=== PATIENT | male | born 1965 | race Caucasian/White ===

== ENCOUNTER 2019-12-25 00:19 | Outpatient (CLI) | payer OTHER, SELFPAY ==
[2019-12-25 19:01] LABS: SARS-CoV-2 RNA PCR Negative
== END 2019-12-25 00:20 | disposition home or self-care (01) ==
LOC: ANHCOVIDDT 00:19
PROVIDERS: PCP Family Medicine; Visit Provider Internal Medicine Gastroenterology
DX: Z01.812 Encounter for preprocedural laboratory examination (principal); Z11.59 Encounter for screening for other viral diseases
CPT/HCPCS: 87635; C9803; U0003

== ENCOUNTER 2019-12-27 03:19 | Day surgery (SDC) | payer OTHER, SELFPAY ==
[2019-12-19 14:50] VITALS: BMI 26.7
--- NOTE | 2019-12-27 06:25 | WPDANESEPPF ---
Anes - Initial Pre Proc Eval Procedure: Operation Date: 12/27/19 07:30 Proposed Procedures p Screening Colonoscopy - Sarwat Chandra MD Date/Time: 12/27/19 06:25 Surgeon: Sarwat Chandra MD Pre Op Diagnosis: neoplasm screening, hx of polyps Patient Data Age: 54 Gender: M Height: 5 ft 11 in Weight: 87 kg Allergies Allergy/AdvReac Type Severity Reaction Status Date / Time No Known Allergies Allergy Unknown Verified 12/19/19 14:54 Home Medications Medication Instructions Recorded Confirmed Type eszopiclone 2 mg tablet 2 mg PO QPM #90 tablet 10/02/19 12/19/19 Rx Patient hx anesthesia problems: none Family hx anesthesia problems: none PMFSH Past Medical History Medical History (Updated 12/27/19 @ 06:25 by Tobi Bryan MD) JESSIKA (obstructive sleep apnea) Overweight Pre-diabetes Family History Family History Other Diabetes mellitus Family history of arthritis Hypertension Social History Social History Smoking status: Former smoker Smoking end date: 06/12/03 Alcohol intake: current Gender identity (if verbalized by the patient): Male Anes - Eval Final PreProcedure Day of Procedure 12/27/19 06:25 Patient weight: overweight Heart: regular rate and rhythm Lungs: clear to auscultation Airway: Mallampati scale class II Neurological: alert and oriented Last oral intake: >/= 8 hours ASA classification: II Emergent: no Anesthetic plan: proceed Anesthesia type and monitoring: general GIVS and standard monitoring Informed Consent: The patient's anesthetic plan and its attendant risks and benefits were discussed with the patient/family/POA. Questions were solicited and answers provided to the satisfaction of the patient/family/POA.
[2019-12-27] MEDS: LACTATED RINGERS 1,000 ML 150 ML IV CONT (06:48)
[2019-12-27 06:50] VITALS: BP 133/88; PULSE 73; RESP 16; TEMP 36.6; O2SAT 100; BMI 26.2
--- NOTE | 2019-12-27 06:59 | P.HP_ITS ---
History of Present Illness History of Present Illness Consent: Risks, benefits, and alternatives have been discussed and questions answered. Patient agrees to proceed with procedure. Chief complaint: neoplasm screening, hx of polyps Narrative: Sarwat Casillas is a 54 year old male Here for screening colonoscopy. He did have polyps removed 5 years ago. [facility] Past Medical History Medical History JESSIKA (obstructive sleep apnea) Overweight Pre-diabetes Family History Family History Other Diabetes mellitus Family history of arthritis Hypertension Social History Social History Smoking status: Former smoker Smoking end date: 06/12/03 Alcohol intake: current Gender identity (if verbalized by the patient): Male Meds Home Medications and Allergies Home Medications Medication Instructions Recorded Confirmed Type eszopiclone 2 mg tablet 2 mg PO QPM #90 tablet 10/02/19 12/27/19 Rx Allergies Allergy/AdvReac Type Severity Reaction Status Date / Time No Known Allergies Allergy Unknown Verified 12/27/19 06:36 Vital Signs Vital Signs - 24 hr 12/27/19 06:50 Temperature 36.6 C Pulse Rate 73 Respiratory Rate 16 Blood Pressure 133/88 Pulse Oximetry 100 Exam Resp: Auscultation: clear to auscultation bilaterally Cardio: Rate: regular rate Rhythm: regular rhythm GI: GI Palp: Yes Soft to palpation and No Tenderness to palpation present (GI) Assessment and Plan Assessment and plan (1) Colon cancer screening: Code(s): Z12.11 - Encounter for screening for malignant neoplasm of colon Status: Acute Assessment and Plan: Colonoscopy with possible biopsy or polypectomy or cautery or injection of substances.
[2019-12-27 07:47] VITALS: BP 95/63; PULSE 67; RESP 17; O2SAT 96
[2019-12-27 07:57] VITALS: BP 100/65; PULSE 67; RESP 16; O2SAT 97
[2019-12-27 08:07] VITALS: BP 120/77; PULSE 60; RESP 15; O2SAT 99
--- NOTE | 2020-06-16 17:49 | PM.IMHP ---
H&P: HPI History of Present Illness Date/Time: 06/16/20 17:49 Chief Complaint: Myocardial infarction Narrative: Sarwat Casillas is a 54 year old male who has a history of having diabetes type 2 and hyperlipidemia. The patient's last A1c was around 7.0. The patient is intolerant to most p.o. medications for diabetes and takes medication once a week. He does follow with dermatology nurse. The patient states that he takes rybelus and that seems to work well for him. He takes it about once a week. The patient tried metformin but it gave him diarrhea. He tried the pride and he had insomnia as well as Januvia that gave him insomnia and forgets a was very expensive. He also tried Tradjenta which was also too expensive. He tried metformin but it gave him diarrhea. The patient tried to take every type of statin but he stated he had severe leg cramps and pains and was not able to take it. The patient stopped taking Zetia because he felt that it may have increased his A1c. Patient stated that he believes he started having chest pain around the 10 of June and had no previous cardiac events. The patient currently does not have any chest pain however he did follow-up with his primary care office today who did an EKG. Inferior infarct problem bleed a recent with posterior extensions. Moderate ST depression. Abnormal EKG. The patient was seen by Dr. Barrera today and Dr. Barrera recommended that the patient go to the emergency room however the patient did not want to go to the emergency room and therefore we decided the best decision was for the patient to become a direct admission. The patient was agreeable to becoming a direct admission is observation on date of service a 06/16/2020. Review of Systems Review of Systems: All systems reviewed & are unremarkable except as noted in HPI and below Constitutional: Constitutional: Reports as per HPI and Reports no additional constitutional complaints Eyes: Eyes: Reports as per HPI and Reports no additional eye complaints ENT: Reports system reviewed and no additional complaints, except as documented and Reports Normal hearing present Cardiovascular: Cardiovascular: Reports no additional cardiovascular complaints Respiratory: Respiratory: Reports no additional respiratory complaints and Reports no additional respiratory complaints Gastrointestinal: Gastrointestinal: Reports as per HPI and Reports no additional gastrointestinal complaints Musculoskeletal: Musculoskeletal: Reports no additional musculoskeletal complaints Integumentary/Breasts: Skin/Breast: Reports system reviewed and no additional complaints, except as docu and Reports as per HPI Neurologic: Reports system reviewed and no additional complaints, except as documented, Reports as per HPI and Reports Normal hearing present Psychiatric: Psychiatric: Reports no additional psychiatric complaints and Reports as per HPI Endocrine: Endocrine: Reports no additional endocrine complaints Hematologic/Lymphatic: Hematologic/Lymphatic: Reports no additional hematologic/lymphatic complaints Allergic/Immunologic: Allergic/Immunologic: Reports no additional allergic/immunologic complaints PMFSH Past Medical History Medical History (Updated 06/16/20 @ 18:11 by Gabriela Roper NP) JESSIKA (obstructive sleep apnea) Uses a dental apparatus. Overweight Pre-diabetes Type 2 diabetes mellitus without complications Last A1c 7.0. Surgical History Surgical History (Updated 06/16/20 @ 18:01 by Gabriela Roper NP) No history of previous surgery Family History Family History (Updated 06/16/20 @ 18:07 by Gabriela Roper NP) Mother Hypertension Diabetes mellitus Hyperlipidemia Sibling Cerebrovascular accident Sibling Hyperlipidemia Other Family history of arthritis Social History Social History (Updated 06/16/20 @ 18:09 by Gabriela Roper NP) Social History: And she is the durable power associate attorney for healthcare. The patien
== END 2019-12-27 08:16 | disposition home or self-care (01) ==
PROVIDERS: PCP Family Medicine; Visit Provider Internal Medicine Gastroenterology
PROC: 0DJD8ZZ Inspection of Lower Intestinal Tract, Via Natural or Artificial Opening Endoscopic (ICD-10-PCS; CPT 45378; principal; 2019-12-27 07:30)
DX: Z12.11 Encounter for screening for malignant neoplasm of colon (principal); K64.8 Other hemorrhoids; K57.30 Diverticulosis of large intestine without perforation or abscess without bleeding; G47.33 Obstructive sleep apnea (adult) (pediatric); R73.03 Prediabetes; Z87.891 Personal history of nicotine dependence
CPT/HCPCS: 45378; 87635; C9803; J2704; J7120; U0003

== ENCOUNTER 2020-06-16 16:58 | Inpatient (IN) | payer OTHER, SELFPAY ==
--- NOTE | ~2020-06-16 | XR_ITS ---
EXAMINATION: XR chest 2V EXAM DATE: 06/16/2020 19:06 INDICATION: Possible myocardial infarction last week, patient having cardiac catheterization. TECHNIQUE: Frontal and lateral projections of the chest obtained and reviewed. Comparison is made to prior examination from 03/30/2017. FINDINGS: The lungs are clear. There are no pleural effusions. The cardiomediastinal silhouette is within normal limits. There is no pneumothorax suspected. The bones and soft tissues are unremarkab le. IMPRESSION: No acute cardiopulmonary findings. Reviewed, dictated and finalized at location A. SUPERINTENDENT
[2020-06-16 17:15] VITALS: BMI 27.6
--- NOTE | 2020-06-16 17:21 | ECG_ITS ---
Measurements Intervals [place] Rate: 59 P: 44 HI: 162 QRS: -17 QRSD: 92 T: 31 QT: 421 QTc: 419 Interpretive Statements SINUS BRADYCARDIA EARLY PRECORDIAL R/S TRANSITION INFERIOR INFARCT, AGE INDETERMINATE BASELINE ARTIFACT- II, III, AVF ABNORMAL ECG Electronically Signed On 06-16-2020 18:10:45 FINGERNAIL TECHNICIAN by Thiago Ramirez D.O.
[2020-06-16 17:36] VITALS: BP 134/95; PULSE 66; RESP 18; TEMP 36.6; O2SAT 98
[2020-06-16 17:57] LABS: Hematocrit 42.9 % (42.0-52.0); Hemoglobin 15.1 g/dL (14.0-18.0); Mean Corpuscular HGB Conc 35.2 g/dl (32-36); Mean Corpuscular Hemoglobin 31.6 pg (26-34); Mean Corpuscular Volume 89.7 fl (80-100); Mean Platelet Volume 10.3 fl (7.4-10.4); Platelet Count Result 218 k/mm3 (150-375); Red Blood Count 4.78 M/mm3 (4.6-6.20); Red Cell Distribution Width 11.8 % (11.5-14.5); White Blood Count 5.3 K/mm3 (4.5-10.0)
[2020-06-16 18:07] LABS: Prothrombin Time 13.9 Seconds (11.1-14.7)
[2020-06-16 18:14] LABS: Anion Gap 8 mmol/L (8-16); Blood Urea Nitrogen 20 mg/dL (9-20); Calcium 9.2 mg/dL (8.4-10.2); Carbon Dioxide 24 mmol/L (22-30); Chloride 109 mmol/L (98-107); Estimated CRCL calculation 96 ml/min; Estimated Glomerular Filt Rate > 60; Glucose 141 mg/dL (75-110); Sodium 141 mmol/L (137-145)
--- NOTE | 2020-06-16 18:26 | PM.IMHP ---
H&P: HPI History of Present Illness Date/Time: 06/16/20 18:26 Chief Complaint: It too far off the myocardial infarction Narrative: Sarwat Casillas is a 54 year old male who has a history of having diabetes type 2 and hyperlipidemia. The patient's last A1c was around 7.0. The patient is intolerant to most p.o. medications for diabetes and takes medication once a week. He does follow with carrier loader. The patient states that he takes rybelus and that seems to work well for him. He takes it about once a week. The patient tried metformin but it gave him diarrhea. He tried the pride and he had insomnia as well as Januvia that gave him insomnia and forgets a was very expensive. He also tried Tradjenta which was also too expensive. He tried metformin but it gave him diarrhea. The patient tried to take every type of statin but he stated he had severe leg cramps and pains and was not able to take it. The patient stopped taking Zetia because he felt that it may have increased his A1c. Patient stated that he believes he started having chest pain around the 10 of June and had no previous cardiac events. The patient currently does not have any chest pain however he did follow-up with his primary care office today who did an EKG. Inferior infarct problem bleed a recent with posterior extensions. Moderate ST depression. Abnormal EKG. The patient was seen by Dr. Barrera today and Dr. Barrera recommended that the patient go to the emergency room however the patient did not want to go to the emergency room and therefore we decided the best decision was for the patient to become a direct admission. The patient was agreeable to becoming a direct admission is observation on date of service a 06/16/2020. Review of Systems Review of Systems: All systems reviewed & are unremarkable except as noted in HPI and below Constitutional: Constitutional: Reports as per HPI and Reports no additional constitutional complaints Eyes: Eyes: Reports as per HPI and Reports no additional eye complaints ENT: Reports system reviewed and no additional complaints, except as documented and Reports Normal hearing present Cardiovascular: Cardiovascular: Reports no additional cardiovascular complaints Respiratory: Respiratory: Reports no additional respiratory complaints and Reports no additional respiratory complaints Gastrointestinal: Gastrointestinal: Reports as per HPI and Reports no additional gastrointestinal complaints Musculoskeletal: Musculoskeletal: Reports no additional musculoskeletal complaints Integumentary/Breasts: Skin/Breast: Reports system reviewed and no additional complaints, except as docu and Reports as per HPI Neurologic: Reports system reviewed and no additional complaints, except as documented, Reports as per HPI and Reports Normal hearing present Psychiatric: Psychiatric: Reports no additional psychiatric complaints and Reports as per HPI Endocrine: Endocrine: Reports no additional endocrine complaints Hematologic/Lymphatic: Hematologic/Lymphatic: Reports no additional hematologic/lymphatic complaints Allergic/Immunologic: Allergic/Immunologic: Reports no additional allergic/immunologic complaints [facility] Past Medical History Medical History (Updated 06/16/20 @ 18:11 by Gabriela Roper NP) JESSIKA (obstructive sleep apnea) Uses a dental apparatus. Overweight Pre-diabetes Type 2 diabetes mellitus without complications Last A1c 7.0. Surgical History Surgical History (Updated 06/16/20 @ 18:01 by Gabriela Roper NP) No history of previous surgery Family History Family History (Updated 06/16/20 @ 18:07 by Gabriela Roper NP) Mother Hypertension Diabetes mellitus Hyperlipidemia Sibling Cerebrovascular accident Sibling Hyperlipidemia Other Family history of arthritis Social History Social History (Updated 06/16/20 @ 18:09 by Gabriela Roper NP) Social History: And she is the durable power assistant district attorney for heal
[2020-06-16 18:31] VITALS: BP 143/95; PULSE 67; PULSE 71; RESP 15; TEMP 36.6; O2SAT 98
[2020-06-16] MEDS: ROSUVASTATIN 10 MG TABLET PO (18:43)
[2020-06-16] MEDS: ENOXAPARIN 100 MG/ML SYRINGE 90 MG SUB-Q (18:43)
[2020-06-16 19:02] LABS: Magnesium 2.3 mg/dL (1.6-2.3)
[2020-06-16 19:04] LABS: Hemoglobin A1C 6.4 % (<5.7)
--- NOTE | 2020-06-16 19:08 | ADMGEN ---
This patient, Sarwat Casillas, was admitted to [facility]. Patient/family oriented to hospital policies and general routines including ID bracelet, bed and alarms, visiting hours, pain management, procedures, bathroom and other care routines, personal items, smoking policy, room service/diet, and visiting hours. Information on how to activate the Rapid Response Team has been discussed. Patient/Family are encouraged to report perceived risks to care and to ask questions if they do not understand what they are told or what they should do.
[2020-06-16 19:11] LABS: Lactic Acid Reflex 1.6 mmol/L (0.7-2.1)
[2020-06-16 19:52] VITALS: BP 128/86; PULSE 72; RESP 20; TEMP 36.5; O2SAT 97
[2020-06-16 20:00] VITALS: PULSE 80
[2020-06-16 21:01] LABS: Add Urine Microscopic? YES; Appearance Urine Clear (Clear); Bilirubin Urine Negative (Negative); Blood Urine Negative (Negative); Calcium Oxalate Crystals Urine Present /hpf; Color Urine Yellow (Yellow); Glucose Urine UA 2+ mg/dL (Negative); Ketones Urine Negative (Negative); Leukocyte Esterase Ur Negative LEU/UL (Negative); Mucus Urine Rare /lpf; Nitrate Urine Negative (Negative); Protein Urine Negative (Negative); RBC Urine 0-2 /hpf (0-2); Specific Grav Ur 1.028 (1.001-1.035); WBC Urine 0-3 /hpf
[2020-06-16 22:00] VITALS: PULSE 63
[2020-06-16 23:31] VITALS: BP 131/82; PULSE 77; RESP 14; TEMP 36.7; O2SAT 98
[2020-06-16] MEDS: MELATONIN 3 MG TABLET PO (23:32)
[2020-06-16] MEDS: LORazepam (*CRX) 0.5 MG TABLET PO (23:32)
[2020-06-16 23:37] LABS: Glucose Point of Care 123 (65-105)
[2020-06-17] VITALS (29 sets, daily range): BP systolic 113–151; BP diastolic 79–105; PULSE 60–88; RESP 11–20; TEMP 36.4–36.8; O2SAT 94–99
--- NOTE | 2020-06-17 | ECHO_ITS ---
Patient Info Name: Sarwat Casillas Age: 54 years : 1965 Gender: Male Ht: 71 in Wt: 198 lbs BSA: 2.14 m2 HR: 73 bpm BP: 129 / 79 mmHg Heart Rhythm: Sinus Rhythm Technical Quality: Good Exam Date: 06/17/2020 8:20 AM Exam Location: [facility] Patient Status: Inpatient Admit Date: 06/16/2020 Staff Ordering Physician: Luis Fernando Barrera MD Agricultural Appraiser: Josue Estrada, DONITA, RT Attending Provider: Tana Morales PA-C Referring Physician: Bruce BEST; Exam Type: CA echo doppler color flow Study Info Indications R07.89 - Other chest pain Complete two-dimensional, color flow and Doppler transthoracic echocardiogram is performed. Strain analysis performed. Summary 1. Complete two-dimensional, color flow and Doppler transthoracic echocardiogram is performed. 2. Left ventricular chamber dimension is normal. 3. Left ventricular systolic function is mildly reduced, estimated at 50-55%. 4. There is mildly increased left ventricular wall thickness. 5. The left ventricular diastolic function is grade I diastolic dysfunction. 6. Global longitudinal strain is abnormal at -14 %. 7. The basal inferior wall is akinetic. 8. The mid inferior wall, and mid inferolateral wall are hypokinetic. 9. Right ventricular chamber dimension is mildly enlarged. 10. Right ventricular systolic function is reduced. 11. There is mild to moderate mitral valve regurgitation. 12. There is mild tricuspid valve regurgitation. Left Ventricle Left ventricular chamber dimension is normal. Left ventricular systolic function is mildly reduced, estimated at 50-55%. There is mildly increased left ventricular wall thickness. The left ventricular diastolic function is grade I diastolic dysfunction. Global longitudinal strain is abnormal at -14 %. The basal inferior wall is akinetic. The mid inferior wall, and mid inferolateral wall are hypokinetic. All other pierre appear normal. Right Ventricle Right ventricular chamber dimension is mildly enlarged. Right ventricular systolic function is reduced. Left Atria Left atrial chamber dimension is normal. Right Atria Right atrial chamber dimension is normal. Atrial Septum Intact interatrial septum visualized by color flow imaging. Aortic Valve The aortic valve is trileaflet. There is no aortic valve sclerosis. There is no aortic valve stenosis. There is trace aortic valve regurgitation. Pulmonic Valve The pulmonic valve is normal. There is no pulmonic valve stenosis. There is trace pulmonic regurgitation. Mitral Valve The mitral valve has normal leaflets. There is no mitral valve stenosis. There is mild to moderate mitral valve regurgitation. Tricuspid Valve The tricuspid valve leaflets are normal. There is no significant tricuspid valve stenosis. There is mild tricuspid valve regurgitation. No pulmonary hypertension, estimated pulmonary arterial systolic pressure is 25 mmHg. Pericardium/Pleural The pericardium appears normal. There is no pericardial effusion. Inferior Vena Cava Normal inferior vena cava with >50% collapse upon inspiration consistent with normal right atrial pressure, 5 mmHg. Aorta The aortic root size at the sinus of Valsalva is normal. The prox ascending aorta size is normal. Left Ventricular Outflow Tract Name Value Normal
[2020-06-17 06:26] LABS: Magnesium 2.2 mg/dL (1.6-2.3)
[2020-06-17 06:38] LABS: Glucose Point of Care 158 (65-105)
[2020-06-17 06:42] LABS: Troponin I 0.941 ng/mL (0.000-0.034)
--- NOTE | 2020-06-17 10:47 | WPDMODSED ---
Moderate Sedation Note-Pt Data Patient Data Diagnosis: recent myocardial infarction Present Complaint: no complaints Procedure to be performed/Plan: left heart catheterization Allergies Allergy/AdvReac Type Severity Reaction Status Date / Time No Known Allergies Allergy Unknown Verified 06/16/20 14:11 Home Medications Medication Instructions Recorded Confirmed Type semaglutide 3 mg tablet 3 mg PO WEEKLY #1 tablet 01/24/20 06/16/20 Rx eszopiclone 2 mg tablet 2 mg PO QPM #90 tablet 04/14/20 06/16/20 Rx Current Medications: Active Medications Aspirin (Aspirin 325 Mg Tablet) 325 mg PO DAILY@0800 [facility] Last Admin: 06/16/20 19:03 Dose: Not Given Documented by: Dextrose (Dextrose 50% 25 Gm/50 Ml Syringe) 12.5 gm IV PUSH PRN PRN; Protocol PRN Reason: Hypoglycemia Enoxaparin Sodium (Enoxaparin 100 Mg/Ml Syringe) 90 mg SUB-Q Q24H [facility] Last Admin: 06/16/20 18:43 Dose: 90 mg Documented by: Glucagon (Glucagon For Inj 1 Mg Vial) 1 mg IM PRN PRN; Protocol PRN Reason: Hypoglycemia Glucose (Glucose Oral Gel 15 Gm Of Glucse In 37.5 Gm Tube) 15 gm PO PRN PRN; Protocol PRN Reason: Hypoglycemia Dextrose (Dextrose 5% 1,000 Ml) 1,000 mls @ 100 mls/hr IVPB PRN PRN; Protocol PRN Reason: Hypoglycemia Insulin Aspart (Insulin Aspart (*Bkc) 100 Units/Ml) 2 - 5 units SUB-Q Q6HR AZALEA; Protocol Last Admin: 06/17/20 06:59 Dose: Not Given Documented by: Non-Formulary Medication (Eszopiclone [Lunesta]) 2 mg PO QPM [facility] Stop: 07/17/20 18:01 Rosuvastatin Calcium (Rosuvastatin 10 Mg Tablet) 10 mg PO QPM [facility] Last Admin: 06/16/20 18:43 Dose: 10 mg Documented by: Sedation/Anesthesia: No previous sedation/anesthesia problems (including family history). FOR[facility]LY [facility], [facility] Past Medical History Medical History (Updated 06/16/20 @ 18:11 by Gabriela Roper NP) JESSIKA (obstructive sleep apnea) Uses a dental apparatus. Overweight Pre-diabetes Type 2 diabetes mellitus without complications Last A1c 7.0. Surgical History Surgical History (Updated 06/16/20 @ 18:01 by Gabriela Roper NP) No history of previous surgery Family History Family History (Updated 06/16/20 @ 18:07 by Gabriela Roper NP) Mother Hypertension Diabetes mellitus Hyperlipidemia Sibling Cerebrovascular accident Sibling Hyperlipidemia Other Family history of arthritis Social History Social History (Updated 06/16/20 @ 18:09 by Gabriela Ropre NP) Social History: And she is the durable power ip technology transactions attorney for healthcare. The patient is a full code. The patient has 1 son who is 26 and lives with him. The patient works on a [employer] for [employer] and these papers. The patient is a former smoker. He quit about 16 and half years ago. Drinks maybe 2 standard drinks per week. No marijuana or illicit drugs. Smoking status: Former smoker Tobacco type: cigarettes Second hand tobacco smoke exposure: Yes Smoking end date: 06/12/03 Alcohol intake: current Drinks per week: 1 Substance use: never Substance use type: does not use Living arrangements: with family Gender identity (if verbalized by the patient): Male Spiritual care concerns: No Mod Sed Physical Exam Physical Exam Pre Procedural Exam: Normal: Appearance, Neck, Throat, Airway, Lungs, Heart Size, Heart Rate, Heart Rhythm, Neuro Exam and Extremities Hours since solid foods: 12 Hours since liquid intake: 12 Internal Medicine - PN: Obj Da Vital Signs Vital Signs: Vital Signs - 24 hr 06/16/20 17:36 06/16/20 18:31 06/16/20 19:52 Temperature 36.6 C 36.6 C 36.5 C Pulse Rate 66 67 72 Respiratory Rate 18 15 20 Blood Pressure 134/95 H 143/95 H 128/86 Pulse Oximetry 98 98 97 06/16/20 20:00 06/16/20 22:00 06/16/20 23:31 Temperature 36.7 C Pulse Rate 80 63 77 Respiratory Rate 14 Blood Pressure 131/82 Pulse Oximetry 98 06/17/20 00:00 06/17/20 01:59 06/17/20 04:00 Temperature 36.4 C Pulse Rate 64 60 76 Respiratory Rate 11 L Blood Press
--- NOTE | 2020-06-17 12:02 | ECG_ITS ---
Measurements Intervals [place] Rate: 63 P: 58 [place]: 157 QRS: -7 QRSD: 90 T: 7 QT: 435 QTc: 449 Interpretive Statements SINUS RHYTHM EARLY PRECORDIAL R/S TRANSITION INFERIOR INFARCT, PROBABLY RECENT ABNORMAL ECG Electronically Signed On 06-17-2020 13:59:50 IRISH MOSS GATHERER by Thiago Ramirez D.O.
--- NOTE | 2020-06-17 12:08 | WPDCARDPROC ---
Cardiac Cath Procedure Note Date of procedure:: 06/17/20 Performing physician:: Greg Beavers MD Indication:: inferior wall myocardial infarction Brief clinical history:: this is a 54-year-old man with type 2 diabetes who experienced ischemic chest pain of significance about 5-6 days ago. Electrocardiogram suggested inferior wall infarction has occurred. Troponin levels are elevated but on the decline. Procedure Procedure performed:: Left heart catheterization with left ventriculography and coronary angiography PCI(RAMON) to distal right coronary artery Sedation/Medication given:: fentanyl 50 mg Versed 2 mg case start time 11:02 a.m. case end time 11:59 a.m. sedation provided by Kym Bender RN , trained observer Access site:: right femoral artery Estimated blood loss:: 20-30 cc Procedure note:: patient was brought to the cardiac catheterization lab in the postabsorptive state. The right femoral triangle was prepared and draped in the usual fashion. Anesthesia was provided with 1% lidocaine infiltrated locally. Using the modified Seldinger technique the femoral artery was punctured and a 5 Malian vascular sheath was placed. Left heart catheterization was then carried out using a 5 Malian angled pigtail catheter to measure left-sided hemodynamics and to inject LV g in the LUIS projection. After this the left coronary artery was injected using a standard FL4 catheter in the right coronary was injected using a standard JR4 catheter. The cine angiograms were then reviewed and PCI of the distal right coronary artery was recommended and carried out as detailed below. Prior to PCI 5 Malian sheath was upsized over a guidewire for 6 Malian device and the patient was systemically anticoagulated using a bolus and infusion of Angiomax any received Brilinta 180 mg p.o.. Following this PCI of the right coronary artery was carried out as detailed below. 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 Findings:: Hemodynamics: Central aortic pressure is 118/74 left ventricle 118/5 end-diastolic 11 there is no systolic gradient on pullback across the aortic valve. Left ventricle: The LV is of normal size the inferior wall is akinetic at the base hypodynamic in the apical segment the anterolateral segments contract well. The global ejection fraction is in the vicinity of 50-55%. Left main coronary artery is nicely patent the left anterior descending is a medium caliber artery extending down to around the apex there are minimal luminal irregularities in the LAD but no functionally significant disease. The circumflex is medium caliber giving rise to the marginal branches the circumflex also has modest luminal irregularities but no flow-limiting disease is identified. There is collateral filling the distal circumflex to the RPDA / RPL. Right coronary artery is large in caliber and dominant to the posterior circulation it is mild plaquing and luminal irregularity in the 2nd portion in the 3rd portion prior to the bifurcation is 100% occluded. Intervention: The right coronary ostium was engaged using a 6 Malian JR4 guiding catheter with side holes. A 0.014 BMW wire was advanced to the blue bean but would not penetrate the occluded portion of the vessel. Following this a 0.014 automatic pilot mechanic 150 wire was used to probe the occlusion in successfully advanced into the distal RCA. Following this the occluded segment was pre-dilated using a 2.5 x 20 mm emerge PTCA balloon restoring flow into the distal RCA. The wire was in the RPL branch. I then advanced the BMW wire back into the artery and positioned into the RPDA. Balloon inflations were made in the origin of the RPDA in the distal right coronary using the same PTCA balloon. There was high-grade stenosis at the origin of the RPL branch wh
--- NOTE | 2020-06-17 15:38 | PM.IMPN ---
Progress Note: A&P Assessment and Plan (1) Myocardial infarction: Qualifiers: Involved coronary artery: right coronary artery Myocardial infarction type: unspecified Qualified Code(s): I21.11 - ST elevation (STEMI) myocardial infarction involving right coronary artery Code(s): I21.9 - Acute myocardial infarction, unspecified Status: Acute Assessment and Plan: Patient had an episode of chest tightness on 06/10/2020, at which time he was evaluated in urgent care. It was recommended that he seek emergency care, however he went home at that time. He then followed up with his PCP several days later who referred him to cardiology. Based on these findings it was recommended that he be admitted to the hospital. He has been asymptomatic for several days now. He received therapeutic Lovenox. He underwent cardiac catheterization this afternoon and had stent placed in the distal right coronary artery, which was 100% occluded. He remains asymptomatic. Troponins elevated upon presentation with downward trend. Appreciate cardiology input He has been started on Brilinta and will begin aspirin tomorrow morning. He has also been started on metoprolol tartrate and rosuvastatin. Monitor symptoms closely (2) Type 2 diabetes mellitus without complications: Code(s): E11.9 - Type 2 diabetes mellitus without complications Status: Chronic Assessment and Plan: A1c 6.4 (06/16/2020). Blood sugars reasonably well controlled today. Continue Accu-Cheks q6 hours, SSI, hypoglycemic protocol (3) HLD (hyperlipidemia): Code(s): E78.5 - Hyperlipidemia, unspecified Status: Chronic Assessment and Plan: He has a history of hyperlipidemia but reports that he has had difficulty with tolerating statins in the past due to leg cramps. He was also recently on Zetia but stopped taking this as he thought it was negatively affecting his blood sugars. He has been started on 10 mg received a statin daily. I educated him about the importance of this medication and being to a provider prior to discontinuing this medication. Hopefully he will be able to tolerate this medicine. (4) JESSIKA (obstructive sleep apnea): Code(s): G47.33 - Obstructive sleep apnea (adult) (pediatric) Status: Chronic Assessment and Plan: The patient uses an oral apparatus that may be continued if he has this device with him. (5) Hemorrhoid: Code(s): K64.9 - Unspecified hemorrhoids Status: Acute Assessment and Plan: Patient reports a long history of hemorrhoids that often bleed. He had been taking aspirin several years ago and had even more issues with prolonged bleeding from his hemorrhoids. He is a bit concerned about this happening again while he takes anti-platelet medications. At this time, patient has no signs or symptoms of active bleeding and H&H is stable. Discussed at length the importance of anti-platelet medications to prevent stent occlusion. Also discussed at length hemorrhoid management. Will begin daily stool softener and recommend high-fiber diet. Should he continue to have issues, we discussed that there are multiple other treatment options that can be considered Subjective Date/time seen: 06/17/20 15:38 Interval history: Date of service: 06/17/2020 Sarwat Casillas is a 54-year-old male with a history of type 2 diabetes mellitus and obstructive sleep apnea who is seen in follow-up for inferior AK. He is doing well at this time. He had just returned from cardiac catheterization tolerated the procedure well. He has no pain at this time. Denies any issues with pain in his groin at the catheterization insertion site. He has absolutely no chest pain and in fact has not had any for several days. He denies arm pain, jaw pain, nausea, vomiting, or anxiety. He denies any concerns for heartburn. He does indicate concern for taking anti-platelet medications as in t
[2020-06-17] MEDS: SODIUM CHLORIDE 0.9% IV 1,000 ML 125 ML IV CONT (17:06)
[2020-06-17 17:10] LABS: Glucose Point of Care 101 (65-105)
[2020-06-17] MEDS: ROSUVASTATIN 10 MG TABLET PO (19:28)
--- NOTE | 2020-06-17 19:30 | PC.NURSE ---
Report received from Gerald Diop RN. Pt. resting comfortably this time with no complaints of pain. R groin site noted to be clean, dry, and intact with no evidence of bleeding or hematoma. Vital signs stable at this time. Will continue to monitor pt.
[2020-06-17 21:08] LABS: Glucose Point of Care 185 (65-105)
[2020-06-17] MEDS: TICAGRELOR 90 MG TABLET PO (21:22)
[2020-06-17] MEDS: METOPROLOL TARTRATE 25 MG TABLET PO (21:22)
[2020-06-17] MEDS: DOCUSATE SODIUM 100 MG CAPSULE PO (22:30)
[2020-06-17] MEDS: LORazepam (*CRX) 0.5 MG TABLET PO (23:34)
[2020-06-17] MEDS: MELATONIN 3 MG TABLET PO (23:34)
[2020-06-18] VITALS (7 sets, daily range): BP systolic 120–133; BP diastolic 83–97; PULSE 62–75; RESP 15–20; TEMP 36.1–37.1; O2SAT 96–99
--- NOTE | 2020-06-18 05:11 | ECG_ITS ---
Measurements Intervals [place] Rate: 74 P: 29 DE: 155 QRS: -24 QRSD: 94 T: -11 QT: 403 QTc: 447 Interpretive Statements SINUS RHYTHM EARLY PRECORDIAL R/S TRANSITION INFERIOR INFARCT, PROBABLY RECENT BASELINE ARTIFACT- I, II, III, AVR, AVL, AVF, V1-V2 ABNORMAL ECG Electronically Signed On 06-18-2020 9:37:47 CANDY FEEDER by Thiago Ramirez D.O.
[2020-06-18 05:42] LABS: Hematocrit 43.1 % (42.0-52.0); Hemoglobin 15.4 g/dL (14.0-18.0); Mean Corpuscular HGB Conc 35.7 g/dl (32-36); Mean Corpuscular Hemoglobin 31.3 pg (26-34); Mean Corpuscular Volume 87.6 fl (80-100); Mean Platelet Volume 10.3 fl (7.4-10.4); Platelet Count Result 242 k/mm3 (150-375); Red Blood Count 4.92 M/mm3 (4.6-6.20); Red Cell Distribution Width 11.7 % (11.5-14.5); White Blood Count 8.1 K/mm3 (4.5-10.0)
[2020-06-18 05:50] LABS: Anion Gap 8 mmol/L (8-16); Blood Urea Nitrogen 17 mg/dL (9-20); Calcium 8.7 mg/dL (8.4-10.2); Carbon Dioxide 23 mmol/L (22-30); Chloride 107 mmol/L (98-107); Estimated CRCL calculation 78 ml/min; Estimated Glomerular Filt Rate > 60; Glucose 141 mg/dL (75-110); Potassium 3.9 mmol/L (3.4-5.0); Sodium 138 mmol/L (137-145)
[2020-06-18 07:39] LABS: Glucose Point of Care 156 (65-105)
--- NOTE | 2020-06-18 08:20 | PC.NURSE ---
DR. VARGAS HERE TO SEE PT. CONDITION UPDATE GIVEN.
--- NOTE | 2020-06-18 08:29 | PM.PNCARD ---
Progress Note: A&P Assessment and Plan (1) Myocardial infarction: Qualifiers: Myocardial infarction type: unspecified Involved coronary artery: right coronary artery Qualified Code(s): I21.11 - ST elevation (STEMI) myocardial infarction involving right coronary artery Code(s): I21.9 - Acute myocardial infarction, unspecified Status: Acute Assessment and Plan: Continue aspirin 81 mg daily for life. Continue Brilinta 90 mg p.o. b.i.d. for 1 year. Continue beta-kendell and statin. Counseled patient regarding importance of complying with aspirin and Brilinta. Informed patient avoid heavy lifting for 3 days. Patient can return back to work after 2 weeks from now. Stable to be discharged home from cardiac standpoint (2) HLD (hyperlipidemia): Code(s): E78.5 - Hyperlipidemia, unspecified Status: Chronic Assessment and Plan: Continue statin. Subjective Date/time seen: Date of service 06/18/20 08:29 Feels well today. Denies chest pain or shortness of breath. No swelling of the right groin. Review of Systems Constitutional: Constitutional: Denies chills, Denies fever(s) and Denies poor appetite Eyes: Eyes: Denies eye discharge, Denies loss of vision, Denies eye pain and Denies photophobia ENT: Denies dizziness, Denies epistaxis, Denies nasal congestion and Denies sore throat Cardiovascular: Cardiovascular: Denies chest pain, Denies syncope, Denies pedal edema, Denies leg edema, Denies palpitations, Denies dyspnea, Denies dyspnea on exertion and Denies orthopnea Respiratory: Respiratory: Denies cough, Denies dyspnea, Denies dyspnea on exertion and Denies wheezing Gastrointestinal: Gastrointestinal: Denies abdominal pain, Denies diarrhea, Denies nausea and Denies vomiting Genitourinary: Genitourinary: Denies hematuria, Denies genital lesions and Denies dysuria Musculoskeletal: Musculoskeletal: Denies arthralgias, Denies joint swelling and Denies numbness Integumentary/Breasts: Skin/Breast: Denies pruritus and Denies rash Neurologic: Denies dizziness, Denies syncope, Denies loss of vision and Denies numbness Psychiatric: Psychiatric: Denies anxiety and Denies depression Endocrine: Endocrine: Denies cold intolerance, Denies heat intolerance and Denies palpitations Hematologic/Lymphatic: Hematologic/Lymphatic: Denies easy bleeding and Denies easy bruising Allergic/Immunologic: Allergic/Immunologic: Denies urticaria and Denies wheezing Exam Const: General: cooperative, comfortable, no acute distress, alert and awake Nutritional Appearance: well nourished Orientation/consciousness: patient oriented x3 HENMT: Head: normal to inspection, normocephalic and atraumatic Ears: hearing grossly normal bilaterally General nose exam: Normal external nose present, Normal nares present and no nasal discharge noted Face and sinus: normal facial exam and no erythema Mouth: No drooling and No restricted motion Throat: uvula midline Eyes: General: appearance normal, both eyes and all related structures Alignment and Position: position normal Conjunctivae: conjunctivae normal Sclera: sclerae normal Direct Ophthalmoscopy: No photophobia Neck: Neck: normal visual inspection and no JVD Thyroid: thyroid normal Carotids: no bruits Lymphatic: lymphedema not noted Chest: Chest palpation & inspection: normal inspection of the chest and no tenderness Resp: Effort & Inspection: normal respiratory effort and no nasal flaring Auscultation: clear to auscultation bilaterally, no crackles, no rales and no wheezes Cardio: Jugular venous distension: no JVD Rate: regular rate Rhythm: regular rhythm Heart sounds: S1 normal heart sound present, S2 normal heart sound present, no gallops, no murmurs and no rubs GI: Inspection: non-distended GI Palp: No abdominal tenderness and No Soft to palpation Auscultation: normal bowel sounds Rectal Exam: deferred : General: No no CVA tenderness Back/Spine/Pel
[2020-06-18] MEDS: ASPIRIN 81 MG CHEWABLE TABLET PO (09:31)
[2020-06-18] MEDS: DOCUSATE SODIUM 100 MG CAPSULE PO (09:32)
[2020-06-18] MEDS: METOPROLOL TARTRATE 25 MG TABLET PO (09:32)
[2020-06-18] MEDS: TICAGRELOR 90 MG TABLET PO (09:33)
--- NOTE | 2020-06-18 10:20 | PC.NURSE ---
WISAM Mckinney PA HERE TO SEE PT. CONDITION UPDATE GIVEN. NOTIFIED OF DR. VARGAS'S DISCHARGE INSTRUCTIONS TO INCLUDE.
--- NOTE | 2020-06-18 10:45 | PM.DS ---
DS: Admitting Diagnosis Admitting Diagnosis Admitting Diagnosis: Myocardial Infarction DS: Discharge Diagnosis Discharge Diagnosis (1) Myocardial infarction: Qualifiers: Involved coronary artery: right coronary artery Myocardial infarction type: unspecified Qualified Code(s): I21.11 - ST elevation (STEMI) myocardial infarction involving right coronary artery Code(s): I21.9 - Acute myocardial infarction, unspecified Status: Acute Assessment and Plan: Patient had an episode of chest tightness on 06/10/2020, at which time he was evaluated in urgent care. It was recommended that he seek emergency care, however he went home at that time, signing out AMA. He then followed up with his PCP several days later who referred him to cardiology. Based on these findings it was recommended that he be admitted to the hospital. He had been asymptomatic for several days following initial event. He received therapeutic Lovenox. Troponins elevated upon presentation with downward trend. He underwent cardiac catheterization on 06/17/20 and had stent placed in the distal right coronary artery, which was 100% occluded. He tolerated the procedure well and remained asymptomatic. He was seen in consultation by cardiology. He will begin Brilinta 90 mg b.i.d. for 1 year, 81 mg aspirin daily for life, metoprolol tartrate 25 mg b.i.d., 10 mg rosuvastatin daily, and nitro as needed. He will follow-up with cardiology in 1 week as an outpatient. He will then begin cardiac rehab in approximately 2 weeks. He will remain off work for 2 weeks as well and a note was provided. (2) Type 2 diabetes mellitus without complications: Code(s): E11.9 - Type 2 diabetes mellitus without complications Status: Chronic Assessment and Plan: A1c 6.4 (06/16/2020). Blood sugars were well controlled. He will continue his oral hypoglycemic agents (3) HLD (hyperlipidemia): Code(s): E78.5 - Hyperlipidemia, unspecified Status: Chronic Assessment and Plan: He has a history of hyperlipidemia but reports that he has had difficulty with tolerating statins in the past due to leg cramps. He was also recently on Zetia but stopped taking this as he thought it was negatively affecting his blood sugars.He has been started on 10 mg rosuvastatin daily. I educated him about the importance of this medication and speaking to a provider prior to discontinuing this medication if he has difficulty with tolerability. Hopefully he will be able to tolerate this medicine with no issues. (4) JESSIKA (obstructive sleep apnea): Code(s): G47.33 - Obstructive sleep apnea (adult) (pediatric) Status: Chronic Assessment and Plan: The patient uses an oral apparatus that will be continued at home. (5) Hemorrhoid: Code(s): K64.9 - Unspecified hemorrhoids Status: Acute Assessment and Plan: Patient reports a long history of hemorrhoids that often bleed. He had been taking aspirin several years ago and had issues with prolonged bleeding from his hemorrhoids, therefore he stopped this medication. He is a bit concerned about this happening again while on anti-platelet therapy. He had no signs or symptoms of active bleeding and H&H remained stable. Discussed at length the importance of anti-platelet medications to prevent stent occlusion. Also discussed at length hemorrhoid management. Will begin daily stool softener and recommend high-fiber diet. Should he continue to have issues, we discussed that there are multiple other treatment options that can be considered and he can follow-up with his PCP. DS: Summary Hospital Course Reason for hospitalization: Myocardial infarction Hospital Course: Date of admission: 06/16/2020 Date of discharge: 06/18/2020 Sarwat Casillas is a 54-year-old male with a history of type 2 diabetes mellitus and obstructive sleep apnea who was directly admitted to [facility] on
--- NOTE | 2020-06-18 12:35 | PC.NURSE ---
REVIEWED DISCHARGE INSTRUCTIONS W/ PT. ALL QUESTIONS ANSWERED. VOICED UNDERSTANDING OF ALL. [facility] AND [facility]SO S[facility] W/ PT AT DISCHARGE.
[2020-06-18] MEDS: ROSUVASTATIN 10 MG TABLET PO (12:40)
--- NOTE | 2020-06-18 12:40 | PC.NURSE ---
DISCHARGED HOME, OUT VIA WC W/ ALL PERSONAL BELONGINGS AND DISCHARGE PACKET TO 'S WAITING CAR. NO CHANGE IN R. GROIN STATUS. STEADY GAIT. VOICES NO C/O. NO DISTRESS NOTED.
== END 2020-06-18 12:40 | disposition home or self-care (01) | DRG 247 ==
PROVIDERS: Family Medicine; Internal Medicine Cardiovascular Disease; Nurse Practitioner; Physician Assistant; Specialist; Admitting Provider Internal Medicine; PCP Family Medicine; Visit Provider Internal Medicine
PROC: 4A023N7 Measurement of Cardiac Sampling and Pressure, Left Heart, Percutaneous Approach (ICD-10-PCS; CPT 93452; principal; 2020-06-17 10:00)
PROC: 027034Z Dilation of Coronary Artery, One Artery with Drug-eluting Intraluminal Device, Percutaneous Approach (ICD-10-PCS; 2020-06-17 10:00)
DX: I21.11 ST elevation (STEMI) myocardial infarction involving right coronary artery (principal); E11.9 Type 2 diabetes mellitus without complications; E78.5 Hyperlipidemia, unspecified; G47.33 Obstructive sleep apnea (adult) (pediatric); K64.9 Unspecified hemorrhoids; G47.00 Insomnia, unspecified; Z87.891 Personal history of nicotine dependence
CPT/HCPCS: 36415; 71046; 80048; 81001; 83036; 83605; 83735; 84443; 84484; 85027; 85610; 93005; 93306; 93458; 96372; A9270; C1725; C1769; C1874; C1887; C1894; C9600; G0378; J0461; J0583; J1644; J1650; J2250; J2405; J3010; J7030; J7040

== ENCOUNTER 2020-07-14 11:42 | Outpatient (CLI) | payer OTHER, SELFPAY ==
--- NOTE | ~2020-07-14 | XR_ITS ---
XR wrist RT 2V DATE: 07/14/2020 12:07 INDICATION: Right wrist pain, lateral bruising TECHNIQUE: AP and lateral views COMPARISON: None FINDINGS: No fracture or dislocation, periosteal reaction or bone destruction, erosive change or jozef drocalcinosis or significant joint space narrowing is detected. IMPRESSION: Negative Reviewed, dictated and finalized at location A. 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
== END 2020-07-14 11:43 | disposition home or self-care (01) ==
PROVIDERS: PCP Family Medicine; Visit Provider Family Medicine
DX: M25.531 Pain in right wrist (principal)
CPT/HCPCS: 73100

== ENCOUNTER 2020-09-09 18:00 | Outpatient (RCR) | payer OTHER, SELFPAY ==
[2020-07-24 15:44] VITALS: PULSE 77
[2020-08-03 18:57] LABS: Glucose Point of Care 101 (65-105)
[2020-08-03 18:57] LABS: Glucose Point of Care 131 (65-105)
[2020-08-06 07:13] LABS: Glucose Point of Care 140 (65-105)
[2020-08-06 07:13] LABS: Glucose Point of Care 153 (65-105)
--- NOTE | 2020-08-19 18:13 | PCCPR ---
Addendum entered by Kaylene Langley RN 09/03/20 18:48: Continued absence Spoke with Irvin states out of town again with his job. States he never knows when or where he will be. He would like for us to check back in a week. Original Note: Irvin called and left a message saying that he will be absent today, tomorrow and next week.
--- NOTE | 2020-09-21 18:27 | PCCPR ---
DISCHARGING- Called Irvin as he has been absent (no call/no show) since 09/09/20. Only attending 8 sessions since 07/24/20. He does have a busy work schedule and travels often but many times does not call. Spoke with Irvin who states due to work he is not going to be returning. Early exit letter sent to .
== END 2020-09-21 18:26 | disposition home or self-care (01) ==
LOC: ANHCPREHAB 18:00
PROVIDERS: Family Provider Family Medicine; PCP Family Medicine; Visit Provider Internal Medicine Cardiovascular Disease
DX: Z95.5 Presence of coronary angioplasty implant and graft (principal); I25.2 Old myocardial infarction
CPT/HCPCS: 82948; 93798

== ENCOUNTER 2021-02-15 00:28 | Observation (INO) | payer OTHER, SELFPAY ==
[2021-02-15] VITALS (13 sets, daily range): BP systolic 109–171; BP diastolic 75–104; PULSE 58–81; RESP 12–20; TEMP 36–36.8; O2SAT 95–100; BMI 28.1
--- NOTE | ~2021-02-15 | XR_ITS ---
EXAMINATION: XR retrograde pyelo w/stent LT DATE: 02/15/2021 10:54 INDICATION: Left ureteral stone. TECHNIQUE: 59 intraoperative fluoroscopic views of the abdomen and pelvis were obtained. I was not pr esent. Fluoroscopy exposure time was 22 seconds. COMPARISON: CT abdomen and pelvis 02/15/2021 FINDINGS: The left-sided retrograde pyelogram demonstrates a 6 mm stone in proximal left ureter. Ther e is moderate left hydronephrosis. The final images demonstrate a left internal ureteral stent in exp ected position. IMPRESSION: 1. 6 mm stone in proximal left ureter. 2. Left internal ureteral stent in expected position. Reviewed, dictated and finalized at location A.
--- NOTE | ~2021-02-15 | CT_ITS ---
EXAMINATION: CT abdomen pelvis wo con DATE: 02/15/2021 01:36 INDICATION: Left lower quadrant abdominal pain. TECHNIQUE: Computed tomography (CT) of the abdomen and pelvis was performed without intravenous contr ast. Automated exposure control and iterative reconstruction technique were employed. The dose-length product was 611.96 mGy-cm. COMPARISON: Chest CT 04/26/2019 FINDINGS: The visualized portions of the lung bases demonstrate mild atelectasis. No pleural effusion . The heart size is normal. No pericardial effusion. There are coronary artery calcifications. The ga llbladder, spleen, pancreas, adrenal glands are normal. There is a 10 mm cyst in right kidney. There are 2 mm and 1 mm stones in left kidney. There is moderate left hydronephrosis and proximal hydrouret er. There is a 6 mm stone in proximal left ureter. The prostate is mildly enlarged. There is divertic ulosis of the colon without evidence of diverticulitis. There are no dilated loops of bowel. The appe ndix is normal. There are no pathologically enlarged lymph nodes. There is no free intraperitoneal fl uid. There is a small umbilical hernia containing fat. There are diverticula of the bladder. There is prominent fat in the inguinal canals bilaterally that may be small hernias. There is moderate lower lumbar spondylosis. IMPRESSION: 1. 6 mm stone in proximal left ureter with moderate left hydronephrosis and proximal hydroureter. 2. Small nonobstructing left kidney stones. Reviewed, dictated and finalized at location A. IMPRESSION: 1. 6 mm stone in proximal left ureter with moderate left hydronephrosis and pr oximal hydroureter. 2. Small nonobstructing left kidney stones.
--- NOTE | ~2021-02-15 | XR_ITS ---
EXAMINATION: XR abdomen/kub 1V DATE: 02/15/2021 01:53 INDICATION: Kidney stone. Left lower quadrant abdominal pain. TECHNIQUE: A supine view of the abdomen on 2 radiographs was obtained. COMPARISON: CT dated 02/15/2021 FINDINGS: 7 x 6 mm stone in the mid left ureter projecting over the left transverse process of L4. Additional t iny stone at the lower pole of the left kidney is indiscernible on the plain radiographs. Moderate am ount of stool scattered throughout the colon. Multiple gas-filled but not dilated loops of small remigio l throughout the abdomen and pelvis. IMPRESSION: 1. 7 x 6 mm stone in the mid left ureter. Reviewed, dictated and finalized at location A.
--- NOTE | 2021-02-15 01:01 | ED.GENADULT ---
HPI - General Adult General Chief complaint: Abdominal Pain Stated complaint: LLQ pain, Lower back pain Time Seen by Provider: 02/15/21 00:58 Source: RN notes reviewed History of Present Illness HPI narrative: Patient presents emergency department from home for abdominal pain. Patient states he had pain yesterday that resolved and then returned today the pain is located left lower quadrant radiates in the left flank described as sharp and stabbing denies any nausea vomiting or diarrhea states he had a low-grade temperature of 99 ?F at home and comes at home for the pain with no relief Related Data Home Medications Medication Instructions Recorded Confirmed docusate sodium 100 mg PO DAILY PRN 07/24/20 01/22/21 melatonin 5 mg PO WEEKLY 07/24/20 01/22/21 metoprolol tartrate 12.5 mg PO BID 07/24/20 01/22/21 clopidogrel [Plavix] 75 mg PO DAILY 07/29/20 01/22/21 Allergies Allergy/AdvReac Type Severity Reaction Status Date / Time No Known Allergies Allergy Unknown Verified 01/22/21 14:30 Review of Systems Review of Systems: General: Reports low-grade fever of 99 ?F ENT: Denies congestion Respiratory: Denies shortness of breath or cough CV: Denies chest pain or palpitations GI: See HPI denies burning, urgency, frequency or hematuria Musculoskeletal: Denies back pain or muscle pain Neuro: Denies numbness, tingling, weakness or focal weakness Skin: Denies rash Except as documented, all other systems reviewed and negative PMFSH Past Medical History Medical History Old AK (myocardial infarction) JESSIKA (obstructive sleep apnea) Uses a dental apparatus. Overweight Pre-diabetes Type 2 diabetes mellitus without complications Last A1c 7.0. Surgical History Surgical History No history of previous surgery Status post primary angioplasty with coronary stent Family History Family History Mother Diabetes mellitus Hyperlipidemia Hypertension Sibling Cerebrovascular accident Acute myocardial infarction Sibling Hyperlipidemia Other Family history of arthritis Social History Social History Social History: And she is the durable power civil rights attorney for healthcare. The patient is a full code. The patient has 1 son who is 26 and lives with him. 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 The patient is a former smoker. He quit about 16 and half years ago. Drinks maybe 2 standard drinks per week. No marijuana or illicit drugs. Smoking packs per day: 1 Smoking cigarettes per day: 20.0 Years smoked: 20 Smoking pack-years: 20.00 Smoking status: Former smoker Tobacco type: cigarettes Second hand tobacco smoke exposure: Yes Smoking end date: 06/12/03 Alcohol intake: current Drinks per week: 1 Substance use: never Substance use type: does not use Gender identity (if verbalized by the patient): Male Spiritual care concerns: No Exam Narrative: APPEARANCE: No acute distress, nontoxic, resting in bed HEENT: Normocephalic, atraumatic, OMM RESPIRATORY: No respiratory distress, clear to auscultation bilaterally with no rhonchi wheezing or rales CARDIOVASCULAR: RRR s murmur ABDOMINAL: Soft nondistended tender palpation left lower quadrant no tenderness left upper quadrant or right upper quadrant right lower quadrant no rebound or guarding MUSCULOSKELETAl: Moves all extremities. No clubbing, cyanosis or edema. NEURO: Awake and alert. Following commands, speech normal, no focal deficits SKIN:: Warm, dry. Normal Color PSYCHIATRIC: Normal affect/mood Course Course Emergency Course: Discussed with Dr. Tinajero presentation work-up at this time recommends admission with plan for stent placement in a.m. Discussed with Dr. Bonilla presentation work-up agree
[2021-02-15 01:09] LABS: Add Urine Microscopic? YES; Appearance Urine Clear (Clear); Bilirubin Urine Negative (Negative); Blood Urine 3+ (Negative); Color Urine Yellow (Yellow); Glucose Urine UA 3+ mg/dL (Negative); Ketones Urine 1+ mg/dL (Negative); Leukocyte Esterase Ur Negative LEU/UL (Negative); Mucus Urine Rare /lpf; Nitrate Urine Negative (Negative); Protein Urine 1+ mg/dL (Negative); RBC Urine >75 /hpf (0-2); Specific Grav Ur 1.024 (1.001-1.035); Urobilinogen Urine Negative mg/dL (<2.0)
[2021-02-15 01:10] LABS: Basophils Absolute Auto 0.1 K/mm3 (0.0-0.1); Basophils Percent Auto 0.5 % (0.2-1.2); Eosinophils Percent Auto 0.3 % (0-4.4); Hematocrit 51.8 % (42.0-52.0); Hemoglobin 18.3 g/dL (14.0-18.0); Immature Granulocyte Absolute 0.04 K/mm3 (0.00-0.031); Immature Granulocyte Percent A 0.3 % (0-0.5); Lymphocytes Absolute Auto 0.86 K/mm3 (0.9-3.2); Lymphocytes Percent Auto 6.9 % (18.3-44.2); Mean Corpuscular HGB Conc 35.3 g/dl (32-36); Mean Corpuscular Hemoglobin 32.1 pg (26-34); Mean Corpuscular Volume 90.9 fl (80-100); Mean Platelet Volume 10.1 fl (7.4-10.4); Monocytes Absolute Auto 0.6 K/mm3 (0.1-0.6); Monocytes Percent Auto 4.7 % (2.6-8.5); Neutrophils Absolute Auto 10.9 K/mm3 (1.3-6.7); Neutrophils Percent Auto 87.3 % (45.5-73.1); Platelet Count Result 233 k/mm3 (150-375); Red Cell Distribution Width 12.2 % (11.5-14.5); White Blood Count 12.5 K/mm3 (4.5-10.0)
[2021-02-15] MEDS: SODIUM CHLORIDE 0.9% IV 1,000 ML 999 ML IV CONT (01:19)
[2021-02-15 02:00] LABS: INR 1.1; Prothrombin Time 14.4 Seconds (11.1-14.7)
[2021-02-15 02:01] LABS: Partial Thromboplastin Time 31.5 SECONDS (22.3-36.8)
[2021-02-15 03:15] LABS: Alanine Aminotransferase 32 U/L (4-50); Alkaline Phosphatase 62 U/L (38-126); Anion Gap 8 mmol/L (8-16); Aspartate Amino Transferase 32 U/L (17-59); Bilirubin,Total 0.8 mg/dL (0.2-1.3); Blood Urea Nitrogen 29 mg/dL (9-20); Calcium 9.1 mg/dL (8.4-10.2); Carbon Dioxide 21 mmol/L (22-30); Chloride 104 mmol/L (98-107); Estimated Glomerular Filt Rate > 60; Glucose 220 mg/dL (65-110); Lipase 39 U/L (23-300); Potassium 3.7 mmol/L (3.4-5.0); Sodium 133 mmol/L (137-145)
--- NOTE | 2021-02-15 05:05 | PC.NURSE ---
Report to ESTEFANIA Eckert for [id number].
[2021-02-15] MEDS: SODIUM CHLORIDE 0.9% IV 1,000 ML 125 ML IV CONT (05:35)
[2021-02-15 08:40] LABS: Glucose Point of Care 105 mg/dl (65-105)
--- NOTE | 2021-02-15 09:10 | PC.NURSE ---
Pt to OR per bed. IV saline locked. Consent will be signed in OR.
[2021-02-15 09:17] LABS: Hemoglobin A1C 6.7 % (<5.7)
--- NOTE | 2021-02-15 09:32 | WPDURCON ---
Assessment and Plan Assessment and plan (1) Left ureteral stone: Code(s): N20.1 - Calculus of ureter Status: Acute Assessment and Plan: Will plan on left ureteral stent today. Definitive stone management to follow as an outpatient. Would need clearance to be off blood thinners for lithotripsy. Other option would include outpatient ureteroscopy. If all goes well he can discharge home today. Will arrange outpatient urologic follow-up. (2) Hydronephrosis, left: Code(s): N13.30 - Unspecified hydronephrosis Status: Acute Assessment and Plan: Secondary to ureteral stone Urology Consult Note HPI Date Seen: 02/15/21 Requesting Physician: Tana Morales PA-C Primary Care Provider: Aníbal Barker MD Consult Narrative Narrative: Sarwat Casillas is a 55 year old male with a prior history of stone disease. They have all passed spontaneously. He had acute onset of left-sided flank plain Monday night. It resolved. He then had recurrent pain early this morning. He presented the emergency room. A CT scan showed hydronephrosis due to a 8 mm mid ureteral stone. He was admitted for further workup. He is currently feeling much better, but it is very unlikely the stone is going to pass spontaneously. We going to temporize things with the ureteral stent with definitive stone management to follow. Currently denies any chills, blood in the urine, dysuria. He is on dual anti-platelet therapy. If planning on a lithotripsy will need clearance to be off the blood thinners. Other options would be ureteroscopy for definitive stone management. Review of Systems Review of Systems: All systems reviewed & are unremarkable except as noted in HPI and below PMFSH Past Medical History Medical History Old [place] (myocardial infarction) JESSIKA (obstructive sleep apnea) Uses a dental apparatus. Overweight Pre-diabetes Type 2 diabetes mellitus without complications Last A1c 7.0. Surgical History Surgical History No history of previous surgery Status post primary angioplasty with coronary stent Family History Family History Mother Diabetes mellitus Hyperlipidemia Hypertension Family history of arthritis Sibling Acute myocardial infarction Cerebrovascular accident ALS (amyotrophic lateral sclerosis) Schizo affective schizophrenia Sibling Hyperlipidemia Social History Social History Social History: And she is the durable power commercial attorney for healthcare. The patient is a full code. The patient has 1 son who is 26 and lives with him. 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 The patient is a former smoker. He quit about 16 and half years ago. Drinks maybe 2 standard drinks per week. No marijuana or illicit drugs. Smoking packs per day: 1 Smoking cigarettes per day: 20.0 Years smoked: 20 Smoking pack-years: 20.00 Smoking status: Former smoker Second hand tobacco smoke exposure: Yes Alcohol intake: current Drinks per week: 1 Substance use: never Substance use type: does not use Gender identity (if verbalized by the patient): Male Spiritual care concerns: No Meds Home Medications and Allergies Home Medications Medication Instructions Recorded Confirmed Type nitroglycerin [Nitrostat] 0.4 mg SUBLINGUAL Q5MIN PRN #30 06/18/20 02/15/21 Rx tablet docusate sodium 100 mg PO DAILY PRN 07/24/20 02/15/21 History melatonin 5 mg PO DAILY 07/24/20 02/15/21 History metoprolol tartrate 12.5 mg PO BID 07/24/20 02/15/21 History rosuvastatin 10 mg tablet 10 mg PO QPM #90 tablet 07/31/20 02/15/21 Rx aspirin 81 mg chewable tablet 81 mg PO DAILY@0800 #90 tablet 01/06/21 02/15/21 Rx eszopiclone 2 mg tablet 2 mg PO QPM #90 tabl
--- NOTE | 2021-02-15 09:37 | WPDHPUPDATE1 ---
History and Physical Update Update Date/Time: 02/15/21 09:37 History and Physical has been reviewed, including an updated exam of the patient. There are NO changes in the patient's condition. Risks, benefits, and alternatives have been discussed and questions answered. Patient agrees to proceed with procedure.
--- NOTE | 2021-02-15 09:50 | WPDANESEPPF ---
Anes - Initial Pre Proc Eval Procedure: Operation Date: 02/15/21 10:00 Proposed Procedures p Cysto, RPG, Stone Ext, Stent Placement(Left) - Watson Tinajero MD Date/Time: 02/15/21 09:50 Surgeon: Tana Morales PA-C Pre Op Diagnosis: Left Kidney Stone, Left Hydronephrosis Patient Data Age: 55 Gender: M Height: 1.8 m Weight: 91.5 kg Last Vital Signs Temp 36.1 C L 02/15/21 06:00 Pulse 60 02/15/21 06:00 Resp 20 02/15/21 06:00 BP 123/78 02/15/21 06:00 Pulse Ox 99 02/15/21 06:00 Allergies Allergy/AdvReac Type Severity Reaction Status Date / Time No Known Allergies Allergy Unknown Verified 02/15/21 04:01 Home Medications Medication Instructions Recorded Confirmed Type nitroglycerin [Nitrostat] 0.4 mg SUBLINGUAL Q5MIN PRN #30 06/18/20 02/15/21 Rx tablet docusate sodium 100 mg PO DAILY PRN 07/24/20 02/15/21 History melatonin 5 mg PO DAILY 07/24/20 02/15/21 History metoprolol tartrate 12.5 mg PO BID 07/24/20 02/15/21 History rosuvastatin 10 mg tablet 10 mg PO QPM #90 tablet 07/31/20 02/15/21 Rx aspirin 81 mg chewable tablet 81 mg PO DAILY@0800 #90 tablet 01/06/21 02/15/21 Rx eszopiclone 2 mg tablet 2 mg PO QPM #90 tablet 01/11/21 02/15/21 Rx Rybelsus 3 mg PO 4XW 02/15/21 02/15/21 History ticagrelor [Brilinta] 90 mg PO BID 02/15/21 02/15/21 History Laboratory Tests 02/15/21 02/15/21 02/15/21 00:51 00:52 00:52 WBC 12.5 K/mm3 H K/mm3 (4.5-10.0) RBC 5.70 M/mm3 M/mm3 (4.6-6.20) Hgb 18.3 g/dL H g/dL (14.0-18.0) Hct 51.8 % % (42.0-52.0) MCV 90.9 fl fl (80-100) MCH 32.1 pg pg (26-34) MCHC 35.3 g/dl g/dl (32-36) RDW 12.2 % % (11.5-14.5) Plt Count 233 k/mm3 k/mm3 (150-375) MPV 10.1 fl fl (7.4-10.4) Immature Gran % (Auto) 0.3 % % (0-0.5) Neut % (Auto) 87.3 % H % (45.5-73.1) Lymph % (Auto) 6.9 % L % (18.3-44.2) [place] % (Auto) 4.7 % % (2.6-8.5) Eos % (Auto) 0.3 % % (0-4.4) Baso % (Auto) 0.5 % % (0.2-1.2) Lymph # (Auto) 0.86 K/mm3 L K/mm3 (0.9-3.2) [place] # (Auto) 0.6 K/mm3 K/mm3 (0.1-0.6) Eos # (Auto) 0.0 K/mm3 K/mm3 (0-0.3) Baso # (Auto) 0.1 K/mm3 K/mm3 (0.0-0.1) Abs Immat Gran (auto) 0.04 K/mm3 H K/mm3 (0.00-0.031) Absolute Neuts (auto) 10.9 K/mm3 H K/mm3 (1.3-6.7) Absolute Nucleated RBC 0.0 K/mm3 K/mm3 (0.0-0.012) Nucleated RBC % 0.0 % % (0.0-0.2) PT INR APTT Sodium Potassium Chloride Carbon Dioxide Anion Gap BUN Creatinine Estim Creat Clear Calc Estimated GFR Glucose POC Capillary Glucose Hemoglobin A1c 6.7 % H % (<5.7) Calcium Total Bilirubin AST ALT Alkaline Phosphatase Total Protein Albumin Lipase Urine Color Yellow (Yellow) Urine Appearance Clear (Clear) Urine pH 5.0 (5.0-9.0) Ur Specific [place] 1.024 (1.001-1.035) Urine Protein 1+ mg/dL H mg/dL (Negative) Urine Glucose (UA) 3+ mg/dL H mg/dL (Negative) Urine Ketones 1+ mg/dL H mg/dL (Negative) Ur Blood (Man) 3+ H (Negative) Urine Nitrate Negative (Negative) Urine Bilirubin Negative (Negative) Urine Urobilinogen Negative mg/dL mg/dL (<2.0) Leukocyte Esterase Rfl Negative LA/UL LA/UL (Negative) Urine RBC >75 /hpf H /hpf (0-2) Urine WBC 7-9 /hpf H /hpf Urine Mucus Rare /lpf /lpf 02/15/21 02/15/21 02/15/21 01:39 01:39 08:29 WBC RBC Hgb Hct
[2021-02-15] MEDS: LACTATED RINGERS 1,000 ML 30 ML IV CONT (10:00)
[2021-02-15] MEDS: ceFAZolin 2 GM/D5W 50 ML 2 GM/50 ML BAG IVPB (10:30)
[2021-02-15] MEDS: LIDOCAINE HCL 2% GEL UROJET 10 ML PKG MUCOUS MEM (10:39)
--- NOTE | 2021-02-15 10:56 | W.PM.PROC2 ---
Procedure Note - Detailed Date of Procedure 02/15/21 Pre-op Diagnosis Left ureteral Stone, Left Hydronephrosis Post-op Diagnosis same Procedure Performed Cystoscopy, left retrograde pyelogram, left ureteral stent placement Surgeon Watson Tinajero MD Anesthesia MAC Indications At 8-9 mm left mid ureteral stone. Findings Successful stent placed. Stone visible on registered nurse surgical services radiograph Description of Procedure He was correctly identified. Informed consent obtained. From the operating room. Given MAC anesthesia. He was prepped draped sterile fashion. Given appropriate perioperative antibiotics. A time-out performed. Cystoscopy revealed an enlarged prostate. He had moderate trabeculation. He had a large diverticulum on the right. [employer] should films showed the the mid ureteral stone. I did a gentle retrograde pyelogram delineating ureteral and renal anatomy. There was hydronephrosis. I placed a guidewire to the kidney. I then placed a 4.8 variable length stent. Proximal coil in the renal pelvis. Distal coil in the bladder. The bladder was drained. He was awakened and transferred to the PACU in stable condition Implants Ureteral stent Estimated Blood Loss 1 Drains No Packing No Pathology none sent Complications No immediate complications Condition stable Disposition PACU
[2021-02-15 11:14] LABS: Glucose Point of Care 125 mg/dl (65-105)
--- NOTE | 2021-02-15 12:43 | PC.NURSE ---
Patient returned from OR per bed.
--- NOTE | 2021-02-15 13:03 | PM.SD2 ---
Same Day Admit/Disch: HPI History of Present Illness Chief complaint: Left Kidney Stone, Left Hydronephrosis Narrative: Date of admission: 02/15/2021 Date of discharge: 02/15/2021 Sarwat Casillas is a 55 year old male with a history coronary artery disease with LA in June 2020 s/p RCA stent, obstructive sleep apnea, type 2 diabetes mellitus, hyperlipidemia who presented to the emergency department on 02/15/2021 with complaints of abdominal and back pain. His pain started on Monday night (02/12) around 9:00 p.m. He had left lower quadrant pain that radiated to the back. He thought this was a stomach ache from the shrimp he ate. His pain resolved entirely around midnight. The following day he was in his usual state of health and was completely asymptomatic. Monday morning he got up and went for a 3.5 mi walk and mowed the lawn and was feeling fine. Around 8:30 p.m. he developed the same left lower quadrant pain that radiated to the back and and never subsided, therefore he proceeded to seek emergency care. He never had nausea and vomiting. He reported a low-grade fever around 99.5?. Denied dysuria or hematuria. Of note, he reports about 2 weeks ago he called his primary care provider due to concerns of dark urine. He had a UA done and was told it appeared as though he had ?the start of a kidney stone?. He reports 1 kidney stone in the past that passed without intervention. On presentation to the emergency department, his vital signs are stable, he was afebrile, WBC 12.5, BUN 29, creatinine 1.0, additional CBC and BMP unremarkable, urine with 3+ blood, and CT abdomen/pelvis showed 8 mm stone in the proximal mid left ureter and moderate left hydronephrosis and perinephric and periureteral stranding. He was admitted to the hospitalist service for observation and was seen in consultation by Urology. He underwent cystoscopy with left retrograde pyelogram and left ureteral stent placement on 02/15/[address] Tinajero. He tolerated the procedure well and his pain was resolved entirely. He was prescribed oxybutynin, feedings appearing, and short course of analgesics per Dr. Tinajero. Given the patient's overall improvement, he was determined to no longer require inpatient care and was felt to be stable for discharge. Consulting specialist in agreement. Patient felt comfortable with plans for discharge. He will follow-up with Dr. Tinajero as an outpatient and will need definitive stone management down the line. He will need to follow-up with his PCP and urologist to determine timing of possible procedure as he would need to come off his Brilinta and aspirin prior to procedure. He was informed of need for follow-up. All of his questions were answered. We discussed worrisome signs and symptoms for which to return and he was educated on his medications. He was discharged in hemodynamically stable condition on 02/15/2021. Patient admitted for observation. Supervising physician for this history and physical is Dr. Junie Govea. [facility] Past Medical History Medical History (Updated 02/15/21 @ 13:16 by Tana Morales PA-C) Coronary artery disease Old [place] (myocardial infarction) JESSIKA (obstructive sleep apnea) Uses a dental apparatus. Overweight Type 2 diabetes mellitus without complications Last A1c 7.0. Surgical History Surgical History (Updated 02/15/21 @ 13:16 by Tana Morales PA-C) Status post primary angioplasty with coronary stent Family History Family History Mother Diabetes mellitus Hyperlipidemia Hypertension Family history of arthritis Sibling Acute myocardial infarction Cerebrovascular accident ALS (amyotrophic lateral sclerosis) Schizo affective schizophrenia Sibling Hyperlipidemia Social History Social History (Updated 02/15/21 @ 13:19 by Tana Morales PA-C) Social History: Mr. Casillas lives at home with his and son. He works full-ti
== END 2021-02-15 15:02 | disposition home or self-care (01) ==
LOC: ANHED 03:43 → ANH2MED 04:38
PROVIDERS: Urology; Admitting Provider Internal Medicine; Emergency Provider Emergency Medicine; PCP Family Medicine; Visit Provider Physician Assistant
PROC: (CPT 52352; principal; 2021-02-15 10:00)
DX: N20.1 Calculus of ureter (principal); N13.30 Unspecified hydronephrosis; I25.2 Old myocardial infarction; G47.33 Obstructive sleep apnea (adult) (pediatric); E11.9 Type 2 diabetes mellitus without complications; Z87.891 Personal history of nicotine dependence; Z79.02 Long term (current) use of antithrombotics/antiplatelets; E78.5 Hyperlipidemia, unspecified; Z79.899 Other long term (current) drug therapy
CPT/HCPCS: 52332; 36415; 74018; 74176; 74420; 80053; 81001; 82948; 83036; 83690; 85025; 85610; 85730; 87086; 96365; 99285; A9270; C1769; C2617; G0378; J0131; J0690; J2704; J3010; J7030; J7120; Q9966

== ENCOUNTER 2021-03-02 11:25 | Outpatient (CLI) | payer OTHER, SELFPAY | END 2021-03-02 11:26 | disposition home or self-care (01) | LOC: ANHSURGERY 11:28 | PROVIDERS: PCP Family Medicine; Visit Provider Urology | DX: N20.1 Calculus of ureter (principal); Z01.818 Encounter for other preprocedural examination | CPT/HCPCS: 87086 ==

== ENCOUNTER → 2021-03-05 04:51 | Outpatient (CLI) | payer OTHER, SELFPAY ==
[2021-03-05 18:26] LABS: SARS-CoV-2 RNA PCR Negative
== END ==
PROVIDERS: PCP Family Medicine; Visit Provider Urology
DX: Z01.812 Encounter for preprocedural laboratory examination (principal); Z20.822 Contact with and (suspected) exposure to COVID-19
CPT/HCPCS: C9803; U0003; U0005

== ENCOUNTER 2021-03-08 00:37 | Day surgery (SDC) | payer OTHER, SELFPAY ==
[2021-03-01 10:19] VITALS: BMI 26.4
--- NOTE | 2021-03-05 16:06 | P.HP_ITS ---
H&P: HPI History of Present Illness Date/Time: 03/05/21 16:06 55-year-old male with a left ureteral stone. Stent is in place Chief Complaint: Ureteral stone Review of Systems Review of Systems: All systems reviewed & are unremarkable except as noted in HPI and below PMFSH Past Medical History Medical History Coronary artery disease Old [place] (myocardial infarction) JESSIKA (obstructive sleep apnea) Uses a dental apparatus. Overweight Type 2 diabetes mellitus without complications Last A1c 7.0. Surgical History Surgical History Status post primary angioplasty with coronary stent Family History Family History Mother Diabetes mellitus Hyperlipidemia Hypertension Family history of arthritis Sibling Acute myocardial infarction Cerebrovascular accident ALS (amyotrophic lateral sclerosis) Schizo affective schizophrenia Sibling Hyperlipidemia Social History Social History Social History: Mr. Casillas lives at home with his and son. 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 His primary care provider is Dr. Aníbal Barker. He designates his , Ana, as his surrogate decision maker and would like to be a full code. Smoking packs per day: 1 Smoking cigarettes per day: 20.0 Years smoked: 20 Smoking pack-years: 20.00 Smoking status: Former smoker Tobacco type: cigarettes Second hand tobacco smoke exposure: Yes Smoking end date: 06/12/03 Alcohol intake: current Alcohol use details: RARE Substance use: never Substance use type: does not use Gender identity (if verbalized by the patient): Male Spiritual care concerns: No Meds Home Medications and Allergies Home Medications Medication Instructions Recorded Confirmed Type melatonin 5 mg PO HS 07/24/20 03/01/21 History metoprolol tartrate 12.5 mg PO BID 07/24/20 03/01/21 History aspirin 81 mg chewable tablet 81 mg PO DAILY@0800 #90 tablet 01/06/21 03/01/21 Rx Brilinta 90 mg PO BID 02/15/21 03/01/21 History Rybelsus 3 mg PO 4XW 02/15/21 03/01/21 History eszopiclone [Lunesta] 2 mg PO HS 03/01/21 03/01/21 History oxybutynin chloride 5 mg PO BID 03/01/21 03/01/21 History rosuvastatin [Crestor] 10 mg PO HS 03/01/21 03/01/21 History Allergies Allergy/AdvReac Type Severity Reaction Status Date / Time No Known Allergies Allergy Unknown Verified 03/01/21 10:14 Exam Const: General: cooperative and healthy appearing HENMT: Head: normal to inspection General nose exam: Normal external nose present Eyes: General: appearance normal, both eyes and all related structures Neck: Neck: normal visual inspection GI: Inspection: normal to inspection Skin: General skin exam: normal color Assessment and Plan Assessment and plan (1) Left ureteral stone: Code(s): N20.1 - Calculus of ureter Status: Acute Assessment and Plan: left ureteroscopy, holmium laser lithotripsy, stone extraction, stent exchange.
[2021-03-08] VITALS (7 sets, daily range): BP systolic 122–138; BP diastolic 76–87; PULSE 56–68; RESP 12–20; TEMP 36.3–36.6; O2SAT 95–98
--- NOTE | ~2021-03-08 | XR_ITS ---
EXAMINATION: XR retrograde pyelo w/stent LT EXAM DATE: 03/08/2021 14:11 INDICATION: Left-sided retrograde, stent placement. TECHNIQUE: Fluoroscopy used during XR retrograde pyelo w/stent LT performed by Dr. Watson Tinajero MD, urologist. The radiologist Kelvin Santiago M.D. dictating this report of the image(s) available wa s not present for the procedure. Total fluoroscopic time of 50 seconds. The DAP for this procedure was 640 radcm2. A total of 8 images sent to PACS from the exam. FINDINGS: Left ureter was cannulated and injected. There is mild left hydroureteronephrosis. A doubl e-J ureteral stent was placed. Correlate with procedure note. IMPRESSION: Mild left hydronephrosis. Stent in position. Reviewed, dictated and finalized at location A.
--- NOTE | 2021-03-08 07:21 | WPDHPUPDATE1 ---
History and Physical Update Update Date/Time: 03/08/21 07:21 History and Physical has been reviewed, including an updated exam of the patient. There are NO changes in the patient's condition. Risks, benefits, and alternatives have been discussed and questions answered. Patient agrees to proceed with procedure.
[2021-03-08 12:15] LABS: Glucose Point of Care 128 mg/dl (65-105)
[2021-03-08] MEDS: LACTATED RINGERS 1,000 ML 30 ML IV CONT ×2 (12:21→14:14)
--- NOTE | 2021-03-08 13:03 | WPDANESEPPF ---
Anes - Initial Pre Proc Eval Procedure: Operation Date: 03/08/21 13:30 Proposed Procedures p Cystoscopy, Left Ureteroscopy, Left Retrograde Pyelogram, Left Stent Placement - Watson Tinajero MD Date/Time: 03/08/21 13:03 Surgeon: Watson Tinajero MD Pre Op Diagnosis: Left Ureteral Stone Patient Data Age: 55 Gender: M Height: 1.8 m Weight: 87.9 kg Last Vital Signs Temp 36.6 C 03/08/21 11:46 Pulse 68 03/08/21 11:46 Resp 16 03/08/21 11:46 BP 122/87 03/08/21 11:46 Pulse Ox 98 03/08/21 11:46 Allergies Allergy/AdvReac Type Severity Reaction Status Date / Time No Known Allergies Allergy Unknown Verified 03/08/21 12:08 Home Medications Medication Instructions Recorded Confirmed Type melatonin 5 mg PO HS 07/24/20 03/08/21 History metoprolol tartrate 12.5 mg PO BID 07/24/20 03/08/21 History aspirin 81 mg chewable tablet 81 mg PO DAILY@0800 #90 tablet 01/06/21 03/08/21 Rx Brilinta 90 mg PO BID 02/15/21 03/08/21 History Rybelsus 3 mg PO 4XW 02/15/21 03/08/21 History eszopiclone [Lunesta] 2 mg PO HS 03/01/21 03/08/21 History oxybutynin chloride 5 mg PO BID 03/01/21 03/08/21 History rosuvastatin [Crestor] 10 mg PO HS 03/01/21 03/08/21 History Laboratory Tests 03/08/21 12:07 POC Capillary Glucose 128 mg/dl H mg/dl (65-105) Patient hx anesthesia problems: none Family hx anesthesia problems: none Results Review: All pre-operative results and documents have been reviewed as part of the pre-operative evaluation. [facility] Past Medical History Medical History Coronary artery disease Old [place] (myocardial infarction) JESSIKA (obstructive sleep apnea) Uses a dental apparatus. Overweight Type 2 diabetes mellitus without complications Last A1c 7.0. Surgical History Surgical History Status post primary angioplasty with coronary stent Family History Family History Mother Diabetes mellitus Hyperlipidemia Hypertension Family history of arthritis Sibling Acute myocardial infarction Cerebrovascular accident ALS (amyotrophic lateral sclerosis) Schizo affective schizophrenia Sibling Hyperlipidemia Social History Social History Social History: Mr. Casillas lives at home with his and son. 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 His primary care provider is Dr. Aníbal Barker. He designates his , Ana, as his surrogate decision maker and would like to be a full code. Smoking packs per day: 1 Smoking cigarettes per day: 20.0 Years smoked: 20 Smoking pack-years: 20.00 Smoking status: Former smoker Tobacco type: cigarettes Second hand tobacco smoke exposure: Yes Smoking end date: 06/12/03 Alcohol intake: current Alcohol use details: RARE Substance use: never Substance use type: does not use Living arrangements: with family Gender identity (if verbalized by the patient): Male Spiritual care concerns: No Anes - Eval Final PreProcedure Day of Procedure 03/08/21 13:03 Patient weight: overweight Heart: regular rate and rhythm Lungs: clear to auscultation Airway: Mallampati scale class III Neurological: alert and oriented Last oral intake: >/= 8 hours ASA classification: III Emergent: no Anesthetic plan: proceed Anesthesia type and monitoring: general LMA and standard monitoring Results Review: All pre-operative results and documents have been reviewed as part of the pre-operative evaluation. Informed Consent: The patient's anesthetic plan and its attendant risks and benefits were discussed with the patient/family/POA. Questions were solicited and answers provided to the satisfaction of the patient/family/POA.
--- NOTE | 2021-03-08 13:16 | WPDHPUPDATE1 ---
History and Physical Update Update Date/Time: 03/08/21 13:16 History and Physical has been reviewed, including an updated exam of the patient. There are NO changes in the patient's condition. Risks, benefits, and alternatives have been discussed and questions answered. Patient agrees to proceed with procedure. Cystoscopy, left retrograde pyelogram, left ureteroscopy, holmium laser lithotripsy, basket stone extraction, possible stent placement.
[2021-03-08] MEDS: ceFAZolin 2 GM/D5W 50 ML 2 GM/50 ML BAG IVPB (13:25)
[2021-03-08] MEDS: KETOROLAC 30 MG/ML VIAL (*BKC) IV PUSH (14:05)
[2021-03-08] MEDS: LIDOCAINE HCL 2% GEL UROJET 10 ML PKG MUCOUS MEM (14:06)
[2021-03-08 14:31] LABS: Glucose Point of Care 113 mg/dl (65-105)
--- NOTE | 2021-03-08 14:43 | W.PM.PROC2 ---
Procedure Note - Detailed Date of Procedure 03/08/21 Pre-op Diagnosis Left Ureteral Stone Post-op Diagnosis same Procedure Performed Cystoscopy, left retrograde pyelogram, left ureteroscopy, holmium laser lithotripsy, basket stone extraction, stent Surgeon Watson Tinajero MD Anesthesia general Indications This is a gentleman with a left ureteral stone. A stent is in place. He is here for definitive stone management. He is on blood thinners. We have opted for ureteroscopy Findings Left ureteral stone completely removed Description of Procedure He was correctly identified. Informed consent obtained. From the operating room. He was given general anesthesia. He was prepped and draped in a sterile fashion. He was in the dorsal thigh position. Time-out performed. Examination of his bladder was normal other than the stent. It was brought out through the meatus. I placed a guidewire next to the stent as I was unable to place a guidewire through the stent. I then removed the stent once the guidewires in the kidney. I then performed rigid ureteroscopy. The stone was encountered. I used the holmium laser to completely fragment the stone. I extracted all fragments. I re-examined the ureter and there is no other fragments. I did retrograde pyelogram to outline ureteral anatomy. There is no sign of any extravasation. I placed a 4.8 variable length stent. Proximal coil was in the lower pole kidney. Distal coil in the bladder. He was awakened transferred to PACU in stable condition. Estimated Blood Loss 3 Drains No Packing No Pathology yes (Stone) Complications No immediate complications Condition stable Disposition PACU
== END 2021-03-08 15:30 | disposition home or self-care (01) ==
PROVIDERS: PCP Family Medicine; Visit Provider Urology
PROC: (CPT 52352; principal; 2021-03-08 13:30)
DX: N13.2 Hydronephrosis with renal and ureteral calculous obstruction (principal); Z79.82 Long term (current) use of aspirin; I25.10 Atherosclerotic heart disease of native coronary artery without angina pectoris; I25.2 Old myocardial infarction; G47.33 Obstructive sleep apnea (adult) (pediatric); E11.9 Type 2 diabetes mellitus without complications; Z87.891 Personal history of nicotine dependence
CPT/HCPCS: 52356; 74420; 82365; 82948; 87086; 88300; A9270; C1769; C2617; C9803; J0690; J1100; J1885; J2250; J2405; J2704; J3010; J7120; Q9966; U0003; U0005

== ENCOUNTER → 2021-09-17 13:49 | Outpatient (CLI) | payer OTHER, SELFPAY ==
--- NOTE | ~2021-09-17 | US_ITS ---
EXAMINATION: US retroperitoneal comp DATE: 09/17/2021 14:10 INDICATION: Nephrolithiasis presenting with left flank pain TECHNIQUE: Multiple ultrasound grayscale images of the kidneys were obtained. COMPARISON: None. FINDINGS: The right kidney measures 10.4 x 5.5 x 5.2 cm. The left kidney measures 11.6 x 6.1 x 5.6 cm. The kidn eys demonstrate normal echogenicity. Similar anechoic cyst at the lower pole of the right kidney. The re is no hydronephrosis in either kidney. No stones identified. The bladder is normal. IMPRESSION: 1. 1 cm right renal cyst. Otherwise normal kidneys without hydronephrosis. Reviewed, dictated and finalized at location B.
== END ==
PROVIDERS: PCP Family Medicine; Visit Provider Urology
DX: Z87.442 Personal history of urinary calculi (principal); N28.1 Cyst of kidney, acquired
CPT/HCPCS: 76770

== ENCOUNTER 2021-11-01 10:47 | Outpatient (CLI) | payer OTHER, SELFPAY ==
--- NOTE | ~2021-11-01 | US_ITS ---
EXAMINATION: US scrotum doppler DATE: 11/01/2021 11:46 INDICATION: Other specific disorder of male genital. TECHNIQUE: Testicular sonogram utilizing grayscale and Doppler COMPARISON: None. FINDINGS: The right testis measures 4.6 x 3.5 x 3.2 cm. The left testis measures 4.6 x 3.0 x 3.3 cm. Symmetric normal grayscale appearance to both testes. There is normal vascular flow to both testes. The left ep ididymis is normal with normal vascular flow. Multiple anechoic right epididymal cysts, the largest m easuring up to 1.6 cm in maximal diameter. Small bilateral hydroceles. No varicocele.. There is no va ricocele or hydrocele. IMPRESSION: 1. Small bilateral hydroceles and multiple cysts at the right epididymis. 2. Normal bilateral testes. Reviewed, dictated and finalized at location B.
== END 2021-11-01 10:48 | disposition home or self-care (01) ==
PROVIDERS: PCP Family Medicine; Visit Provider Physician Assistant
DX: N43.3 Hydrocele, unspecified (principal); I86.1 Scrotal varices
CPT/HCPCS: 76870; 93976

== ENCOUNTER 2023-06-09 13:06 | Emergency (ER) | payer OTHER, SELFPAY ==
[2023-06-09 13:26] VITALS: BP 109/84; PULSE 94; RESP 16; TEMP 36.4; O2SAT 98
--- NOTE | 2023-06-09 14:06 | ED.EAR ---
HPI - Ear Problem General Chief complaint: Ear Stated complaint: Ear Infection Time Seen by Provider: 06/09/23 14:06 Source: patient, RN notes reviewed and old records reviewed Mode of arrival: ambulatory Limitations: no limitations History of Present Illness HPI Narrative: 57-year-old male presents to the [facility] with concerns for an ear infection. States he has excessive wax. Has been trying to remove it with using his finger. Thinks he may have scratched it. Treatment prior to arrival: none Related Data Home Medications Medication Instructions Recorded Confirmed rosuvastatin 10 mg tablet (Crestor) 10 mg PO HS 03/01/21 06/09/23 empagliflozin 10 mg tablet 10 mg PO DAILY 08/19/22 06/09/23 (Jardiance) Allergies Allergy/AdvReac Type Severity Reaction Status Date / Time No Known Allergies Allergy Unknown Verified 06/09/23 13:30 Review of Systems Review of Systems: All systems reviewed & are unremarkable except as noted in HPI and below Constitutional: Constitutional: Reports no additional constitutional complaints Eyes: Eyes: Reports no additional eye complaints ENT: Reports as per HPI Cardiovascular: Cardiovascular: Reports no additional cardiovascular complaints, Denies chest pain and Denies dyspnea Respiratory: Respiratory: Reports no additional respiratory complaints, Denies chest congestion, Denies cough and Denies dyspnea Gastrointestinal: Gastrointestinal: Reports no additional gastrointestinal complaints, Denies abdominal pain, Denies nausea and Denies vomiting Musculoskeletal: Musculoskeletal: Reports no additional musculoskeletal complaints Integumentary/Breasts: Skin/Breast: Reports system reviewed and no additional complaints, except as docu Neurologic: Reports system reviewed and no additional complaints, except as documented Psychiatric: Psychiatric: Reports no additional psychiatric complaints Allergic/Immunologic: Allergic/Immunologic: Reports no additional allergic/immunologic complaints PMFSH Past Medical History Medical History Coronary artery disease [place] (myocardial infarction) JESSIKA (obstructive sleep apnea) Uses a dental apparatus. Overweight Psoriasis Type 2 diabetes mellitus without complications Surgical History Surgical History Status post primary angioplasty with coronary stent Family History Family History Mother Diabetes mellitus Hyperlipidemia Hypertension Family history of arthritis Sibling Acute myocardial infarction Cerebrovascular accident ALS (amyotrophic lateral sclerosis) Schizo affective schizophrenia Sibling Hyperlipidemia Social History Social History Social History: Mr. Casillas lives at home with his and son. 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 His primary care provider is Dr. Aníbal Barker. He designates his , Ana, as his surrogate decision maker and would like to be a full code. Smoking packs per day: 1 Smoking cigarettes per day: 20.0 Years smoked: 20 Smoking pack-years: 20.00 Smoking status: Former smoker Tobacco type: cigarettes Second hand tobacco smoke exposure: Yes Smoking end date: 06/12/03 Alcohol intake: current Alcohol use details: RARE Substance use: never Substance use type: does not use Living arrangements: with family Occupation/Education: occupation Gender identity (if verbalized by the patient): Male Spiritual care concerns: No Comments At the time of my signature, I reviewed and agree with the nursing past medical, surgical, social, and family history. There is no relevant family history pertinent to the patient complaint. Exam Const: General: cooperative, healthy appearing, comfortable, no acute distress, well develo
== END 2023-06-09 14:20 | disposition home or self-care (01) ==
PROVIDERS: Emergency Provider Nurse Practitioner; PCP Family Medicine
DX: S00.412A Abrasion of left ear, initial encounter (principal); X58.XXXA Exposure to other specified factors, initial encounter; H61.22 Impacted cerumen, left ear; Z87.891 Personal history of nicotine dependence; I25.10 Atherosclerotic heart disease of native coronary artery without angina pectoris; I25.2 Old myocardial infarction; E11.9 Type 2 diabetes mellitus without complications; Z95.5 Presence of coronary angioplasty implant and graft
CPT/HCPCS: 69210; 99213; G0463

== ENCOUNTER 2023-10-27 07:40 | Outpatient (CLI) | payer OTHER, SELFPAY ==
[2023-10-27 08:01] LABS: Appearance Urine Cloudy (Clear); Bacteria Urine Rare /hpf; Bilirubin Urine Negative (Negative); Blood Urine 3+ (Negative); Color Urine Yellow (Yellow); Glucose Urine UA 3+ mg/dL (Negative); Ketones Urine Negative (Negative); Leukocyte Esterase Ur 2+ LEU/UL (Negative); Nitrate Urine Negative (Negative); Non Pathogenic Casts 0-2; Protein Urine Negative (Negative); RBC Urine 21-50 /hpf (0-2); Specific Grav Ur 1.018 (1.001-1.035); Squamous Epithelial Cell Urine None Seen /hpf (Few); Urobilinogen Urine 0.2 mg/dL (<2.0); WBC Urine >100 /hpf (0-3)
[2023-10-27 09:45] LABS: Add Urine Microscopic? YES
== END 2023-10-27 07:41 | disposition home or self-care (01) ==
LOC: ANHLAB 07:41
PROVIDERS: PCP Family Medicine; Visit Provider Family Medicine
DX: R31.9 Hematuria, unspecified (principal); N39.0 Urinary tract infection, site not specified; R35.89 Other polyuria
CPT/HCPCS: 81001; 87077; 87086; 87088; 87181

== ENCOUNTER 2023-11-10 14:30 | Outpatient (CLI) | payer OTHER, SELFPAY ==
[2023-11-10 15:29] LABS: Appearance Urine Cloudy (Clear); Bacteria Urine None Seen /hpf; Bilirubin Urine Negative (Negative); Blood Urine 2+ (Negative); Color Urine Yellow (Yellow); Glucose Urine UA 3+ mg/dL (Negative); Ketones Urine Trace mg/dL (Negative); Leukocyte Esterase Ur 2+ LEU/UL (Negative); Nitrate Urine Negative (Negative); Non Pathogenic Casts 0-2; Protein Urine 1+ mg/dL (Negative); RBC Urine 51-100 /hpf (0-2); Squamous Epithelial Cell Urine None Seen /hpf (Few); Urobilinogen Urine 0.2 mg/dL (<2.0); WBC Urine >100 /hpf (0-3)
[2023-11-10 15:30] LABS: Add Urine Microscopic? YES
== END 2023-11-10 14:31 | disposition home or self-care (01) ==
LOC: ANHLAB 14:31
PROVIDERS: PCP Family Medicine; Visit Provider Physician Assistant
DX: N39.0 Urinary tract infection, site not specified (principal)
CPT/HCPCS: 81001; 87077; 87086; 87088; 87181

== ENCOUNTER 2024-01-10 10:52 | Emergency (ER) | payer OTHER, SELFPAY ==
--- NOTE | 2024-01-10 10:53 | ED.SKABFB ---
HPI - Skin/Abscess/Foreign Bdy General Chief complaint: Eye Problems Stated complaint: WASP STING Time Seen by Provider: 01/10/24 10:52 Source: patient Mode of arrival: ambulatory Limitations: no limitations History of Present Illness HPI narrative: Sarwat is a 4-year-old male patient presenting to the clinic today with complaints of a wasp sting that occurred yesterday to the left lower eye orbit. He woke up this morning with his eye swollen shut. Had taken some Benadryl and applied ice and was able to open his eye afterwards. Swelling is now going down his face and into his neck. He reports he contacted his primary care doctor and they told him to go the ER so he came [facility] the [facility] for [facility]. He denies any visual changes or eye pain Related Data Home Medications Medication Instructions Recorded Confirmed rosuvastatin 10 mg tablet (Crestor) 10 mg PO HS 03/01/21 08/28/23 empagliflozin 10 mg tablet 10 mg PO DAILY 08/19/22 01/10/24 (Jardiance) tirzepatide 5 mg/0.5 mL 5 mg subcut WEEKLY 01/10/24 01/10/24 subcutaneous pen injector (Mounjaro) Allergies Allergy/AdvReac Type Severity Reaction Status Date / Time No Known Allergies Allergy Unknown Verified 01/10/24 10:56 Review of Systems Review of Systems: Pertinent positives per HPI. Patient denies any fever, chills, rash, headache, visual changes, dizziness, cough, runny nose, sore throat, shortness of breath, chest pain, palpitations, nausea, vomiting, diarrhea, constipation, abdominal pain, or any urinary issues. [facility] Past Medical History Medical History Coronary artery disease [place] (myocardial infarction) JESSIKA (obstructive sleep apnea) Uses a dental apparatus. Overweight Psoriasis Type 2 diabetes mellitus without complications Surgical History Surgical History Status post primary angioplasty with coronary stent Family History Family History Mother Diabetes mellitus Hyperlipidemia Hypertension Family history of arthritis Sibling Acute myocardial infarction Cerebrovascular accident ALS (amyotrophic lateral sclerosis) Schizo affective schizophrenia Sibling Hyperlipidemia Social History Social History Social History: Mr. Casillas lives at home with his and son. 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 His primary care provider is Dr. Aníbal Barker. He designates his , Ana, as his surrogate decision maker and would like to be a full code. Smoking packs per day: 1 Smoking cigarettes per day: 20.0 Years smoked: 20 Smoking pack-years: 20.00 Smoking status: Former smoker Tobacco type: cigarettes Second hand tobacco smoke exposure: Yes Smoking end date: 06/12/03 Alcohol intake: current Alcohol use details: RARE Substance use: never Substance use type: does not use Do You Feel Safe in your Home?: Yes Lack of Transportation: No Lack of Food: Never True Current Housing: I Have Housing Concerned About Future Housing: No Difficulty Paying Gas/Electric Bills: No Difficulty Paying for Meds: No Currently Unemployed: No Education: Don't Know Difficulty w/ Childcare or Family Care: No Living arrangements: with family Occupation/Education: occupation Gender identity (if verbalized by the patient): Male Sexual Orientation (if Verbalized by the Patient): Straight or Heterosexual Spiritual care concerns: No Comments At the time of my signature, I reviewed and agree with the nursing past medical, surgical, social, and family history. There is no relevant family history pertinent to the patient complaint. Exam Narrative: General: Well-developed, well nourished, in no apparent distress Head: Normocephalic, atr
[2024-01-10 10:59] VITALS: BP 113/83; PULSE 109; RESP 16; TEMP 36.9; O2SAT 98
== END 2024-01-10 11:08 | disposition home or self-care (01) ==
PROVIDERS: Emergency Provider Nurse Practitioner Family; PCP Family Medicine
DX: T63.461A Toxic effect of venom of wasps, accidental (unintentional), initial encounter (principal); Z87.891 Personal history of nicotine dependence; I25.10 Atherosclerotic heart disease of native coronary artery without angina pectoris; I25.2 Old myocardial infarction; G47.33 Obstructive sleep apnea (adult) (pediatric); E11.9 Type 2 diabetes mellitus without complications; L40.9 Psoriasis, unspecified
CPT/HCPCS: 99213; G0463

== ENCOUNTER 2024-06-03 08:02 | Emergency (ER) | payer OTHER, SELFPAY ==
--- NOTE | 2024-06-03 08:09 | ED.URI ---
HPI - URI/Sore Throat General Chief Complaint: Upper Respiratory Infection Stated Complaint: Uti Symptoms/Cold Symptoms Time Seen by Provider: 06/03/24 08:28 Source: patient and RN notes reviewed Mode of arrival: ambulatory Limitations: no limitations History of Present Illness HPI Narrative: 58-year-old male presents with concern for cough for 1 week. Reports he occasionally coughs up yellow phlegm. Reports for 2-3 days he has had urine frequency, urgency. Reports history of urinary tract infections. He denies fever, aches, chills, sweats. Denies back pain, abdominal pain. Denies shortness of breath. MD elicited complaint: cough and other (UTI symptoms) Related Data Home Medications ?Medication ?Instructions ?Recorded ?Confirmed ?Last Taken ?Type rosuvastatin 10 mg tablet (Crestor) 10 mg PO HS 03/01/21 03/12/24 Unknown History empagliflozin 10 mg tablet 10 mg PO DAILY 08/19/22 03/12/24 Unknown History (Jardiance) tirzepatide 5 mg/0.5 mL 5 mg subcut WEEKLY 01/10/24 03/12/24 Unknown History subcutaneous pen injector (Mounjaro) Allergies Allergy/AdvReac Type Severity Reaction Status Date / Time No Known Allergies Allergy Unknown Verified 06/03/24 08:14 Review of Systems Review of Systems: CONSTITUTIONAL: Denies malaise, chills, sweats, or fever. EYES: Denies visual changes, redness, or discharge. ENT: Denies rhinorrhea, congestion, sinus pain, otalgia and sore throat. CARDIOVASCULAR: Denies chest pain, palpitations, or edema. RESPIRATORY: Reports cough. Denies dyspnea. GASTROINTESTINAL: Denies abdominal pain, nausea, vomiting, diarrhea SKIN: Denies rash or itching. : Reports urine frequency and urgency MUSCULOSKELETAL: Denies myalgia. NEUROLOGIC: Denies headache. All systems reviewed & are unremarkable except as noted in HPI and below PMFSH Past Medical History Medical History Coronary artery disease [place] (myocardial infarction) JESSIKA (obstructive sleep apnea) Uses a dental apparatus. Overweight Psoriasis Type 2 diabetes mellitus without complications Surgical History Surgical History Status post primary angioplasty with coronary stent Family History Family History Mother Diabetes mellitus Hyperlipidemia Hypertension Family history of arthritis Sibling Acute myocardial infarction Cerebrovascular accident ALS (amyotrophic lateral sclerosis) Schizo affective schizophrenia Sibling Hyperlipidemia Social History Social History Social History: Mr. Casillas lives at home with his and son. 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 His primary care provider is Dr. Aníbal Barker. He designates his , Ana, as his surrogate decision maker and would like to be a full code. Smoking packs per day: 1 Smoking cigarettes per day: 20.0 Years smoked: 20 Smoking pack-years: 20.00 Smoking status: Former smoker Tobacco type: cigarettes Second hand tobacco smoke exposure: Yes Smoking end date: 06/12/03 Alcohol intake: current Alcohol use details: RARE Substance use: never Substance use type: does not use Do You Feel Safe in your Home?: Yes Lack of Transportation: No Lack of Food: Never True Current Housing: I Have Housing Concerned About Future Housing: No Difficulty Paying Gas/Electric Bills: No Difficulty Paying for Meds: No Currently Unemployed: No Education: Don't Know Difficulty w/ Childcare or Family Care: No Living arrangements: with family Occupation/Education: occupation Gender identity (if verbalized by the patient): Male Sexual Orientation (if Verbalized by the Patient): Straight or Heterosexual Spiritual care concerns: No Comments At time of signature, agree with nursing past medical, surgical, social and family history. There is no relevant family history pertinent to the presenting complaint Exam Narrative: GENERAL: Well-appearing, well-nourished, and in no acute distress. HEAD: Normocephalic EYES: PERRLA, conjunctivae clear ENT: Nares clear, turbinates edematous and erythematous, clear discharge. Mucous membranes moist. TM pearly berkowitz with dull light reflex bilaterally; no tragal tenderness. Oropharynx not erythematous without lesions. Tonsils not enlarged and without exudate, no drooling, no hoarseness, no trismus, uvula midline. NECK: Supple. No lymphadenopathy CHEST: Clear to auscultation, breath sounds equal. No wheezing, rhonchi, rales, or stridor. No respiratory distress, speaks in full sentences. Cough noted HEART: Regular rate and rhythm. No murmur heard. SKIN: Warm, dry, no rash. NEURO: Alert and oriented x3. PSYCH: Normal mood and affect Course Course Emergency Course: Patient's past to urine culture and sensitivities indicated coag neg staph resistance to ciprofloxacin, levofloxacin, Bactrim Patient is aware of diagnosis, understands and agrees to treatment plan. Anticipatory guidance given. Patient agrees to follow-up as directed and is aware of reasons to seek care at the emergency department. Portions of this record may have been created with voice recognition software Level of Care: Express Care Visit Vital Signs Vital signs: Reviewed. MDM - URI/Sore Throat MDM Narrative Medical decision making narrative: Differential diagnosis considered: Owen virus, strep pharyngitis, allergic rhinitis, upper respiratory tract infection, sinusitis, rhinosinusitis, nasopharyngitis. viral pharyngitis, otitis media, otitis externa, pneumonia, bronchitis, viral cough syndrome, viral syndrome, and influenza. Exam findings show no acute concerns or changes; patient is non-toxic appearing and is in no distress. Patient is appropriate for outpatient treatment and follow-up. Lab Data Attestation: I reviewed the patient's lab results. Critical Care Time Critical Care Time Critical Care Time: No Discharge Plan Discharge Clinical Impression: Urinary tract infection Patient Disposition: Home, Self-Care Condition: Stable Instructions: Antibiotic Form, Urinary Tract Infection in Men (ED), Acute Bronchitis (ED) Additional Instructions: We will send a urine culture to the lab; if the culture identifies an organism that the prescribed antibiotic will not treat, you will receive a phone call from an urgent care staff member and an appropriate antibiotic will be prescribed. -Your symptoms should begin to improve within a day of starting antibiotics. But you should finish all the antibiotic pills you get. Otherwise your infection might come back. -Also recommend: increase water intake. Tylenol/ibuprofen as needed for pain or fever -Follow-up with your primary care provider for urine recheck or seek ER visit if condition worsens with high fever, nausea, vomiting and severe back pain. Viral illness may last between 7-21 days; antibiotics do not cure viral illness and are NOT recommended at this time. Recommend antihistamine such as Benadryl at night time and Zyrtec or Torrie during the day Cough syrup may cause drowsiness; avoid driving or take it at night time. Also, recommend symptomatic treatment includes: rest, fluids, and increase humidity of the air at home. Recommend Acetaminophen as directed on the bottle to reduce fever, pain, headache. Avoid smoking/second-hand smoke. Please schedule a follow-up visit with your personal physician for further evaluation and treatment within 3-5days. Including recheck and discussion of your blood pressure. If your symptoms persist, change or worsen significantly before you can contact your personal physician then please, without delay, go to the emergency department for further evaluation. Patient Language: Bur[place]ian Prescriptions: New methylprednisolone [Medrol (Anastacio)] 4 mg tablets,dose pack See Rx Instructions .ROUTE .COMPLEX Qty: 21 0RF Rx Instructions: orally per package directions nitrofurantoin monohyd/m-cryst [Macrobid] 100 mg capsule 100 mg PO Q12H 5 Days Qty: 10 0RF Rx Instructions: must administer with a meal/food promethazine-DM 6.25-15 mg/5 mL syrup 5 ml PO Q4-6H PRN (Reason: cough) Qty: 120 0RF No Action Mounjaro 5 mg/0.5 mL pen injector 5 mg SUBCUT WEEKLY Jardiance 10 mg tablet 10 mg PO DAILY rosuvastatin [Crestor] 10 mg tablet 10 mg PO HS (DME) OneTouch Ultra Test Strip See Rx Instructions .Route Qty: 100 5RF Rx Instructions: As directed to test blood sugar qam aspirin [Children's Aspirin] 81 mg tablet,chewable 81 mg PO DAILY@0800 Qty: 90 3RF eszopiclone [Lunesta] 2 mg tablet 2 mg PO QHS Qty: 90 0RF Follow-up/Referrals: Aníbal Barker MD [Primary Care Provider] - Time of Disposition: 08:38
[2024-06-03 08:13] VITALS: BP 120/84; PULSE 112; RESP 16; TEMP 36.9; O2SAT 98
[2024-06-03 08:42] LABS: EDUAAPPEAR Cloudy; EDUABILI Negative (Negative); EDUABLOOD 2+ (Negative); EDUACOLOR1 Light/Pale; EDUAGLUCOSE 3+ (Negative); EDUAKETONE 2+ (Negative); EDUALEUKO 1+ (Negative); EDUANITRATE Negative (Negative); EDUAPH 5.5; EDUAPROTEIN 1+ (Negative); EDUASPGRAVITY 1.015; EDUAUROBILI 0.2
== END 2024-06-03 08:40 | disposition home or self-care (01) ==
PROVIDERS: Emergency Provider Nurse Practitioner; PCP Family Medicine
DX: N39.0 Urinary tract infection, site not specified (principal); I25.10 Atherosclerotic heart disease of native coronary artery without angina pectoris; I25.2 Old myocardial infarction; E11.9 Type 2 diabetes mellitus without complications; Z87.891 Personal history of nicotine dependence
CPT/HCPCS: 81003; 87086; 87181; 99213; G0463

== ENCOUNTER 2024-06-10 09:51 | Emergency (ER) | payer OTHER, SELFPAY ==
[2024-06-10 10:26] VITALS: BP 118/91; PULSE 93; RESP 16; TEMP 36.2; O2SAT 97
[2024-06-10 11:04] LABS: EDUAAPPEAR Clear; EDUABILI Negative (Negative); EDUABLOOD 2+ (Negative); EDUACOLOR1 Yellow; EDUAGLUCOSE 3+ (Negative); EDUAKETONE Trace (Negative); EDUALEUKO Trace (Negative); EDUANITRATE Positive (Negative); EDUAPROTEIN 1+ (Negative); EDUASPGRAVITY 1.015; EDUAUROBILI 0.2
--- NOTE | 2024-06-10 11:04 | ED_ITS ---
HPI - Male Genitourinary General Chief complaint: Urogenital-Male Stated complaint: Uti Symptoms Time Seen by Provider: 06/10/24 10:54 Source: patient, RN notes reviewed and old records reviewed (Previous urine cultures) Mode of arrival: ambulatory Limitations: no limitations History of Present Illness HPI Narrative: Patient presents today complaining of urinary frequency, cloudiness, and hesitancy since yesterday. Patient was seen at [facility] last week and placed on Macrobid for UTI. Review of urine cultures shows previous 3 cultures positive for coag-negative staph, not staff saphrophyticus. Patient has some resistance as well. States symptoms somewhat improved, then worsened again last night. States he is leaving for vacation at the end of week and wanted to make sure he did not developed a worsening UTI again. Related Data Home Medications ?Medication ?Instructions ?Recorded ?Confirmed ?Last Taken ?Type rosuvastatin 10 mg tablet (Crestor) 10 mg PO HS 03/01/21 06/10/24 Unknown History empagliflozin 10 mg tablet 10 mg PO DAILY 08/19/22 06/10/24 Unknown History (Jardiance) tirzepatide 5 mg/0.5 mL 5 mg subcut WEEKLY 01/10/24 06/10/24 Unknown History subcutaneous pen injector (Mounjaro) Allergies Allergy/AdvReac Type Severity Reaction Status Date / Time No Known Allergies Allergy Unknown Verified 06/10/24 10:19 Review of Systems Review of Systems: CONSTITUTIONAL: Denies body aches, fever, chills, or sweats. EYES: Denies visual changes, redness, or discharge. ENT: Denies rhinorrhea, congestion, sore throat, or otalgia. CARDIOVASCULAR: Denies chest pain, palpitations, or edema. RESPIRATORY: Denies cough or dyspnea. GASTROINTESTINAL: Denies abdominal pain, nausea, vomiting, or diarrhea. GENITOURINARY: + frequency, cloudy urine, hesitancy SKIN: Denies rash, itching, or wounds. MUSCULOSKELETAL: Denies back pain, joint pain, or myalgia. NEUROLOGIC: Denies headache, numbness, tingling, or weakness. PSYCH: Denies depression or anxiety. [facility] Past Medical History Medical History Psoriasis Coronary artery disease [facility] (myocardial infarction) Type 2 diabetes mellitus without complications Overweight JESSIKA (obstructive sleep apnea) Uses a dental apparatus. Surgical History Surgical History (Reviewed 06/10/24 @ 11:06 by Isabel Bertrand, [facility], ) Status post primary angioplasty with coronary stent Family History Family History (Reviewed 06/10/24 @ 11:06 by Isabel Bertrand, [facility], ) Mother Diabetes mellitus Hyperlipidemia Hypertension Family history of arthritis Sibling Acute myocardial infarction Cerebrovascular accident ALS (amyotrophic lateral sclerosis) Schizo affective schizophrenia Sibling Hyperlipidemia Social History Social History (Reviewed 06/10/24 @ 11:06 by Isabel Bertrand, [facility], ) Social History: Mr. Casillas lives at home with his and son. 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 His primary care provider is Dr. Aníbal Barker. He designates his , Ana, as his surrogate decision maker and would like to be a full code. Smoking packs per day: 1 Smoking cigarettes per day: 20.0 Years smoked: 20 Smoking pack-years: 20.00 Smoking status: Former smoker Tobacco type: cigarettes Second hand tobacco smoke exposure: Yes Smoking end date: 06/12/03 Alcohol intake: current Alcohol use details: RARE Substance use: never Substance use type: does not use Do You Feel Safe in your Home?: Yes Lack of Transportation: No Lack of Food: Never True Current Housing: I Have Housing Concerned About Future Housing: No Difficulty Paying Gas/Electric Bills: No Difficulty Paying for Meds: No Currently Unemployed: No Education: Don't Know Difficulty w/ Childcare or Family Care: No Living arrangements: with family Occupation/Education: occupation Gender identity (if verbalized by the patient): Male Sexual Orientation (if Verbalized by the Patient): Straight or Heterosexual Spiritual care concerns: No Comments At time of signature, I have reviewed and agree with nursing past medical, surgical, social and family history unless otherwise noted. Please see nursing chart for further information. There is no relevant family history pertinent to the presenting complaint Exam Narrative: GENERAL: Well-appearing, well-nourished, and in no acute distress. HEAD: Normocephalic, atraumatic. EYES: EOMI. No redness or drainage. Conjunctivae normal. ENT: Mucous membranes pink and moist. NECK: Normal AROM. CHEST: No respiratory distress. EXTREMITIES: Normal range of motion. No edema. SKIN: Warm, dry, no rash. Capillary refill normal. Normal skin turgor. NEURO: No focal deficits. Alert and oriented x3. Gait steady. PSYCH: Normal affect. No signs of depression or anxiety. Course Course Level of Care: Express Care Visit Vital Signs Vital signs: Vital Signs Temperature 97.1 F L 06/10/24 10:26 Pulse Rate 93 06/10/24 10:26 Respiratory Rate 16 06/10/24 10:26 Blood Pressure 118/91 H 06/10/24 10:26 Pulse Oximetry 97 06/10/24 10:26 Oxygen Delivery Room Air 06/10/24 10:26 Temperature 97.1 F L 06/10/24 10:26 Pulse Rate 93 06/10/24 10:26 Respiratory Rate 16 06/10/24 10:26 Blood Pressure 118/91 H 06/10/24 10:26 Pulse Oximetry 97 06/10/24 10:26 Oxygen Delivery Room Air 06/10/24 10:26 Reviewed MDM - Male Genitourinary MDM Narrative Medical decision making narrative: Urinalysis is consistent with UTI. Culture pending. Based on previous cultures, will place patient on doxycycline as he is susceptible to tetracycline. Anticipatory guidance given. Differential Diagnosis Differential diagnosis: Likely urinary tract infection, urethritis, epididymitis and prostatitis Lab Data Attestation: I reviewed the patient's lab results. Labs: Lab Results 06/10/24 Range/Units 11:01 POC Urine Color Yellow POC Urine Clarity Clear POC Urine pH 6.0 POC Ur Specif Amonate 1.015 POC Urine Protein 1+ (Negative) POC Ur Glucose (UA) 3+ (Negative) POC Urine Ketones Trace (Negative) POC Urine Blood 2+ (Negative) POC Urine Nitrite Positive (Negative) POC Urine Bilirubin Negative (Negative) POC Urine Urobilinogen 0.2 POC U Leukocyte Esteras Trace (Negative) Critical Care Time Critical Care Time Critical Care Time: No Discharge Plan Discharge Clinical Impression: Urinary tract infection Qualifiers: Urinary tract infection type: acute cystitis Hematuria presence: with hematuria Qualified Code(s): N30.01 - Acute cystitis with hematuria Patient Disposition: Home, Self-Care Condition: Stable Instructions: Antibiotic Form Additional Instructions: Your urine shows infection today. Take doxycycline as prescribed until gone. Your urine will be sent of for a culture to identify what type of bacteria is causing your infection. If the culture shows that your medication will not get rid of your infection, you will be notified and a new antibiotic will be called in for you. If your symptoms worsen to include fever, sweats, chills, nausea, vomiting, severe abdominal or back pain, please go to the ER for further evaluation. Your blood pressure was elevated above 120/80 today at Urgent Care. This puts you above the threshold for follow up. Please schedule a followup visit with your personal physician as soon as possible, for further evaluation and treatment. Even blood pressure exceeding 120/80 may indicate pre-hypertension. Patient Language: Andorran Prescriptions: New doxycycline hyclate 100 mg tablet 100 mg PO BID 7 Days Qty: 14 0RF No Action Mounjaro 5 mg/0.5 mL pen injector 5 mg SUBCUT WEEKLY Jardiance 10 mg tablet 10 mg PO DAILY rosuvastatin [Crestor] 10 mg tablet 10 mg PO HS (DME) OneTouch Ultra Test Strip See Rx Instructions .Route Qty: 100 5RF Rx Instructions: As directed to test blood sugar qam aspirin [Children's Aspirin] 81 mg tablet,chewable 81 mg PO DAILY@0800 Qty: 90 3RF Follow-up/Referrals: Aníbal Barker MD [Primary Care Provider] - Time of Disposition: 11:10
== END 2024-06-10 11:15 | disposition home or self-care (01) ==
PROVIDERS: Emergency Provider Nurse Practitioner; PCP Family Medicine
DX: N30.01 Acute cystitis with hematuria (principal); Z87.891 Personal history of nicotine dependence; I25.10 Atherosclerotic heart disease of native coronary artery without angina pectoris; E11.9 Type 2 diabetes mellitus without complications; G47.33 Obstructive sleep apnea (adult) (pediatric); L40.9 Psoriasis, unspecified; I25.2 Old myocardial infarction; Z95.5 Presence of coronary angioplasty implant and graft
CPT/HCPCS: 81003; 87086; 87181; 99213; G0463

== ENCOUNTER 2024-10-16 10:27 | Outpatient (CLI) | payer OTHER, SELFPAY ==
--- NOTE | ~2024-10-16 | XR_ITS ---
XR abdomen/kub 1V Ordering provider: Tobi Fiore MD History: . Calculus of kidney . Comparison: None. FINDINGS: BOWEL: Fecal material is loaded in the colon. Nonobstructive bowel gas pattern. ORGANOMEGALY: None. SIGNIFICANT PATHOLOGIC CALCIFICATIONS: None. OTHER: No free air is seen under the diaphragm. IMPRESSION: NO ACUTE ABDOMINAL FINDINGS. Constipation. Reviewed, dictated and finalized at location A.
== END 2024-10-16 10:28 | disposition home or self-care (01) ==
LOC: MICIMG 10:29
PROVIDERS: PCP Family Medicine; Visit Provider Urology
DX: N20.0 Calculus of kidney (principal); K59.00 Constipation, unspecified
CPT/HCPCS: 74018

== ENCOUNTER 2025-01-24 09:25 | Outpatient (CLI) | payer OTHER, SELFPAY ==
--- NOTE | ~2025-01-24 | XR_ITS ---
XR shoulder RT min 2V 01/24/2025 09:38 Indication: Right shoulder pain Procedure: 4 views right shoulder Comparison: 09/05/2014 Findings: Mild-moderate osteoarthritis of the acromioclavicular joint. No acute fracture, subluxation or dislocation. Impression: 1: Mild-moderate osteoarthritis of the acromioclavicular joint. Reviewed, dictated and finalized at location A. Impression: 1: Mild-moderate osteoarthritis of the acromioclavicular joint.
== END 2025-01-24 09:26 | disposition home or self-care (01) ==
LOC: MICIMG 09:26
PROVIDERS: PCP Family Medicine; Visit Provider Physician Assistant
DX: M19.011 Primary osteoarthritis, right shoulder (principal)
CPT/HCPCS: 73030

== ENCOUNTER 2025-03-28 00:22 | Day surgery (SDC) | payer OTHER, SELFPAY ==
[2025-03-19 12:02] VITALS: BMI 26.4
--- OUTSIDE RECORDS SUMMARY | 2025-03-28 00:25 | XMS_ITS | Clinical Summary ---
Author Organization [facility] Flare Code Address [address] [place] [address] Care Team Providers Care Presentation Designer Name Role Phone Aníbal Barker MD Primary Care Provider Aníbal Barker MD Unavailable Source Comments [facility],non-owned Affiliates and Associated Physician Practices is amultiple site organization consisting of ambulatory clinics and hospital sitesin [place], [place], [place] and [place]. This disclosure is being madepursuant to the Care Everywhere program and may not contain all information available regarding this patient. Last updated 18.[facility] Flare Code Allergies No known active allergies Medications * Be aware that medications may not be up to date on this document. Alwaysverify current medications with the patient. Eszopiclone (LUNESTA PO) Active TAMSULOSIN HCL PO Active predniSONE (DELTASONE) 20 MG tabletIndication s:Contact dermatitis due to plants, except food, unspecified contact dermatitis type Take 1 tablet by mouth 2 times daily 14 tablet 11/16/2017 Active Active Problems No known active problems Immunizations Immunization Administration Dates Next Due HEP A VACCINE, ADULT 10/15/2016 Family History Medical History Relation Name Comments Diabetes - Type 2 Mother Relation Name Status Comments Mother Social History Tobacco Use Types Packs/Day Years Used Date Smoking Tobacco: Former Smokeless Tobacco: Never Sex and Gender Information Value Date Recorded Sex Assigned at Not on file Legal Sex Male 10:49 AM CDT Gender Identity Not on file Sexual Orientation Not on file Last Filed Vital Signs Vital Sign Reading Time Taken Comments Blood Pressure 128/76 11/16/2017 10:26 AM CDT Pulse 74 11/16/2017 10:26 AM CDT Temperature 36.9 C (98.4 F) 11/16/2017 10:26 AM CDT Respiratory Rate 16 11/16/2017 10:26 AM CDT Oxygen Saturation - - Inhaled Oxygen Concentration - - Weight 90.7 kg (200 lb) 11/16/2017 10:26 AM CDT Height 180.3 cm (5' 11) 11/16/2017 10:26 AM CDT Body Mass Index 27.89 11/16/2017 10:26 AM CDT Plan of Treatment Health Maintenance Due Date Last Done Comments COLOGUARD (AGES 45-75) - COL ON CA SCREENING 1963 COLON MONITORING 1963 COLONOSCOPY - COLON CA SCREENING 1963 CT COLONOGRAPHY - COLON CA SCREENING 1963 Colorectal Cancer Screening 1963 FIT - COLON CA SCREENING 1963 FLEX SIG - COLON CA SCREENING 1963 LIPID TESTING 1963 HIV SCREENING 12/19/1978 HEPATITIS C SCREENING 12/15/1981 DTAP/TDAP/TD VACCINES (1 - Tdap) 12/19/1982 PNEUMOCOCCAL VACCINE 50+ (1 of 1 - PCV) 12/19/2013 ZOSTER VACCINE (1 of 2) 12/19/2013 HEPATITIS A VACCINE (2 of 2 - Risk 2-dose series) 04/17/2017 10/15/2016 SCREENING FOR DIABETES 11/16/2017 DEPRESSION SCREENING 06/12/2024 COVID-19 VACCINE ( - 2023-2 5 season) 2025 INFLUENZA VACCINE (#1) 2025 Respiratory Syncytial Virus (RSV) Vaccine Pt: or over 60 yrs (1 - 1-dose 75+ series) 12/19/2038 HEPATITIS B VACCINE Aged Out No longe r eligible based on patient's age to complete this topic HIB VACCINE Aged Out No longer eligi ble based on patient's age to complete this topic HPV VACCINE Aged Out No longer eligi ble based on patient's age to complete this topic MENINGOCOCCAL (Group B) VACC INE SHARED DECISION-MAKING Aged Out No longer eligibl e based on patient's age to complete this topic MENINGOCOCCAL GROUPS A/C/Y/W VACCINE Aged Out No longer eligible b ased on patient's age to complete this topic Insurance [employer] [facility] Address: [facility] [id number] [place] [address] ANTHEM Care Teams Presentation Designer Relationship Specialty Start Date End Date Aníbal Barker MD [address] [place] [address] PCP - General 03/10/21 Aníbal Barker MD [address] [place] [address] Family Medicine 03/10/21
--- OUTSIDE RECORDS SUMMARY | 2025-03-28 00:25 | XMS_ITS | Encounter Summary ---
Author Organization [facility] Address [address] [place] [id number] Care Team Providers Care Private Duty Aide Name Role Phone Aníbal Barker MD Primary Care Provider [phone] Encounter Details Date Type Department Care Team (Late st Contact Info) Description 09/09/2024 Prep for Procedure [facility] [place], [place] [id number] Tobi Fiore MD [address] [address] [place], [place] [id number] Social History Tobacco Use Types Packs/Day Years Used Date Smoking Tobacco: Former Cigarettes 1 16 S tarted: 1985 Smokeless Tobacco: Never Comments:Quit 2003 Alcohol Use Standard Drinks/Week Comments Not Currently 0 (1 standard drink = 0.6 oz pur e alcohol) special occasions Sex and Gender Information Value Date Recorded Sex Assigned at Male 09/12/2024 10:32 AM CDT Legal Sex Male 8:57 AM CDT Gender Identity Not on file Sexual Orientation Not on file documented as of this encounter Plan of Treatment Not on file documented as of this encounter Results * PROTIME/INR, VENOUS (09/12/2024 10:44 AM CDT) PROTIME 11.6 10.2 - 12.9 SEC 09/12/2024 12:[address] [facility] INR 1.0 09/12/2024 12:[address] [facility] Comment: Recommended INR Therapeutic Goals: 2.0-3.0 Routine Therapy 2.5-3.5 Mechanical Prosthetic Valves (High Risk) 09/12/2024 10:4 4 AM CDT Tobi Fiore MD LABORATORY Final Res ult Performing Organization Address City/[facility]/ZIP Co de Phone Number [facility] [address] [place] [address], [place] [phone] * PTT, PARTIAL THROMBOPLASTIN TIME (09/12/2024 10:44 AM CDT) PTT 35.0 25.1 - 36.5 SEC 09/12/2024 12:[address] [facility] 09/12/2024 10:4 4 AM CDT Tobi Fiore MD LABORATORY Final Res ult Performing Organization Address City/[facility]/ZIP Co de Phone Number [facility] [address] [place] [address], [place] [phone] * (ABNORMAL) BASIC METABOLIC PANEL (09/12/2024 10:44 AM CDT) GLUCOSE 151(H) 70 - 99 MG/DL 09/12/2024 12:[address] [facility] BUN 16 7 - 18 MG/DL 09/12/2024 12:[address] [facility] CREATININE S/P/B 1.27 0.7 - 1.3 MG/DL 09/12/2024 12:[address] [facility] SODIUM S/P/B 136 136 - 145 MMOL/L 09/12/2024 12:[address] [facility] POTASSIUM S/P/B 4.1 3.5 - 5.1 MMOL/L 09/12/2024 12:[address] [facility] CHLORIDE S/P/B 108 97 - 115 MMOL/L 09/12/2024 12:[address] [facility] CO2 20.8(L) 21 - 32 MMOL/L 09/12/2024 12:[address] [facility] CALCIUM S/P/B 9.3 8.5 - 10.1 MG/DL 09/12/2024 12:[address] [facility] ANION GAP 7.2 2 - 10 MMOL/L 09/12/2024 12:[address] [facility] BUN CREATININE RATIO 12.6 6 - 26 09/12/2024 12:[address] [facility] GFR ESTIMATE 65(L) >90 ML/MIN/1.7 3 M2 09/12/2024 12:[address] [facility] Comment: NOTE: eGFR is not calculated for patients <18 years of age or gender unknown. This is an estimated GFR calculation using the new CKD EPI creatinine equation without race and so does not require a correction factor for race. This estimated GFR should not be used for calculating drug doses. 09/12/2024 10:4 4 AM CDT Tobi Fiore MD LABORATORY Final Res ult [facility] [address] [place] [address], [place] [phone] * CBC W/DIFF AUTOMATED (09/12/2024 10:44 AM CDT) WBC 6.60 4.5 - 11.0 x10'3/uL 09/12/2024 11:[address] [facility] RBC 5.67 4.70 - 6.10 x10'6/uL 09/12/2024 11:[address] [facility] HGB 17.5 14.0 - 18.0 G/DL 09/12/2024 11:[address] [facility] HCT 49.5 43.0 - 54.0 % 09/12/2024 11:[address] [facility] MCV 87.3 80.0 - 94.0 FL 09/12/2024 11:[address] [facility] MCH 30.9 27.0 - 31.0 PG 09/12/2024 11:[address] [facility] MCHC 35.4 32.0 - 36.0 G/DL 09/12/2024 11:[address] [facility] RDW 11.9 11.5 - 14.5 % 09/12/2024 11:[address] [facility] PLT 230 130 - 400 x10'3/uL 09/12/2024 11:[address] [facility] MPV 10.1 9.3 - 12.2 FL 09/12/2024 11:[address] [facility] DIFFERENTIAL TYPE AUTOMATED DIFFERENTIAL 09/12/2024 11:[address] [facility] NEUTROPHILS % 66.2 % 09/12/2024 11:[address] [facility] LYMPHOCYTES % 21.5 % 09/12/2024 11:[address] [facility] MONOCYTES % 8.5 % 09/12/2024 11:[address] [facility] EOSINOPHILS 2.3 % 09/12/2024 11:[address] [facility] BASOPHILS 1.2 % 09/12/2024 11:[address] [facility] IMMATURE GRANS % 0.3 % 09/13/19 11:[address] [facility] ABS. NEUTROPHILS 4.37 1.80 - 7.70 x10'3/uL 09/12/2024 11:[address] [facility] ABS. LYMPHOCYTES 1.42 1.00 - 4.80 x10'3/uL 09/12/2024 11:[address] [facility] ABS. MONOCYTES 0.56 0.30 - 0.82 x10'3/uL 09/12/2024 11:[address] [facility] ABS. EOSINOPHILS 0.15 0.04 - 0.54 x10'3/uL 09/12/2024 11:[address] [facility] ABS. BASOPHILS 0.08 0.01 - 0.08 x10'3/uL 09/12/2024 11:[address] [facility] ABS. IMMATURE GRANULOCYTES 0.02 0.00 - 0.49 x10'3/uL 09/12/2024 11:[address] [facility] 09/12/2024 10:4 4 AM CDT us Tobi Fiore MD LABORATORY Final Res ult [facility] [address] [place] [address], [place] [phone] * URINE BACTERIA CULTURE (09/12/2024 10:39 AM CDT) SPEC DESCRIPTION URINE CLEAN CATCH 09/12/2024 10:[address] [facility] SPECIAL REQUESTS NO SPECIAL REQUEST 09/12/2024 10:[address] [facility] CULTURE RESULT NO GROWTH 2 DAYS 09/14/2024 8:[address] [facility] URINE SPECIMEN OBTAINED BY CLEAN CATCH PROCEDURE / Unknown 09/12/2024 10:39 AM CDT 09/12/2024 10:45 AM CDT us Tobi Fiore MD MICROBIOLOGY - GENERAL OR DERABLES Final Result [facility] [address] [place] [address], * (ABNORMAL) URINALYSIS (09/12/2024 10:39 AM CDT) SPECIMEN TYPE URINE CLEAN CATCH 09/12/2024 10:[address] [facility] COLOR (U) LIGHT YELLOW 09/12/2024 11:[address] [facility] TRANSPARENCY CLEAR 09/12/2024 11:[address] [facility] SPECIFIC GRAVITY (U) 1.015 1.001 - 1.030 09/12/2024 11:[address] [facility] U PH 5.0 5.0 - 9.0 09/12/2024 11:[address] [facility] LEUKOCYTES (U) 25(A) NEGATIVE 09/12/2024 11:[address] [facility] NITRITES NEGATIVE NEGATIVE 09/12/2024 11:[address] [facility] PROTEIN RANDOM (U) NEGATIVE <30 MG/DL 09/12/2024 11:[address] [facility] GLUCOSE (U) NORMAL NORMAL MG/DL 09/12/2024 11:[address] [facility] KETONES MG/DL (U) NEGATIVE NEGATIVE MG/DL 09/12/2024 11:[address] [facility] UROBILINOGEN NORMAL NORMAL MG/DL 09/12/2024 11:[address] [facility] BILIRUBIN (U) NEGATIVE NEGATIVE MG/DL 09/12/2024 11:[address] [facility] BLOOD (U) NEGATIVE NEGATIVE 09/12/2024 11:[address] [facility] MUCUS RARE /LPF 09/12/2024 11:[address] [facility] WBC/HPF 2 <6 /HPF 09/12/2024 11:[address] [facility] RBC/HPF <1 <6 /HPF 09/12/2024 11:[address] [facility] SQUAMOUS EPITHELIALS RARE /HPF 09/12/2024 11:[address] [facility] URINE SPECIMEN OBTAINED BY CLEAN CATCH PROCEDURE / Unknown 09/12/2024 10:39 AM CDT us Tobi Fiore MD URINE ORDERABLES Final Re sult [facility] [address] [place] [address], [place] [phone] documented in this encounter Visit Diagnoses Diagnosis Weak urinary stream- Primary Slowing of urinary stream Frequency of micturition Urinary frequency Calcium kidney stone Calculus of kidney documented in this encounter Care Teams Private Duty Aide Relationship Specialty Start Date End Date Aníbal Barker MD [address] [place] [address] PCP - General FAMILY PRACTICE 09/09/24 Dr. Luis Fernando Barrera Physician CARDIOLOGY 06/12/24 documented as of this encounter
--- OUTSIDE RECORDS SUMMARY | 2025-03-28 00:25 | XMS_ITS | Clinical Summary ---
Author Organization [facility] [address] [place] [id number] Care Team Providers Care Gut Sorter Name Role Phone Aníbal Barker MD Primary Care Provider Aníbal Barker MD Unavailable [phone] Allergies Active Allergy Reactions Criticality Noted Date Comments Empagliflozin Other (See comments) 09/30/2024 Infection Metformin Diarrhea Medium 10/29/2018 Metformin - GI upset, Metformin XR - insomnia Semaglutide Other (See comments) Low 06/19/2023 Insomnia Bktletx-Wbl-[id number] Reductase Inhibitors Other (See comments) Low 10/29/2018 Hip pain Medications aspirin 81 mg chewable tablet TAKE 1 TABLET BY MOUTH EVERY DAY AT 8 AM 1 Active cholecalcifero l (VITAMIN D-3) 2000 unit tablet Take 50 mcg by mouth daily Active tamsulosin (FLOMAX) 0.4 mg extended release capsule Take 1 capsule (0.4 mg total) by mouth nightly Active Mounjaro 5 mg/0.5 mL pen injector injectionIndic ations:Type 2 diabetes mellitus with hyperglycemia, without long-term current use of insulin (HCC) INJECT 5 MG UNDER THE SKIN EVERY 7 DAYS 6 mL 3 5 01/03/20 26 Active eszopiclone (LUNESTA) 2 mg tablet 5 Active rosuvastatin (CRESTOR) 10 mg tablet TAKE 1 TABLET DAILY 90 tablet 3 5 Active rosuvastatin (CRESTOR) 10 mg tablet TAKE 1 TABLET DAILY 90 tablet 3 11/13/202 4 03/20/20 25 Discontinued Active Problems Problem Noted Date Diagnosed Date Lack of stamina 02/13/2024 Palpitations 01/30/2023 Psoriasis 01/14/2022 Kidney stone 02/19/2021 SOB (shortness of breath) 10/16/2020 Coronary artery disease of n ative artery of [place] heart with stable angina pectoris 07/03/2020 Presence of stent in coronary artery 07/03/2020 Burning chest pain 06/16/2020 Psychophysiological insomnia 01/05/2018 JESSIKA (obstructive sleep apnea) 01/05/2018 Hyperlipidemia associated with type 2 diabetes m ellitus 10/30/2017 Assessment & Plan (02/07/2025 9:30 AM CDT): Chronic problem. Not at goal on current LDL less than 70 for diabetic patients. Currently taking Rosuvastatin 10mg. Last lipid panel: 10/02/24 LDL=78, TG=73. Assessment & Plan (09/30/2024 9:20 AM CDT): Chronic problem. Not at goal on current LDL less than 70 for diabetic patients. Currently taking Rosuvastatin 10mg. Last lipid panel:03/26/24 DQY=585, FX=193. Assessment & Plan (03/26/2024 9:03 AM CDT): Chronic problem. Not at goal on current LDL less than 70 for diabetic patients. Currently taking Rosuvastatin 10mg. Last lipid panel: 08/07/23 NSA=036, JL=114. Diet will improve with nursing home--will not be traveling for work & eating as much fast food. Assessment & Plan (10/09/2023 10:11 AM CDT): Chronic problem. Not at goal on current LDL less than 70 for diabetic patients. Currently taking Rosuvastatin 10mg. Last lipid panel: 08/07/23 YPU=232, OR=214. Diet will improve with nursing home--will not be traveling for work & eating as much fast food. Assessment & Plan (06/19/2023 11:42 AM JAPANESE INTERPRETER): Chronic problem. Not at goal on current LDL less than 70 for diabetic patients. Currently taking Rosuvastatin 10mg. Last lipid panel: 08/01/22 LDL=93, TG=98. Assessment & Plan (02/27/2023 9:10 AM CDT): Chronic problem. Not at goal on current LDL less than 70 for diabetic patients. Currently taking Rosuvastatin 10mg. Last lipid panel: 08/01/22 LDL=93, TG=98. Assessment & Plan (08/01/2022 11:58 AM JAPANESE INTERPRETER): On statin therapy Tolerating well Assessment & Plan (04/11/2022 12:22 PM CDT): On statin therapy Tolerating well Assessment & Plan (01/17/2022 11:36 AM CDT): On statin therapy Tolerating well Assessment & Plan (09/13/2021 10:20 AM CDT): On statin therapy Assessment & Plan (02/18/2021 10:11 AM CDT): Pt on statin therapy now Tolerating well Assessment & Plan (07/20/2020 2:21 PM JAPANESE INTERPRETER): Pt on statin therapy now Tolerating well Assessment & Plan (01/20/2020 10:39 AM CDT): LDL - high 130 - 10/2018 Pt. Tried 4 different statins - did not tolerate due to hip pains Also tried Zetia - stopped has he noted to see worsening in his A1c Pt. Has no clinical CVD Recheck lipid panel Nutritional counseling provided Advised to increase physical activity Assessment & Plan (09/16/2019 10:12 AM CDT): LDL - high 130 - 10/2018 Pt. Tried 4 different statins - did not tolerate due to hip pains Also tried Zetia - stopped has he noted to see worsening in his A1c Pt. Has no clinical CVD Nutritional counseling provided Advised to increase physical activity Assessment & Plan (06/11/2019 11:56 AM JAPANESE INTERPRETER): LDL - high 130 - 10/2018 Pt. Tried 4 different statins - did not tolerate due to hip pains Also tried Zetia - stopped has he noted to see worsening in his A1c Pt. Has no clinical CVD Nutritional counseling provided Advised to increase physical activity Assessment & Plan (04/15/2019 8:26 PM JAPANESE INTERPRETER): Recent LDL - high 130 - 10/2018 Pt. Tried 4 different statins - did not tolerate due to hip pains Also tried Zetia - stopped has he noted to see worsening in his A1c Pt. Has no clinical CVD Nutritional counseling provided Advised to increase physical activity Assessment & Plan (10/29/2018 9:39 PM CDT): Recent LDL - high 145 - 08/2017 Pt. Tried 4 different statins - did not tolerate due to hip pains Also tried Zetia - stopped has he noted to see worsening in his A1c Pt. Has no clinical CVD Nutritional counseling provided Advised to increase physical activity Assessment & Plan (10/30/2017 9:44 AM CDT): Recent LDL - high 145 - 08/2017 Pt. Tried 4 different statins - did not tolerate due to hip pains Also tried Zetia - stopped has he noted to see worsening in his A1c Pt. 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 Assessment & Plan (03/26/2024 9:03 AM CDT): Last DM eye exam 10/13/23 no DMR/DME [facility] Assessment & Plan (02/27/2023 9:10 AM CDT): Last DM eye exam 04/16/22 at [facility] showing no DMR. Assessment & Plan (08/01/2022 12:02 PM JAPANESE INTERPRETER): Advised to follow up as recommend by opthalmology work on better glycemic control Assessment & Plan (01/17/2022 11:37 AM CDT): Advised to follow up as recommend by opthalmology work on better glycemic control Assessment & Plan (01/20/2020 10:39 AM CDT): Advised to make an eye doctor aptp soon to follow up Assessment & Plan (06/11/2019 11:56 AM JAPANESE INTERPRETER): Advised to keep following up with eye doctors as advised Assessment & Plan (04/15/2019 8:26 PM JAPANESE INTERPRETER): Advised to keep following up with eye doctors as advised Assessment & Plan (10/29/2018 9:40 PM CDT): Advised to keep following up with eye doctors as advised Assessment & Plan (10/30/2017 9:43 AM CDT): Mild changes A1c well controlled Follow up with eye doctor 04/2018 - for one year follow up Statin intolerance 10/30/2017 Overweight with body mass in dex (BMI) of 27 to 27.9 in adult 10/30/2017 Assessment & Plan (08/01/2022 11:59 AM JAPANESE INTERPRETER): Chronic, stable Counseled on diet and exercise Assessment & Plan (04/11/2022 12:22 PM CDT): Chronic, unchanged Discussed about healthy lifestyle habits advise to work on healthy diet, avoid processed foods , increase vegetables and protein and cut back on carb portions and also avoid fruit juices and regular soda and desserts Increase physical activity , recommend at least 150 min of aerobic activity per week and include resistance training 2 x weekly Assessment & Plan (01/17/2022 11:36 AM CDT): Chronic, unchanged Discussed about healthy lifestyle habits advise to work on healthy diet, avoid processed foods , increase vegetables and protein and cut back on carb portions and also avoid fruit juices and regular soda and desserts Increase physical activity , recommend at least 150 min of aerobic activity per week and include resistance training 2 x weekly Assessment & Plan (09/13/2021 10:20 AM CDT): Chronic, worsening Discussed about healthy lifestyle habits advise to work on healthy diet, avoid processed foods , increase vegetables and protein and cut back on carb portions and also avoid fruit juices and regular soda and desserts Increase physical activity , recommend at least 150 min of aerobic activity per week and include resistance training 2 x weekly Assessment & Plan (02/18/2021 10:11 AM CDT): Counseled on diet and exercise Assessment & Plan (07/20/2020 2:21 PM JAPANESE INTERPRETER): Chronic, unchanged Discussed about healthy lifestyle habits advise to work on healthy diet, avoid processed foods , increase vegetables and protein and cut back on carb portions and also avoid fruit juices and regular soda and desserts Increase physical activity , recommend at least 150 min of aerobic activity per week and include resistance training 2 x weekly Assessment & Plan (01/20/2020 10:38 AM CDT): Chronic, unchanged Discussed about healthy lifestyle habits advise to work on healthy diet, avoid processed foods , increase vegetables and protein and cut back on carb portions and also avoid fruit juices and regular soda and desserts Increase physical activity , recommend at least 150 min of aerobic activity per week and include resistance training 2 x weekly Assessment & Plan (09/16/2019 10:13 AM CDT): Overall improving counseled on diet and exercise Assessment & Plan (06/11/2019 11:56 AM JAPANESE INTERPRETER): Chronic, improving Discussed about healthy lifestyle habits advise to work on healthy diet, avoid processed foods , increase vegetables and protein and cut back on carb portions and also avoid fruit juices and regular soda and desserts Increase physical activity , recommend at least 150 min of aerobic activity per week and include resistance training 2 x weekly Assessment & Plan (04/15/2019 8:24 PM JAPANESE INTERPRETER): Chronic, improving Discussed about healthy lifestyle habits advise to work on healthy diet, avoid processed foods , increase vegetables and protein and cut back on carb portions and also avoid fruit juices and regular soda and desserts Increase physical activity , recommend at least 150 min of aerobic activity per week and include resistance training 2 x weekly Assessment & Plan (10/30/2017 9:45 AM CDT): Obesity is improving with lifestyle modifications. Discussed the patient's BMI. The BMI is above average; BMI management plan is completed. General weight loss/lifestyle modification strategies discussed (elicit support from others; identify saboteurs; non-food rewards, etc). Behavioral treatment: stress management. Diet interventions: moderate (500 kCal/d) deficit diet. Informal exercise measures discussed, e.g. taking stairs instead of elevator. Regular aerobic exercise program discussed. Type 2 diabetes mellitus wit h hyperglycemia, without long-term current use of insulin 04/17/2017 Assessment & Plan (02/07/2025 9:49 AM CDT): Chronic problem, controlled. A1c at goal and improved from 7.3% 09/30/24 to now 5.9% no changes at this time. Current medications: Mounjaro 5 mg weekly UTD on DM eye exam (12/27/24 no DMR/DME [facility]) UTD on labs. Strive for regular exercise (30min most days) and diet (get at least 4-5 servings of fruit and veggies daily, avoid processed foods, increase lean protein intake and decrease carb portions as well as fruit juices, regular soda & desserts). Watch carbs and simple sugars. Check the blood sugar as needed. Check the feet daily for skin breakdown and infection. Assessment & Plan (09/30/2024 9:48 AM CDT): Chronic problem. worsening A1c; increased from 6.9% 03/26/24 to now 7.3% Start the metformin 500mg with largest meal. In 4-5 days increase to twice daily. Has had loose stools with metformin but reports that Mounjaro causes constipation; hoping that it balances him out. Current medications: Metformin 500mg twice daily Mounjaro 5 mg weekly UTD on DM eye exam (10/13/23 no DMR/DME [facility]) Will update MA/Cr. Verified that he uses mychart. Aware to check results/results letter in mychart. Will contact by phone if needed. Strive for regular exercise (30min most days) and diet (get at least 4-5 servings of fruit and veggies daily, avoid processed foods, increase lean protein intake and decrease carb portions as well as fruit juices, regular soda & desserts). Watch carbs and simple sugars. Check the blood sugar as needed. Check the feet daily for skin breakdown and infection. Assessment & Plan (03/26/2024 9:40 AM CDT): Chronic problem. At goal; A1c stable at 6.9%. Current medications: Jardiance 10mg Mounjaro 2.5 mg weekly. UTD on DM eye exam (10/13/23 no DMR/DME [facility]) UTD on labs. Strive for regular exercise (30min most days) and diet (get at least 4-5 servings of fruit and veggies daily, avoid processed foods, increase lean protein intake and decrease carb portions as well as fruit juices, regular soda & desserts). Watch carbs and simple sugars. Check the blood sugar as needed. Check the feet daily for skin breakdown and infection. Assessment & Plan (10/09/2023 10:10 AM CDT): Chronic problem. At goal; A1c improved from 7.1% 06/19/23 to now 6.9% discussed diet/intake. Current medications: Jardiance 10mg Mounjaro 5mg weekly. UTD on DM eye exam, letter sent to [facility] to get copy of report (04/2023). Sched for 10/2023 also. Will update labs. Verified that he uses mychart. Aware to check results/results letter in mychart. Will contact by phone if needed. Strive for regular exercise (30min most days) and diet (get at least 4-5 servings of fruit and veggies daily, avoid processed foods, increase lean protein intake and decrease carb portions as well as fruit juices, regular soda & desserts). Watch carbs and simple sugars. Check the blood sugar as needed. Check the feet daily for skin breakdown and infection. Assessment & Plan (06/19/2023 12:20 PM JAPANESE INTERPRETER): Chronic problem. Near goal; A1c improved from 7.8% 02/27/23 to now 7.1%. discussed diet/intake. Insomnia has worsened with Ozempic. Tried to move down in dose & also skipped week to see if improvement but returns with regular dosing of Ozempic at any dose. Also rec'd letter from insurance that Ozempic is no longer covered by Mounjaro is. Sample of Mounjaro 2.5mg weekly given. Reviewed how to inject. 90 day 2.5mg dose sent to [facility]. Discussed possible difficulty filling Mounjaro 90 days as he recently filled Ozempic 90 days. Current medications: Jardiance 10mg Mounjaro 2.5mg weekly. UTD on DM eye exam, letter sent to [facility] to get copy of report (04/2023) UTD on labs. Strive for regular exercise (30min most days) and diet (get at least 4-5 servings of fruit and veggies daily, avoid processed foods, increase lean protein intake and decrease carb portions as well as fruit juices, regular soda & desserts). Watch carbs and simple sugars. Check the blood sugar daily. Check the feet daily for skin breakdown and infection. Assessment & Plan (02/27/2023 9:37 AM CDT): Chronic problem. Not at goal; A1c raji from 6.7% 08/01/22 to now 7.8%. discussed diet/intake. Will start Ozempic. Sample given. Shown how to use. To check BS daily. Discussed may need to hold Jardiance if lowering BS. Current medications: Jardiance 10mg Ozempic 0.25mg weekly x 4 then increase to 0.5mg weekly. UTD on DM eye exam (no DMR 04/16/22) UTD on labs. Strive for regular exercise (30min most days) and diet (get at least 4-5 servings of fruit and veggies daily, avoid processed foods, increase lean protein intake and decrease carb portions as well as fruit juices, regular soda & desserts). Watch carbs and simple sugars. Check the blood sugar daily. Check the feet daily for skin breakdown and infection. Assessment & Plan (08/01/2022 11:59 AM JAPANESE INTERPRETER): Chronic , overall stable , at goal A1c 6.7% Counseled on diet and exercise Keep taking Jardiance 10 mg oral daily Labs today Annual dilated eye exam Keep following with foreman/pile driving and erection Follow up in 6 months Assessment & Plan (04/11/2022 12:23 PM CDT): Chronic, uncontrolled, significant improvement A1c - 6.9 % - counseled on diet and exercise - change Jardiance to 10 mg oral daily - advised good oral hydration - check blood sugars at home - sent in script for Freestyle arsalan CGM - advise to see prepared foods service team member - if in future above regimen along with lifestyle changes do not help enough, than will consider adding insulin regimen or adding GLP-1 agonist - recommend annual dilated eye exam - daily foot care - follow up in 3 months Assessment & Plan (01/17/2022 11:36 AM CDT): Chronic, uncontrolled, worsening A1c - 9.2 % - counseled on diet and exercise - increase Rybelsus to 14 mg oral daily - start Jardiance 25 mg oral daily - advised good oral hydration - check blood sugars at home - sent in script for Freestyle arsalan CGM - advise to see prepared foods service team member - if in future above regimen along with lifestyle changes do not help enough, than will consider adding insulin regimen - recommend annual dilated eye exam - daily foot care - follow up in 2 months Assessment & Plan (09/13/2021 10:19 AM CDT): Chronic, uncontrolled, worsening A1c today 7.3% Counseled on diet and exercise next Increase Rybelsus to 7 mg oral daily Labs before next appointment Daily foot care Annual dilated eye exam Follow-up in 4 months Assessment & Plan (02/18/2021 10:12 AM CDT): Chronic, overall fairly controlled , mostly diet controlled A1c today - 6.6 % Advise to check BS at home , fasting , pre dinner - pt intolerant to many meds - advised to keep taking Rybelsus 3 mg oral oral 3-5 x weekly and slowly start taking once daily - advise to keep working on intermittent fasting , but strongly advised to cut back or avoid on sugary stuff, desserts, ice creams , cookies - advise to be more consistent with his diet - advise to increase physical activity and include resistance training - gave Rybelsus samples and sent a script to pt pharmacy - daily foot care - labs before next appt - due for eye exam 04/2021 - follow up in 6 months Assessment & Plan (07/20/2020 2:20 PM JAPANESE INTERPRETER): Chronic, overall fairly controlled , mostly diet controlled A1c today - 6.7 % Advise to check BS at home , fasting , pre dinner - pt intolerant to many meds - advised to try taking Rybelsus 3 mg oral oral twice weekly and slowly start taking once daily - advise to keep working on intermittent fasting , but strongly advised to cut back or avoid on sugary stuff, desserts, ice creams , cookies - advise to be more consistent with his diet - advise to increase physical activity and include resistance training - gave Rybelsus samples and sent a script to pt pharmacy - daily foot care - follow up in 6 months Assessment & Plan (01/20/2020 10:38 AM CDT): Chronic, overall improving A1c A1c today - 6.2 % Advise to check BS at home , fasting , pre dinner - pt intolerant to many meds - advise to try taking Rybelsus 3 mg oral every Monday atleast and slowly increase to oral twice weekly - advise to keep working on intermittent fasting , but strongly advised to cut back or avoid on sugary stuff, desserts, ice creams , cookies - advise to be more consistent with his diet - advise to increase physical activity and include resistance training - do labs in 3 Months, fasting - advised to make an eye doctor appt soon - daily foot care - follow up in 6 months Assessment & Plan (09/16/2019 10:12 AM CDT): Chronic, overall improving A1c A1c today - 6.4 % Advise to check BS at home , fasting , pre dinner - pt intolerant to many meds - advise to keep working on intermittent fasting , but strongly advised to cut back or avoid on sugary stuff, desserts, ice creams , cookies - advise to increase physical activity and include resistance training - do labs in 2 months - follow up in 4 months Assessment & Plan (06/11/2019 11:55 AM JAPANESE INTERPRETER): Chronic, improving , but still not at goal A1c today - 7.1 % Advise to continue on his lifestyle modifications Pt has multiple drug intolerances Plan to try Oral GLP-1 agonist Semaglutide 3 mg oral daily with first meal of the day Advise to keep a check on his BS Follow up in 3 months Assessment & Plan (04/15/2019 8:23 PM JAPANESE INTERPRETER): Diabetes is worsening. A1c today - 7.3 % Pt tried multiple oral diabetic meds, some them he is intolerant and some of them are every expensive Next options Try sulfonylureas vs GLP-1 agonist vs insulin - plan to start Glimepiride 2 mg oral daily with dinner - advised to check BS atleast 2x daily before breakfast and before dinner / bedtime - advised to increase Physical activity Reminded to bring in blood sugar diary at next visit. Dietary recommendations for ADA diet. Regular aerobic exercise. Discussed ways to avoid symptomatic hypoglycemia. Discussed sick day management. Discussed foot care. Reminded to get yearly retinal exam. Medication changes per orders. Diabetes will be reassessed in 3 months. Assessment & Plan (10/29/2018 9:36 AM CDT): Diabetes is improving with lifestyle modifications. A1c today - 6.5 % - advise to give a trial of Januvia 100 mg - start taking 1/2 tab oral daily and if tolerates can increase to full tab in future - samples and send in script to pharmacy Reminded to bring in blood sugar diary at next visit. Dietary recommendations for ADA diet. Regular aerobic exercise. Discussed ways to avoid symptomatic hypoglycemia. Discussed sick day management. Discussed foot care. Reminded to get yearly retinal exam. Medication changes per orders. Diabetes will be reassessed in 6 months. Assessment & Plan (10/30/2017 9:42 AM CDT): Diabetes is improving with lifestyle modifications. Chronic , well controlled, on lifestyle habits - diet and exercise 08/2017 - A1c - 5.9 % Advised to follow up with eye doctor in 04/2018 Reminded to bring in blood sugar diary at next visit. Dietary recommendations for ADA diet. Regular aerobic exercise. Discussed ways to avoid symptomatic hypoglycemia. Discussed sick day management. Discussed foot care. Reminded to get yearly retinal exam. Diabetes will be reassessed in 1 year. Assessment & Plan (04/30/2017 5:23 PM JAPANESE INTERPRETER): HbA1c 04/2017 - 7.0 % - advised to continue healthy lifestyle habits - start Metformin 500 mg oral twice daily after meals - advise to increase Physical activity - make an eye doctor appointment soon - daily foot care - prepared foods service team member referral - follow up in 6 months Diabetes is worsening. Reminded to bring in blood sugar diary at next visit. Dietary recommendations for ADA diet. Regular aerobic exercise. Discussed ways to avoid symptomatic hypoglycemia. Discussed sick day management. Discussed foot care. Reminded to get yearly retinal exam. Medication changes per orders. Doctor Of Nursing Practice referral. Diabetes will be reassessed in 6 months. Resolved Problems Problem Noted Date Diagnosed Date Resolved Date Unstable angina pectoris 06/16/2020 Encounters Date Type Department Care Team Description 03/27/2025 Telephone [facility] Diabetes and Endocrinology [address] [place] [phone] Misti Zee NP [employer] form (Mounjaro pen injector) 02/21/2025 Orders Only [facility] Medical [facility] Diabetes and Endocrinology [address] [place] [phone] Provider, MD [place] 02/07/2025 9:30 AM CDT Office Visit [facility] Diabetes [facility] Endocrinology [address] [place] [phone] Misti Zee, KAMAR Type 2 diabetes mellitus with hyperglycemia, without long-term current use of insulin (HCC) (Primary Dx); Hyperlipidemia associated with type 2 diabetes mellitus (HCC); 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 type 2 diabetes mellitus (HCC) 02/07/2025 Orders Only [facility] Diabetes and Endocrinology [address] [place] [phone] [place] Clark MD 01/14/2025 Orders Only [facility] Medical [facility] Diabetes and Endocrinology [address] [place] [phone] ProviderColumba MD from Last 3 Months Surgical History Surgery Date Site/Laterality Comments CORONARY ANGIOPLASTY 06/17/2020 Distal RCA CARDIAC CATHETERIZATION stent x 1 KIDNEY STONE SURGERY stent x 1 02/18/2021 Medical History Medical History Date Comments Type 2 diabetes mellitus Hyperlipidemia Sleep apnea Arthritis Unstable angina pectoris (HCC) 06/16/2020 Coronary artery disease 06/17/2020 Heart attack (HCC) Sclerosis of aortic valve cusp Family History Medical History Relation Name Comments ALS Brother 1 Stroke Brother 1 Heart failure Father Diabetes Mother Mother Hypertension Mother Mother Respiraotory failure Mother Mother Stroke Sister 1 Angelo Migraines Sister 2 Relation Name Status Comments Brother 1 (Age 64) Brother 2 Alive Father (Age 89) Mother Mother (Age 84) Sister 1 Angelo Alive Sister 2 Alive Social History Tobacco Use Types Packs/Day Years Used Date Smoking Tobacco: Former Cigarettes Q uit: 06/12/2003 Smokeless Tobacco: Never Alcohol Use Standard Drinks/Week Comments Yes 2 (1 standard drink = 0.6 oz pur e alcohol) PHQ-2 Answer Date Recorded PHQ-2 Total Score (If total score is 3 or more points, staff should administer the PHQ-9) 0 04/11/2022 Sex and Gender Information Value Date Recorded Sex Assigned at Not on file Legal Sex Male 10:41 AM CDT Gender Identity Male 07/03/2020 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 Sexual Orientation Not on file 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 Not on file Not on charlette e Obstetrics History Last Filed Vital Signs Vital Sign Reading Time Taken Comments Blood Pressure 114/80 02/07/2025 9:07 AM CDT Pulse 69 02/07/2025 9:07 AM CDT Temperature 36.3 C (97.4 F) 09/16/2019 9:44 AM CDT Respiratory Rate 18 02/07/2025 9:07 AM CDT Oxygen Saturation 95% 10/02/2024 9:24 AM CDT Inhaled Oxygen Concentration - - Weight 88 kg (194 lb) 02/07/2025 9:07 AM CDT Height 180.3 cm (5' 11) 02/07/2025 9:07 AM CDT Body Mass Index 27.06 02/07/2025 9:07 AM CDT Plan of Treatment Health Maintenance Due Date Last Done Comments Colon Cancer Screening-Colonoscopy 1965 Hepatitis C Screening 1965 DTaP/Tdap/Td Vaccine (1 - Tdap) 12/19/1974 Hepatitis B Screening 12/19/1981 Regular Well Visit/Exam 18-64 12/19/1981 Pneumococcal vaccine <65 (1 of 2 - PCV) 12/19/1982 Zoster Vaccine (1 of 2) 12/19/2013 Depression Screening 04/11/2023 04/11/2022, 01/17/2022, 02/18/2021, Additional history exists Covid-19 Vaccine (3 - 2024-2 6 season) 2025 04/08/2021, 08/14/2020 Influenza Vaccine (#1) 2025 Hemoglobin A1C 08/09/2025 02/07/2025, 04/2 06/2024, 03/26/2024, Additional history exists Albumin Creatinine Ratio, Urine 09/30/2025 09/30/2024, 10/09/2023, 08/01/2022, Additional history exists Foot Exam 09/30/2025 09/30/2024, 042 02/2024, 08/01/2022, Additional history exists Lipid Panel 01/27/2026 01/27/2025, 04/2 08/2024, 03/26/2024, Additional history exists eGFR 01/27/2026 01/27/2025, 04/0 08/2024, 03/26/2024, Additional history exists Prostate Cancer Screening-PSA 03/26/2026 03/26/2024 Dilated Eye Exam 12/27/2026 12/27/2024, 08/2023, 03/13/2023, Additional history exists Procedures Procedure Name Priority Date/Time Associated Diagnosis Comments POCT GLUCOSE Routine 02/07/2025 9:07 AM CDT Type 2 diabetes mellitus with hyperglycemia, without long-term current use of insulin (HCC) POCT HEMOGLOBIN A1C Routine 02/07/2025 9 :07 AM CDT Type 2 diabetes mellitus with hyperglycemia, without long-term current use of insulin (HCC) COMPREHENSIVE METABOLIC PANEL Routine 01/27/2025 10:47 AM CDT LIPID PANEL Routine 01/27/2025 10:47 AM CDT PROSTATE-SPECIFIC AG, SERUM Routine 01/27/2025 10:47 AM CDT TSH Routine 01/27/2025 10:47 AM CDT HM DIABETES EYE EXAM Routine 12/27/2024 3:44 PM CDT ALBUMIN CREATININE RATIO, URINE Routine 09/30/2024 9:54 AM CDT Type 2 diabetes mellitus with hyperglycemia, without long-term current use of insulin (HCC) PSA DIAGNOSTIC Routine 03/26/2024 10:40 AM CDT Diabetes mellitus (HCC) Coronary atherosclerosis of [place] coronary artery Hyperlipemia Routine general medical examination at a health care facility from Last 3 Months or Most Recently Relevant to Health Maintenance Results * (ABNORMAL) POCT hemoglobin A1c (02/07/2025 9:07 AM CDT) Hemoglobin A1C, POC 5.9(A) 4.0 - 5.6 % Capillary blood 02/07/2025 9 :07 AM CDT Misti Zee NP POINT OF CARE TEST ORDERA BLES Final Result * (ABNORMAL) POCT glucose (02/07/2025 9:07 AM CDT) Glucose Blood, POC 174 Normal Fasting 70 - 100, Random <200 mg/dL Comment:FBG Blood 02/07/2025 9:07 AM CDT Misti Zee SUPERVISOR [employer] POINT OF CARE TEST ORDERA BLES Final Result * Prostate-Specific Ag, Serum (01/27/2025 10:47 AM CDT) SCRIBED PSA, Serum 0.94 <=4.00 - NA EXTERNAL LAB Blood 01/27/2025 10:4 7 AM CDT Historical Provider MD LAB BLOOD ORDERABLES Edit ed Result - Final Performing Organization Address [facility] de Phone Number EXTERNAL LAB * TSH (01/27/2025 10:47 AM CDT) Scribed TSH 2.10 0.40 - 4.50 mcU/mL EXTERNAL LAB Blood 01/27/2025 10:4 7 AM CDT Historical Provider MD LAB BLOOD ORDERABLES Edit ed Result - Final Performing Organization Address [facility] de Phone Number EXTERNAL LAB * Lipid panel (01/27/2025 10:47 AM CDT) SCRIBED Cholesterol, Total 184 30 - 199 mg/dL EXTERNAL LAB SCRIBED Triglycerides 120 <=149 mg/dL EXTERNAL LAB SCRIBED HDL 79 >=40 mg/dL EXTERNAL LAB SCRIBED LDL 83 <=129 mg/dL EXTERNAL LAB Scribed Non-HDL Cholesterol 105 NONE mg/dL EXTERNAL LAB SCRIBED Total Cholesterol/HDL Ratio 2.3 NONE EXTERNAL LAB Blood 01/27/2025 10:4 7 AM CDT Historical Provider MD LAB BLOOD ORDERABLES Edit ed Result - Final Performing Organization Address City/[facility]/ZIP Co de Phone Number EXTERNAL LAB * (ABNORMAL) Comprehensive metabolic panel (01/27/2025 10:47 AM CDT) SCRIBED Sodium 138 135 - 146 mmol/L EXTERNAL LAB SCRIBED Potassium 4.6 3.5 - 5.3 mmol/L EXTERNAL LAB SCRIBED Chloride 103 98 - 110 mmol/L EXTERNAL LAB SCRIBED Carbon Dioxide 26 20 - 32 mmol/L EXTERNAL LAB SCRIBED Anion Gap 0(A) 2 - 15 mmol/L EXTERNAL LAB Comment:No value given SCRIBED Urea Nitrogen (BUN) 17 7 - 25 mg/dL EXTERNAL LAB SCRIBED Creatinine 1.08 0.70 - 1.35 mg/dL EXTERNAL LAB SCRIBED Glucose 122(A) 65 - 99 mg/dL EXTERNAL LAB SCRIBED Calcium 9.9 8.6 - 10.3 mg/dL EXTERNAL LAB SCRIBED Bilirubin 0.7 0.2 - 1.2 mg/dL EXTERNAL LAB SCRIBED Plasma Protein 7.0 6.1 - 8.1 g/dL EXTERNAL LAB SCRIBED Albumin 5.0 3.6 - 5.1 g/dL EXTERNAL LAB SCRIBED Alkaline Phosphatase 70 35 - 144 Units/L EXTERNAL LAB SCRIBED Alanine Transaminase (ALT) 22 9 - 46 Units/L EXTERNAL LAB SCRIBED Aspartate Transaminase (AST) 18 10 - 35 Units/L EXTERNAL LAB SCRIBED eGFR 78 >60 mL/min/1.7 3 m2 EXTERNAL LAB Blood 01/27/2025 10:4 7 AM CDT Historical Provider LAB BLOOD ORDERABLES Edit ed Result - Final EXTERNAL LAB * DIABETES EYE EXAM (12/27/2024 3:44 PM CDT) Historical Provider HEALTH MAINTENANCE Edited Result - Final * Albumin Creatinine Ratio, Urine (09/30/2024 9:54 AM CDT) Albumin Ur <12.0 mg/L Comment: Interpretive Data No reference range established. Current interpretive data was last revised 2018. Creatinine Ur 146.1 mg/dL [facility] HUBBARD Comment: Interpretive Data No reference range established. Current interpretive data was last revised 2018. Albumin Creatinine Ratio, Ur <8 1 - 29 mg/g [facility] Urine 09/30/2024 9:54 AM CDT 09/30/2024 3:28 PM CDT Misti Zee SUPERVISOR [employer] LAB URINE ORDERABLES Jessica l Result [facility] [id number] [place], [place] [id number] * PSA diagnostic (03/26/2024 10:40 AM CDT) PSA-Total 1.18 <=5.40 ng/mL Comment: Interpretive Data AGE SEX REFERENCE INTERVAL 0 minutes-150 years Female None 0 minutes-49 years Male None 50-59 years Male 0-3.90 60-69 years Male 0-5.40 70-79 years Male 0-6.20 80-150 years Male 0-6.20 The Shannon PSA Total assay procedure was used. Results from different manufacturers or methods may not be comparable. Serial testing should be performed using the same method. Current interpretive data last revised 21. Blood Venous blood specimen / Unknown 03/26/2024 10:40 AM CDT 03/26/2024 6:29 PM CDT Narrative [facility] - 03/26/2024 7:10 PM CDT Fax results to christopher Barker [phone] Aníbal Barker MD LAB BLOOD ORDERABLES Fi nal Result Performing Organization Address [facility] Co de Phone Number [facility] [address] [address] [facility] [address] [place], [place] [phone] from Last 3 Months or Most Recently Relevant to Health Maintenance Insurance [facility] ACCESS [facility] OPEN ACCESS [employer] OPEN ACCESS Care Teams Gut Sorter Relationship Specialty Start Date End Date Aníbal Barker MD [address] [facility] [address] [place] [address] PCP - General 10/25/17 Aníbal Barker MD [address] [facility] [address] [place] [address] Family Medicine 10/25/17
--- OUTSIDE RECORDS SUMMARY | 2025-03-28 00:25 | XMS_ITS | Encounter Summary ---
Author Organization [facility] Address [address] [place] [id number] Care Team Providers Care Programming Equipment Operator Name Role Phone Aníbal Barker MD Primary Care Provider [phone] Encounter Details Date Type Department Care Team (Late st Contact Info) Description 03/05/2025 [employer] Message Enc [place] Pre-Admission Testing [facility] [place] [address] Hermann, [facility] Provider Surgery instructions Social History Tobacco Use Types Packs/Day Years Used Date Smoking Tobacco: Former Cigarettes 1 18 S tarted: 1986 Smokeless Tobacco: Never Comments:Quit 2003 Alcohol Use [...] on file documented as of this encounter Visit Diagnoses Not on filedocumented in this encounter Care Teams Programming Equipment Operator Relationship Specialty Start Date End Date Aníbal Barker MD [address] [facility] [address] [place] [address] PCP - General FAMILY PRACTICE 09/09/24 Dr. Luis Fernando Barrera Physician CARDIOLOGY 06/12/24 documented as of this encounter
--- OUTSIDE RECORDS SUMMARY | 2025-03-28 00:25 | XMS_ITS | Clinical Summary ---
Author Organization [facility] Address [address] [place] [address] Care Team Providers Care Boilermaker Apprentice Name Role Phone Aníbal Barker MD Primary Care Provider [phone] Allergies No known active allergies Medications tamsulosin (FLOMAX) 0.4 MG Cap Take 1 capsule (0.4 mg total) by mouth daily. Active rosuvastatin (CRESTOR) 10 MG tablet Take 1 tablet (10 mg total) by mouth daily. Active tirzepatide (MOUNJARO) 5 MG/0.5ML injectionIndica tions:Diabetes Mellitus Inject 2.5 mg into the skin every 7 days. Indications: Diabetes Every Monday Active Vitamin D3 (VITAMIN D) 50 mcg tablet Take 1 tablet (50 mcg total) by mouth daily. Active eszopiclone (LUNESTA) 2 MG tablet Take 1 tablet (2 mg total) by mouth nightly at bedtime. 5 Active Docusate Sodium (STOOL SOFTENER OR) Take 1 tablet by mouth daily. Active aspirin 81 MG chewable tablet Chew 1 tablet (81 mg total) by mouth daily. Active doxycycline hyclate (VIBRAMYCIN) 100 MG capsule Take 1 capsule (100 mg total) by mouth 2 (two) times daily. x30 days 03/05/20 25 Discontinue d(Error) phenazopyridine (PYRIDIUM) 100 MG tabletIndicatio ns:Bladder stone Take 1 tablet (100 mg total) by mouth 3 (three) times daily as needed for Pain. 9 tablet 5 03/15/20 25 Active Problems Problem Noted Date Diagnosed Date Bladder stone 03/12/2025 Nephrolithiasis 09/17/2024 Encounters Date Type Department Care Team Description 03/12/2025 10:52 AM CDT - 03/12/2025 12:[address] [facility] [place] [address] Tobi Fiore MD CYSTOSCOPY WITH BLADDER STONE REMOVAL 03/12/2025 10:43 AM CDT Anesthesia Event [facility] [place] [address] Madisyn Hidalgo MD Jackson, Samantha Rae, FNP 03/12/2025 8:33 AM CDT - 03/12/2025 12:29 PM CDT Hospital En[facility] [place] [address] Tobi Fiore MD Discharge Disposition: Home or Self Care (Routine Discharge) 03/12/2025 Travel 03/12/2025 Prep for Procedure [facility] [address] [place] [address] Tobi Fiore MD 03/06/2025 8:50 AM CDT - 03/06/2025 11:59 PM CDT Hospital Encounter [facility] [address] [place] [address] Bernie Fiore MD Discharge Disposition: Home or Self Care (Routine Discharge) 03/05/[address] [facility] Pre-Admission Testing [facility] [place] [address] Hermann [facility] Provider Surgery instructions 03/05/2025 Travel 01/29/2025 9:30 AM CDT - 01/29/2025 11:59 PM CDT Hospital Encounter [facility] [place] [address] Krystal Kennedy, KAMAR Discharge Disposition: Home or Self Care (Routine Discharge) 01/29/2025 Travel from Last 3 Months Social History Tobacco Use Types Packs/Day Years Used Date Smoking Tobacco: Former Cigarettes 1 18 S tarted: 1985 Smokeless Tobacco: Never Tobacco Cessation:Counseling Given: Not Answered Comments:Quit 2003 Alcohol Use Standard Drinks/Week Comments [...] Sign Reading Time Taken Comments Blood Pressure 114/82 03/12/2025 12:15 PM CDT Pulse 62 03/12/2025 12:15 PM CDT Temperature 36.4 C (97.6 F) 03/12/2025 12:15 PM CDT Respiratory Rate 16 03/12/2025 12:1 5 PM CDT Oxygen Saturation 96% 03/12/2025 12: 15 PM CDT Inhaled Oxygen Concentration - - Weight 86.5 kg (190 lb 11.2 oz) 03/12/2025 9:42 AM CDT Height 180.3 cm (5' 11) 03/12/2025 9:42 AM CDT Body Mass Index 26.6 03/12/2025 9:42 AM CDT Plan of Treatment Health Maintenance Due Date Last Done Comments Colorectal Cancer Screening Colonoscopy (10 Years) 1963 Annual Physical 12/19/1966 Hepatitis C 12/19/1981 DTaP, Tdap and Td Vaccines ( 1 - Tdap) 12/19/1982 Pneumococcal Vaccine: 50+ Ye ars (1 of 1 - PCV) 12/19/2013 Zoster Vaccines (1 of 2) 12/19/2013 COVID-19 Vaccine (1 - 2023-2 5 season) 2025 Influenza Adult (#1) 2025 RSV Immunization or 60+ Years (1 - 1-dose 75+ series) 12/19/2038 Hepatitis A Vaccines Aged Out 10/15/2016 No long er eligible based on patient's age to complete this topic Meningococcal B Vaccine Aged Out No l onger eligible based on patient's age to complete this topic Meningococcal Vaccine Aged Out No ian aaron eligible based on patient's age to complete this topic RSV Immunizations Under 20 Months Aged Out No longer eligible based on patient's age to complete this topic Procedures Procedure Name Priority Date/Time Associated Diagnosis Comments POCT GLUCOSE - DOCKED DEVICE Routine 03/12/2025 11:21 AM CDT STONE ANALYSIS Routine 03/12/2025 10:52 AM CDT CYSTOURETHROSCOPY 03/12/2025 10:43 AM CDT WEAK URINARY STREAM, FREQUENCY OF MICTURITION, CALCIUM KIDNEY STONE R39.12, R35.0, N20.0 Case Notes SCHED BY FAX 02/18/2025 LCS PHONE ASSESS REMOVE BLADDER STONE,>2.5CM 03/12/2025 10:43 AM CDT WEAK URINARY STREAM, FREQUENCY OF MICTURITION, CALCIUM KIDNEY STONE R39.12, R35.0, N20.0 Case Notes SCHED BY FAX 02/18/2025 LCS PHONE ASSESS POCT GLUCOSE - DOCKED DEVICE Routine 03/12/2025 9:31 AM CDT URINE BACTERIA CULTURE Routine 9:48 AM CDT Weak urinary stream Frequency of micturition Calcium kidney stone Nephrolithiasis HC URINALYSIS AUTO W/O MICRO Routine 03/06/2025 9:48 AM CDT Weak urinary stream Frequency of micturition Calcium kidney stone Nephrolithiasis PARTIAL THROMBOPLASTIN TIME,PTT Routine 03/06/2025 9:13 AM CDT Weak urinary stream Frequency of micturition Calcium kidney stone Nephrolithiasis PROTHROMBIN TIME, VENOUS Routine 9:13 AM CDT Weak urinary stream Frequency of micturition Calcium kidney stone Nephrolithiasis BASIC METABOLIC PANEL Routine 03/06/2025 9:13 AM CDT Weak urinary stream Frequency of micturition Calcium kidney stone Nephrolithiasis CBC W/DIFF AUTOMATED Routine 03/06/2025 9:13 AM CDT Weak urinary stream Frequency of micturition Calcium kidney stone Nephrolithiasis XR ABD KUB Routine 01/29/2025 10:07 AM CDT Calcium kidney stone from Last 3 Months Results * (ABNORMAL) POCT glucose (03/12/2025 11:21 AM CDT) Only the most recent of2 resultswithin the time period is included. GLUCOSE POC 124(H) 70 - 99 mg/dL 03/12/2025 11:23 AM CDT [facility] 03/12/2025 11:2 1 AM CDT us Tobi Fiore MD POCT ORDERABLES - DEVICE Final Result [facility] [address] [place] [address], * STONE ANALYSIS (03/12/2025 10:52 AM CDT) SOURCE BLADDER STONE 03/12/2025 11:03 AM CDT [facility] STONE ANALYSIS COMPONENT REPORT 03/23/2025 4:19 AM CDT [facility] Comment: Calcium Oxalate Dihydrate (Weddellite) 20% Calcium Oxalate Monohydrate (Whewellite) 80% STONE ANALYSIS WEIGHT 0.030 g 03/23/2025 4:19 AM CDT [facility] Comment: Formalin, surgical gel, tape adhesive or transport media interfere with the analytical procedure. Follow up testing with the UroRisk(R) Panel is suggested for affected samples, if clinically indicated. This test was developed and its analytical performance characteristics have been determined by [facility]. It has not been cleared or approved by the FDA. This assay has been validated pursuant to the CLIA regulations and is used for clinical purposes. Test performed by [facility] [address] [place] [address] Home Energy Inspector: Dalia Escalante MD,PHD,CALVIN Test Reported by [facility], [facility], [address] [place], [place] Cody Baca M.D., Ph.D., Director of Laboratories , CLIA [id number] STONE URINARY BLADDER CALCULUS SPECIMEN / Unknown 03/12/2025 10:58 AM CDT Tobi Fiore MD BODY FLUIDS AND STOOLS OR DERABLES Final Result [facility] [place] [id number] [place], [place] , [place] [phone] [facility] [address] [place] [address], [place] [phone] * URINALYSIS (03/06/2025 9:48 AM CDT) COLOR (U) YELLOW 03/06/2025 10:25 AM CDT [facility] TRANSPARENCY CLEAR 03/06/2025 10:25 AM CDT [facility] SPECIFIC GRAVITY (U) <1.005 1.000 - 1.030 03/06/2025 10:25 AM CDT [facility] U PH 6.0 5.0 - 9.0 03/06/2025 10:25 AM T [facility] LEUKOCYTES (U) NEGATIVE NEGATIVE 03/06/2025 10:25 AM CDT [facility] NITRITES NEGATIVE NEGATIVE 03/06/2025 10:25 AM CDT [facility] PROTEIN RANDOM (U) NEGATIVE NEGATIVE 03/06/2025 10:25 AM CDT [facility] GLUCOSE (U) NEGATIVE NEGATIVE 03/06/2025 10:25 AM CDT [facility] KETONES MG/DL (U) NEGATIVE NEGATIVE 03/06/2025 10:25 AM CDT [facility] BILIRUBIN (U) NEGATIVE NEGATIVE 03/06/2025 10:25 AM CDT [facility] BLOOD (U) NEGATIVE NEGATIVE 03/06/2025 10:25 AM CDT [facility] URINE SPECIMEN OBTAINED BY CLEAN CATCH PROCEDURE / Unknown 03/06/2025 9:48 AM CDT us Tobi Fiore MD URINE ORDERABLES Final Re sult Performing Organization Address [facility]/ZIP Co de Phone Number [facility] [address] [place] [address], [place] [phone] * URINE BACTERIA CULTURE (03/06/2025 9:48 AM CDT) SPEC DESCRIPTION URINE CLEAN CATCH 03/06/2025 9:48 AM CDT [facility] SPECIAL REQUESTS NO SPECIAL REQUEST 03/06/2025 9:48 AM CDT [facility] CULTURE RESULT NO GROWTH 2 DAYS 03/08/2025 8:03 AM CDT [facility] URINE SPECIMEN OBTAINED BY CLEAN CATCH PROCEDURE / Unknown 03/06/2025 9:48 AM CDT 03/06/2025 9:56 AM CDT us Tobi Fiore MD MICROBIOLOGY - GENERAL OR DERABLES Final Result [facility] [address] [place] [address], [place] [phone] [facility] [address] [place] [address], [place] [phone] * (ABNORMAL) PARTIAL THROMBOPLASTIN TIME,PTT (03/06/2025 9:13 AM CDT) PTT 38.3(H) 25.1 - 36.5 SEC 03/06/2025 10:28 AM CDT [facility] 03/06/2025 9:13 AM CDT Tobi Fiore MD LABORATORY Final Res ult Performing Organization Address [facility] Co de Phone Number [facility] [address] [place] [address], [place] [phone] * PROTIME/INR, VENOUS (03/06/2025 9:13 AM CDT) PROTIME 12.1 9.1 - 12.4 SEC 03/06/2025 10:28 AM CDT [facility] INR 1.0 03/06/2025 10:28 AM CDT [facility] Comment: Recommend INR ranges for Oral Anticoagulant Therapy: Mechanical Cardiac Values 2.5-3.5 All others indication 2.0-3.0 03/06/2025 9:13 AM CDT Tobi Fiore MD LABORATORY Final Res ult Performing Organization Address [facility]/ZIP Co de Phone Number [facility] [address] [place] [address], [place] [phone] * (ABNORMAL) BASIC METABOLIC PANEL (03/06/2025 9:13 AM CDT) GLUCOSE 156(H) 70 - 99 MG/DL 03/06/2025 10:35 AM CDT [facility] BUN 13 7 - 18 MG/DL 03/06/2025 10:35 AM CDT [facility] CREATININE S/P/B 1.23 0.7 - 1.3 MG/DL 03/06/2025 10:35 AM CDT [facility] SODIUM S/P/B 138 136 - 145 MMOL/L 03/06/2025 10:35 AM CDT [facility] POTASSIUM S/P/B 4.2 3.5 - 5.1 MMOL/L 03/06/2025 10:35 AM CDT [facility] CHLORIDE S/P/B 103 100 - 108 MMOL/L 03/06/2025 10:35 AM CDT [facility] CO2 28.0 21 - 32 MMOL/L 03/06/2025 10:35 AM T [facility] CALCIUM S/P/B 9.3 8.5 - 10.1 MG/DL 03/06/2025 10:35 AM T [facility] ANION GAP 7.0 5 - 15 MMOL/L 03/06/2025 10:35 AM T [facility] BUN CREATININE RATIO 10.6 6 - 26 03/06/2025 10:35 AM T [facility] GFR ESTIMATE 67(L) >90 ML/MIN/1.7 3 M2 03/06/2025 10:35 AM T [facility] Comment: NOTE: eGFR is not calculated for patients <18 years of age. This is an estimated GFR calculation using the new CKD EPI creatinine equation without race and so does not require a correction factor for race. This estimated GFR should not be used for calculating drug doses. 03/06/2025 9:13 AM CDT us Tobi Fiore MD LABORATORY Final Res ult [facility] [address] [place] [address], [place] [phone] * (ABNORMAL) CBC W/DIFF AUTOMATED (03/06/2025 9:13 AM CDT) WBC 5.30 4.4 - 11.0 x10'3/uL 03/06/2025 10:21 AM T [facility] RBC 5.55 4.50 - 5.90 x10'6/uL 03/06/2025 10:21 AM CDT [facility] HGB 17.5 14.0 - 17.5 G/DL 03/06/2025 10:21 AM CDT [facility] HCT 49.3 41.5 - 50.4 % 03/06/2025 10:21 AM T [facility] MCV 88.8 80.0 - 96.0 FL 03/06/2025 10:21 AM T [facility] MCH 31.5(H) 26.5 - 31.4 PG 03/06/2025 10:21 AM T [facility] MCHC 35.5(H) 31.9 - 34.8 G/DL 03/06/2025 10:21 AM T [facility] RDW 11.8(L) 12.3 - 14.3 % 03/06/2025 10:21 AM T [facility] PLT 207 151 - 353 x10'3/uL 03/06/2025 10:21 AM T [facility] MPV 10.5 9.7 - 11.9 FL 03/06/2025 10:21 AM T [facility] RBC MORPHOLOGY NORMAL 03/06/2025 10:21 AM T [facility] PLT MORPH. NORMAL 03/06/2025 10:21 AM T [facility] WBC MORPHOLOGY NORMAL 03/06/2025 10:21 AM T [facility] LYMPHOCYTES % 23.2 15.8 - 45.0 % 03/06/2025 10:21 AM CDT [facility] NEUTROPHILS % 66.6 42.1 - 71.9 % 03/06/2025 10:21 AM CDT [facility] MONOCYTES % 6.6 5.7 - 12.5 % 03/06/2025 10:21 AM CDT [facility] EOSINOPHILS 2.1 0.0 - 5.6 % 03/06/2025 10:21 AM CDT [facility] BASOPHILS 1.1 0.0 - 1.3 % 03/06/2025 10:21 AM CDT [facility] ABS. NEUTROPHILS 3.53 1.40 - 6.00 x10'3/uL 03/06/2025 10:21 AM CDT [facility] IMMATURE GRANS % 0.4 0.0 - 0.5 % 03/06/2025 10:21 AM CDT [facility] ABS. LYMPHOCYTES 1.23 0.80 - 4.70 x10'3/uL 03/06/2025 10:21 AM CDT [facility] 03/06/2025 9:13 AM CDT us Tobi Fiore MD LABORATORY Final Res ult Performing Organization Address City/State/[facility] Co de Phone Number [facility] [address] [place] [address], * XR ABD KUB (01/29/2025 10:07 AM CDT) Anatomical Region Laterality Modality Abdomen Radiographic Ely ging 01/29/2025 10:5 2 PM CDT Impressions 01/29/2025 10:53 PM CDT IMPRESSION: 1. No definite renal or ureteric stones identified. 2. Moderate fecal burden within the colon rectum, which can seen with constipation. Ordered By: KRYSTAL KENNEDY Interpreted By: Mariam Rock MD, 01/29/2025 10:52 PM Narrative 01/29/2025 10:53 PM CDT [place] [address] PROCEDURE: XR ABD KUB HISTORY: calcium kidney stone TECHNIQUE: Supine image(s) of the abdomen and pelvis were obtained on 01/29/2025 at 0 957 hours. COMPARISON: None. FINDINGS: LINES OR TUBES: None LUNG BASES: The lung bases are clear. BOWEL GAS PATTERN: There are no abnormally dilated loops of bowel. Moderate fecal burden within the colon and rectum. FREE AIR: No free air is detected on this supine exam. CALCIFICATIONS/OTHER: None MUSCULOSKELETAL: Degenerative changes are seen in the visualized portions of the spine. Procedure Note Mariam Rock MD - 01/29/2025 [place] [address] PROCEDURE: XR ABD KUB HISTORY: calcium kidney stone TECHNIQUE: Supine image(s) of the abdomen and pelvis were obtained on01/29/2025 at 0 957 hours. COMPARISON: None. FINDINGS: LINES OR TUBES: None LUNG BASES: The lung bases are clear. BOWEL GAS PATTERN: There are no abnormally dilated loops of bowel.Moderate fecal burden within the colon and rectum. FREE AIR: No free air is detected on this supine exam. CALCIFICATIONS/OTHER: None MUSCULOSKELETAL: Degenerative changes are seen in the visualized portionsof the spine. IMPRESSION: 1. No definite renal or ureteric stones identified. 2. Moderate fecal burden within the colon rectum, which can seen withconstipation. Ordered By: KRYSTAL KENNEDY Interpreted By: Mariam Rock MD, 01/29/2025 10:52 PM Krystal Kennedy CATEGORY CONSULTANT GENERAL IMAGING Final Result from Last 3 Months Insurance [employer] Care Teams Boilermaker Apprentice Relationship Specialty Start Date End Date Aníbal Barker MD [address] [place], [place] [id number] PCP - General FAMILY PRACTICE 09/09/24 Dr. Luis Fernando Barrera Physician CARDIOLOGY 06/12/24
--- OUTSIDE RECORDS SUMMARY | 2025-03-28 00:25 | XMS_ITS | Encounter Summary ---
Author Organization [facility] Address [address] [place] [address] Care Team Providers Care Mold Stripper Name Role Phone Aníbal Barker MD Primary Care Provider [phone] Encounter Details Date Type Department Care Team (Late st Contact Info) Description 03/12/2025 Prep for Procedure [facility] [address] [place], [place] [id number] Tobi Fiore MD [address] [place] [address] [place] [address] Social History Tobacco Use Types Packs/Day Years [...] on file documented as of this encounter Functional Status * Calculated C-SSRS Risk Score (Lifetime/Recent) Answer Date of Assessment Author Status No Risk Indicated 03/12/2025 9:44 AM Vic Castro RN Active * [place] Suicide Severity Rating Scale (Screener/Recent Self-Report) Question Answer Date of Assessment Author Status 1. Wish to be (Past 1 Month) No 03/12/2025 9:44 AM Chilo Castro RN Active 2. Non-Specific Active Suicidal Thoughts (Past 1 Month) No 03/12/2025 9:44 AM CDT Chilo Julian RN Active 6. Suicidal Behavior (Lifetime) No 03/12/2025 9:44 AM CDT Chilo Julian RN Active documented as of this encounter Plan of Treatment Not on file documented as of this encounter Results * URINALYSIS (03/06/2025 9:48 AM CDT) COLOR (U) YELLOW 03/06/2025 10:25 AM CDT [facility] TRANSPARENCY CLEAR 03/06/2025 10:25 AM T [facility] SPECIFIC GRAVITY (U) <1.005 1.000 - 1.030 03/06/2025 10:25 AM CDT [facility] U PH 6.0 5.0 - 9.0 03/06/2025 10:25 AM T [facility] LEUKOCYTES (U) NEGATIVE NEGATIVE 03/06/2025 10:25 AM T [facility] NITRITES NEGATIVE NEGATIVE 03/06/2025 10:25 AM T [facility] PROTEIN RANDOM (U) NEGATIVE NEGATIVE 03/06/2025 10:25 AM [facility] GLUCOSE (U) NEGATIVE NEGATIVE 03/06/2025 10:25 AM T [facility] KETONES MG/DL (U) NEGATIVE NEGATIVE 03/06/2025 10:25 AM T [facility] BILIRUBIN (U) NEGATIVE NEGATIVE 03/06/2025 10:25 AM T [facility] BLOOD (U) NEGATIVE NEGATIVE 03/06/2025 10:25 AM T [facility] URINE SPECIMEN OBTAINED BY CLEAN CATCH PROCEDURE / Unknown 03/06/2025 9:48 AM CDT us Tobi Fiore MD URINE ORDERABLES Final Re sult Performing Organization Address [facility]/ZIP Co de Phone Number [facility] [address] [place] [address], [place] [phone] * URINE BACTERIA CULTURE (03/06/2025 9:48 AM CDT) SPEC DESCRIPTION URINE CLEAN CATCH 03/06/2025 9:48 AM CDT [facility] SPECIAL REQUESTS NO SPECIAL REQUEST 03/06/2025 9:48 AM CDT [facility] CULTURE RESULT NO GROWTH 2 DAYS 03/08/2025 8:03 AM CDT [facility] URINE SPECIMEN OBTAINED BY CLEAN CATCH PROCEDURE / Unknown 03/06/2025 9:48 AM CDT 03/06/2025 9:56 AM CDT Tobi Fiore MD MICROBIOLOGY - GENERAL OR DERABLES Final Result Performing Organization Address [facility] Co de Phone Number [facility] [address] [place] [address], [place] [phone] [facility] [address] [place] [address], [place] [phone] * (ABNORMAL) PARTIAL THROMBOPLASTIN TIME,PTT (03/06/2025 9:13 AM CDT) PTT 38.3(H) 25.1 - 36.5 SEC 03/06/2025 10:28 AM CDT [facility] 03/06/2025 9:13 AM CDT Tobi Fiore MD LABORATORY Final Res ult Performing Organization Address City/[facility]/ZIP Co de Phone Number [facility] [address] [place] [address], [place] [phone] * PROTIME/INR, VENOUS (03/06/2025 9:13 AM CDT) PROTIME 12.1 9.1 - 12.4 SEC 03/06/2025 10:28 AM CDT [facility] INR 1.0 03/06/2025 10:28 AM CDT [facility] Comment: Recommend INR ranges for Oral Anticoagulant Therapy: Mechanical Cardiac Values 2.5-3.5 All others indication 2.0-3.0 03/06/2025 9:13 AM CDT us Tobi Fiore MD LABORATORY Final Res ult [facility] [address] [place] [address], * (ABNORMAL) BASIC METABOLIC PANEL (03/06/2025 9:13 AM CDT) GLUCOSE 156(H) 70 - 99 MG/DL 03/06/2025 10:35 AM CDT [facility] BUN 13 7 - 18 MG/DL 03/06/2025 10:35 AM CDT [facility] CREATININE S/P/B 1.23 0.7 - 1.3 MG/DL 03/06/2025 10:35 AM CDT [facility] SODIUM S/P/B 138 136 - 145 MMOL/L 03/06/2025 10:35 AM CDT [facility] POTASSIUM S/P/B 4.2 3.5 - 5.1 MMOL/L 03/06/2025 10:35 AM CDT [facility] CHLORIDE S/P/B 103 100 - 108 MMOL/L 03/06/2025 10:35 AM CDT [facility] CO2 28.0 21 - 32 MMOL/L 03/06/2025 10:35 AM CDT [facility] CALCIUM S/P/B 9.3 8.5 - 10.1 MG/DL 03/06/2025 10:35 AM CDT [facility] ANION GAP 7.0 5 - 15 MMOL/L 03/06/2025 10:35 AM CDT [facility] BUN CREATININE RATIO 10.6 6 - 26 03/06/2025 10:35 AM CDT [facility] GFR ESTIMATE 67(L) >90 ML/MIN/1.7 3 M2 03/06/2025 10:35 AM CDT [facility] Comment: NOTE: eGFR is not calculated for patients <18 years of age. This is an estimated GFR calculation using the new CKD EPI creatinine equation without race and so does not require a correction factor for race. This estimated GFR should not be used for calculating drug doses. 03/06/2025 9:13 AM CDT us Tobi Fiore MD LABORATORY Final Res ult [facility] [address] [place] [address], [place] [phone] * (ABNORMAL) CBC W/DIFF AUTOMATED (03/06/2025 9:13 AM CDT) WBC 5.30 4.4 - 11.0 x10'3/uL 03/06/2025 10:21 AM CDT [facility] RBC 5.55 4.50 - 5.90 x10'6/uL 03/06/2025 10:21 AM CDT [facility] HGB 17.5 14.0 - 17.5 G/DL 03/06/2025 10:21 AM CDT [facility] HCT 49.3 41.5 - 50.4 % 03/06/2025 10:21 AM CDT [facility] MCV 88.8 80.0 - 96.0 FL 03/06/2025 10:21 AM CDT [facility] MCH 31.5(H) 26.5 - 31.4 PG 03/06/2025 10:21 AM CDT [facility] MCHC 35.5(H) 31.9 - 34.8 G/DL 03/06/2025 10:21 AM CDT [facility] RDW 11.8(L) 12.3 - 14.3 % 03/06/2025 10:21 AM CDT [facility] PLT 207 151 - 353 x10'3/uL 03/06/2025 10:21 AM T [facility] MPV 10.5 9.7 - 11.9 FL 03/06/2025 10:21 AM T [facility] RBC MORPHOLOGY NORMAL 03/06/2025 10:21 AM T [facility] PLT MORPH. NORMAL 03/06/2025 10:21 AM T [facility] WBC MORPHOLOGY NORMAL 03/06/2025 10:21 AM T [facility] LYMPHOCYTES % 23.2 15.8 - 45.0 % 03/06/2025 10:21 AM T [facility] NEUTROPHILS % 66.6 42.1 - 71.9 % 03/06/2025 10:21 AM CDT [facility] MONOCYTES % 6.6 5.7 - 12.5 % 03/06/2025 10:21 AM T [facility] EOSINOPHILS 2.1 0.0 - 5.6 % 03/06/2025 10:21 AM CDT [facility] BASOPHILS 1.1 0.0 - 1.3 % 03/06/2025 10:21 AM CDT [facility] ABS. NEUTROPHILS 3.53 1.40 - 6.00 x10'3/uL 03/06/2025 10:21 AM CDT [facility] IMMATURE GRANS % 0.4 0.0 - 0.5 % 03/06/2025 10:21 AM CDT [facility] ABS. LYMPHOCYTES 1.23 0.80 - 4.70 x10'3/uL 03/06/2025 10:21 AM CDT [facility] 03/06/2025 9:13 AM CDT us Tobi Fiore MD LABORATORY Final Res ult [facility] [id number] [place] [address], documented in this encounter Visit Diagnoses Diagnosis Weak urinary stream- Primary Slowing of urinary stream Frequency of micturition Urinary frequency Calcium kidney stone Calculus of kidney Nephrolithiasis Calculus of kidney documented in this encounter Care Teams Mold Stripper Relationship Specialty Start Date End Date Aníbal Barker MD [address] [place] [address] PCP - General FAMILY PRACTICE 09/09/24 Dr. Luis Fernando Barrera Physician CARDIOLOGY 06/12/24 documented as of this encounter
--- OUTSIDE RECORDS SUMMARY | 2025-03-28 00:25 | XMS_ITS | Encounter Summary ---
Author Organization [facility] Healthcare Address [address] [place] [address] Care Team Providers Care Chips Screen Tender Name Role Phone Aníbal Barker MD Primary Care Provider Aníbal Barker MD Unavailable [phone] Reason for Visit * Reason Onset Date Comments [employer] form 03/27/2025 Mounjaro pen inj rosemarie Encounter Details Date Type Department Care Team (Late st Contact Info) Description 03/27/2025 Telephone [facility] Medical Group Diabetes and Endocrinology [address] [place] [id number] Misti Zee, BOILING [employer] [address] [facility] [address] [address] Cigna form (Mounjaro pen injector) Social History Tobacco Use Types Packs/Day Years [...] CDT Gender Identity Male 07/03/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 documented in this encounter Plan of Treatment Not on file documented as of this encounter Visit Diagnoses Not on filedocumented in this encounter Care Teams Chips Screen Tender Relationship Specialty Start Date End Date Aníbal Barker MD [address] [place] [address] PCP - General 10/25/17 Aníbal Barker MD [address] [place] [address] Family Medicine 10/25/17 documented as of this encounter
--- OUTSIDE RECORDS SUMMARY | 2025-03-28 00:25 | XMS_ITS | Patient Health Record ---
Author Organization [address] [facility] Address [address] [facility] [address] [place] [address] Care Team Providers Care Hand Frame Surgical Elastic Knitter Name Role Phone Aníbal Barker MD Primary Care Provider Cristo Camejo Unavailable [phone] Reason For Referral No Information Plan Of Treatment No Information
[2025-03-28 09:47] VITALS: BP 116/87; PULSE 67; RESP 18; TEMP 36.5; O2SAT 99
[2025-03-28] MEDS: LACTATED RINGERS 1,000 ML 150 ML IV CONT (09:59)
--- NOTE | 2025-03-28 10:46 | WPDANESEPPF ---
Anes - Initial Pre Proc Eval Procedure: Operation Date: 03/28/25 11:00 Proposed Procedures p Screening Colonoscopy - Robert Flores MD Date/Time: 03/28/25 10:46 Surgeon: Robert Flores MD Pre Op Diagnosis: Personal history of colon polyps, unspecified Patient Data Age: 59 Gender: M Height: 1.8 m Weight: 84.1 kg Last Vital Signs Temp 36.5 C 03/28/25 09:47 Pulse 67 03/28/25 09:47 Resp 18 03/28/25 09:47 BP 116/87 03/28/25 09:47 Pulse Ox 99 03/28/25 09:47 O2 Del Method Room Air 03/28/25 09:47 Allergies Allergy/AdvReac Type Severity Reaction Status Date / Time No Known Allergies Allergy Unknown Verified 03/28/25 09:46 Home Medications ?Medication ?Instructions ?Recorded ?Confirmed ?Type rosuvastatin 10 mg tablet (Crestor) 10 mg PO HS 03/01/21 03/19/25 History blood sugar diagnostic (OneTouch #100 ea 03/29/22 03/17/25 Rx Ultra Test strips) aspirin 81 mg chewable tablet 81 mg PO DAILY@0800 #90 tabs 12/26/22 03/19/25 Rx (Children's Aspirin) tirzepatide 5 mg/0.5 mL 5 mg subcut WEEKLY 01/10/24 03/19/25 History subcutaneous pen injector (Mounjaro) eszopiclone 2 mg tablet (Lunesta) 2 mg PO QHS PRN insomnia #90 tabs 02/18/25 03/19/25 Rx tamsulosin 0.4 mg capsule 0.4 mg PO Q24H 03/19/25 03/19/25 History Laboratory Tests 03/28/25 09:57 POC Capillary Glucose 153 H mg/dl (65-105) Patient hx anesthesia problems: none Family hx anesthesia problems: none Results Review: All pre-operative results and documents have been reviewed as part of the pre-operative evaluation. [facility] Past Medical History Medical History Psoriasis Coronary artery disease [place] (myocardial infarction) Type 2 diabetes mellitus without complications Overweight JESSIKA (obstructive sleep apnea) Uses a dental apparatus. Surgical History Surgical History Status post primary angioplasty with coronary stent Family History Family History Mother Diabetes mellitus Hyperlipidemia Hypertension Family history of arthritis Sibling Acute myocardial infarction Cerebrovascular accident ALS (amyotrophic lateral sclerosis) Schizo affective schizophrenia Sibling Hyperlipidemia Social History Social History Social History: Mr. Casillas lives at home with his and son. 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 His primary care provider is Dr. Aníbal Barker. He designates his , Ana, as his surrogate decision maker and would like to be a full code. Smoking packs per day: 1.5 Smoking cigarettes per day: 30.0 Years smoked: 18 Smoking pack-years: 27.00 Smoking status: Former smoker Tobacco type: cigarettes Second hand tobacco smoke exposure: Yes Smoking end date: 06/12/03 Alcohol intake: never Alcohol use details: RARE Substance use: never Substance use type: does not use Do You Feel Safe in your Home?: Yes Lack of Transportation: No Lack of Food: Never True Current Housing: I Have Housing Concerned About Future Housing: No Difficulty Paying Gas/Electric Bills: No Difficulty Paying for Meds: No Currently Unemployed: No Education: Don't Know Difficulty w/ Childcare or Family Care: No Living arrangements: with family Occupation/Education: occupation Gender identity (if verbalized by the patient): Male Sexual Orientation (if Verbalized by the Patient): Straight or Heterosexual Spiritual care concerns: No Anes - Eval Final PreProcedure Day of Procedure 03/28/25 10:46 Patient weight: overweight Heart: regular rate and rhythm Lungs: clear to auscultation Airway: Mallampati scale class II Neurological: alert and oriented Last oral intake: >/= 8 hours ASA classification: III Emergent: no Anesthetic plan: proceed Anesthesia type and monitoring: general GIVS and standard monitoring Results Review: All pre-operative results and documents have been reviewed as part of the pre-operative evaluation. Informed Consent: The patient's anesthetic plan and its attendant risks and benefits were discussed with the patient/family/POA. Questions were solicited and answers provided to the satisfaction of the patient/family/POA.
--- NOTE | 2025-03-28 10:57 | PM.IMHP ---
H&P: HPI History of Present Illness Date/Time: 03/28/25 10:57 Chief Complaint: History of colon polyps Narrative: The patient has a history of colonic polyps, the last colonoscopy was 5 years ago. Review of Systems Review of Systems: All systems reviewed & are unremarkable except as noted in HPI and below PMFSH Past Medical History Medical History Psoriasis Coronary artery disease [place] (myocardial infarction) Type 2 diabetes mellitus without complications Overweight JESSIKA (obstructive sleep apnea) Uses a dental apparatus. Surgical History Surgical History Status post primary angioplasty with coronary stent Family History Family History Mother Diabetes mellitus Hyperlipidemia Hypertension Family history of arthritis Sibling Acute myocardial infarction Cerebrovascular accident ALS (amyotrophic lateral sclerosis) Schizo affective schizophrenia Sibling Hyperlipidemia Social History Social History Social History: Mr. Casillas lives at home with his and son. 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 His primary care provider is Dr. Aníbal Barker. He designates his , Ana, as his surrogate decision maker and would like to be a full code. Smoking packs per day: 1.5 Smoking cigarettes per day: 30.0 Years smoked: 18 Smoking pack-years: 27.00 Smoking status: Former smoker Tobacco type: cigarettes Second hand tobacco smoke exposure: Yes Smoking end date: 06/12/03 Alcohol intake: never Alcohol use details: RARE Substance use: never Substance use type: does not use Do You Feel Safe in your Home?: Yes Lack of Transportation: No Lack of Food: Never True Current Housing: I Have Housing Concerned About Future Housing: No Difficulty Paying Gas/Electric Bills: No Difficulty Paying for Meds: No Currently Unemployed: No Education: Don't Know Difficulty w/ Childcare or Family Care: No Living arrangements: with family Occupation/Education: occupation Gender identity (if verbalized by the patient): Male Sexual Orientation (if Verbalized by the Patient): Straight or Heterosexual Spiritual care concerns: No Meds Home Medications and Allergies Home Medications ?Medication ?Instructions ?Recorded ?Confirmed ?Type rosuvastatin 10 mg tablet (Crestor) 10 mg PO HS 03/01/21 03/19/25 History blood sugar diagnostic (OneTouch #100 ea 03/29/22 03/17/25 Rx Ultra Test strips) aspirin 81 mg chewable tablet 81 mg PO DAILY@0800 #90 tabs 12/26/22 03/19/25 Rx (Children's Aspirin) tirzepatide 5 mg/0.5 mL 5 mg subcut WEEKLY 01/10/24 03/19/25 History subcutaneous pen injector (Mounjaro) eszopiclone 2 mg tablet (Lunesta) 2 mg PO QHS PRN insomnia #90 tabs 02/18/25 03/19/25 Rx tamsulosin 0.4 mg capsule 0.4 mg PO Q24H 03/19/25 03/19/25 History Allergies Allergy/AdvReac Type Severity Reaction Status Date / Time No Known Allergies Allergy Unknown Verified 03/28/25 09:46 Vital Signs Vital Signs - 24 hr 03/28/25 09:47 Temperature 97.7 F Pulse Rate 67 Respiratory Rate 18 Blood Pressure 116/87 Pulse Oximetry 99 Oxygen Delivery Room Air Exam Const: General: cooperative and healthy appearing Resp: Effort & Inspection: normal respiratory effort and able to speak in complete sentences Auscultation: clear to auscultation bilaterally Cardio: Rate: regular rate Rhythm: regular rhythm GI: Inspection: normal to inspection GI Palp: No No hepatosplenomegaly present Auscultation: normal bowel sounds Rectal Exam: deferred Skin: General skin exam: normal color Psych: Appearance: grossly normal Mental Status: mental status grossly normal Assessment and Plan Assessment and plan (1) History of colonic polyps: Code(s): Z86.0100 - Personal history of colon polyps, unspecified Status: Acute Assessment and Plan: The patient is deemed a good candidate for the procedure. Consent signed. Will proceed.
[2025-03-28] MEDS: SIMETHICONE ORAL SUSPENSION 20 MG/0.3 ML 30 ML BOTTLE 0.6 ML IRRIGATION (11:21)
[2025-03-28 11:34] VITALS: BP 92/52; PULSE 62; RESP 19; O2SAT 99
[2025-03-28 11:44] VITALS: BP 104/74; PULSE 62; RESP 18; O2SAT 100
[2025-03-28 11:54] VITALS: BP 107/79; PULSE 60; RESP 16; O2SAT 100
== END 2025-03-28 11:56 | disposition home or self-care (01) ==
PROVIDERS: PCP Family Medicine; Referring Provider Physician Assistant Medical; Visit Provider Internal Medicine Gastroenterology
PROC: 0DJD8ZZ Inspection of Lower Intestinal Tract, Via Natural or Artificial Opening Endoscopic (ICD-10-PCS; CPT 45378; principal; 2025-03-28 11:00)
DX: Z12.11 Encounter for screening for malignant neoplasm of colon (principal); Z86.0100 Personal history of colon polyps, unspecified; K57.30 Diverticulosis of large intestine without perforation or abscess without bleeding; K64.8 Other hemorrhoids; E11.9 Type 2 diabetes mellitus without complications; Z87.891 Personal history of nicotine dependence
CPT/HCPCS: 45378; 82948; J2003; J2704; J7120